=== PATIENT | male | born 1955 | race Caucasian/White ===

== ENCOUNTER 2019-02-19 10:37 | Inpatient (IN) | payer SELFPAY ==
[~2019-02-19] VITALS: Ht 175.3 cm; Wt 88.5 kg
[~2019-02-19 10:37] MED LIST: AMLO10TA4 PO; AMOX1TAB61 PO; ASPI-612 PO; ASPI325T8 PO; ATOR20TA58 PO; CARV6.25 PO; CLOP75TA PO; DILT360C PO; DOXY100T PO; FAMO-63 PO; FURO-69 PO; LEVO100T PO; LISI-338 PO; METH4TAB2 PO; METH4TAB7 PO; METO25TA4 PO; NICOTINE 21MG PATCH. TD PRN; Nicotine 21MG TD; OXYC1TAB15 PO
[2019-02-19] MEDS ORDERED: dilTIAZem IV PUSH 25 MG/5 ML VIAL IVP ONE (11:00)
[2019-02-19] MEDS ORDERED: dilTIAZem INJ 125 MG in IV DEXTROSE 5% 100ML 100 ML IV ONE (11:00)
--- NOTE | 2019-02-19 11:04 | PHYS DOC ---
Past Medical History Past Medical History: COPD, Hypertension, Other Additional Past Medical Histor: INSOMNIA Past Surgical History: Appendectomy, Other Additional Past Surgical Histo: 5TH DISC REMOVAL Alcohol Use: None Drug Use: None Adult General Chief Complaint Chief Complaint: MULTIPLE COMPLAINTS HPI HPI 63-year-old male presenting the emergency department today feeling generally weak with chest pain and having a fast heart rate. He has not felt well since he was discharged from the hospital here about a week ago. He has felt weak and generally without any focal weakness. This is worsened over the past few days. This morning he started having chest pain which is a sharp shooting nonradiating pain that is moderate comes and goes and is without alleviating factors. Review of systems is negative for abdominal pain vomiting fevers or neck pain neck stiffness diarrhea. All other review of systems is negative unless otherwise noted in history of present illness. ED course: 63-year-old male presenting emergency today feeling weak found to be in A. fib with RVR on EKG. EKG shows irregularly irregular rhythm with tachycardia. ST segments congruent. Not suggestive of ACS. IV established. Chest x-ray blood work ordered. Diltiazem bolus and drip ordered. CBC shows polycythemia. White blood cell count within normal limits. Chemistry panel shows mild elevation in potassium bilirubin and increased creatinine from baseline. ProBNP is also elevated. Troponin within normal limits. Chest x-ray shows mild asymmetric haziness likely related the patient's A. fib with RVR although could be atelectasis. I do not believe the patient is a pneumonia he is not coughing or have a fever. We will admit the patient to the CVC unit on diltiazem. Cardiology consult placed. Dr. Rodriguez accepts the patient for admission. Review of Systems Review of Systems SEE ABOVE. Current Medications Current Medications Current Medications Medications (Trade) Dose Ordered Sig/Tarun Start Time Stop Time Status Last Admin Dose Admin Diltiazem HCl (Cardizem Iv Push) 10 mg 1X ONCE 02/19/19 11:00 02/19/19 11:01 DC 02/19/19 11:15 10 MG Diltiazem HCl 125 mg/Dextrose 125 ml @ 5 mls/hr 1X ONCE 02/19/19 11:00 02/20/19 11:59 02/19/19 11:16 5 MLS/HR Allergies Allergies Allergies Coded Allergies Type Severity Reaction Last Updated Verified No Known Drug Allergies 06/11/15 No Physical Exam Physical Exam SEE ABOVE Constitutional: Not in acute distress. HENT: Normocephalic, atraumatic, bilateral external ears normal, oropharynx moist, no oral exudates, nose normal. Eyes: PERRLA, EOMI, conjunctiva normal, no discharge. Neck: Normal range of motion, no tenderness, supple, no stridor. [] Cardiovascular: Tachycardic rate that is irregular without a murmur. Lungs & Thorax: Bilateral breath sounds clear to auscultation Abdomen: Bowel sounds normal, soft, no tenderness, no masses, no pulsatile masses. [] Skin: Warm, dry, no erythema, no rash. [] Back: No tenderness, no CVA tenderness. [] Extremities: No tenderness, no cyanosis, no clubbing, ROM intact, no edema. [] Neurologic: Alert and oriented X 3, normal motor function, normal sensory function, no focal deficits noted. [] Psychologic: Affect normal, judgement normal, mood normal. [] Current Patient Data Vital Signs Vital Signs Date Time Temp Pulse Resp B/P (MAP) Pulse Ox O2 Delivery O2 Flow Rate FiO2 02/19/19 12:04 118 19 97/61 (73) 94 Room Air 02/19/19 10:40 97.4 97.4 Lab Values Laboratory Tests Test 02/19/19 10:52 02/19/19 11:40 White Blood Count 10.6 x10^3/uL (4.0-11.0) Red Blood Count 6.76 x10^6/uL (4.30-5.70) H Hemoglobin 21.2 g/dL (13.0-17.5) H Hematocrit 63.4 % (39.0-53.0) H Mean Corpuscular Volume 94 fL (79-100) Mean Corpuscular Hemoglobin 31 pg (25-35) Mean Corpuscular Hemoglobin Concent 33 g/dL (31-37) Red Cell Distribution Width 16.1 % (11.5-14.5) H Platelet Count 209 x10^3/uL (140-400) Neutrophils (%) (Auto) 70 % (31-73) Lymphocytes (%) (Auto) 18 % (24-48) L Monocytes (%) (Auto) 11 % (0-9) H Eosinophils (%) (Auto) 1 % (0-3) Basophils (%) (Auto) 0 % (0-3) Neutrophils # (Auto) 7.4 x10^3/uL (1.8-7.7) Lymphocytes # (Auto) 1.9 x10^3/uL (1.0-4.8) Monocytes # (Auto) 1.2 x10^3/uL (0.0-1.1) H Eosinophils # (Auto) 0.1 x10^3/uL (0.0-0.7) Basophils # (Auto) 0.0 x10^3/uL (0.0-0.2) Sodium Level 132 mmol/L (136-145) L Potassium Level 5.8 mmol/L (3.5-5.1) H Chloride Level 96 mmol/L (98-107) L Carbon Dioxide Level 33 mmol/L (21-32) H Anion Gap 3 (6-14) L Blood Urea Nitrogen 47 mg/dL (8-26) H Creatinine 2.1 mg/dL (0.7-1.3) H Estimated GFR (Cockcroft-Gault) 32.1 Glucose Level 144 mg/dL (70-99) H Calcium Level 9.4 mg/dL (8.5-10.1) Total Bilirubin 1.2 mg/dL (0.2-1.0) H Direct Bilirubin 0.3 mg/dL (0.0-0.2) H Aspartate Amino Transferase (AST) 34 U/L (15-37) Alanine Aminotransferase (ALT) 80 U/L (16-63) H Alkaline Phosphatase 65 U/L (46-116) Troponin I Quantitative < 0.017 ng/mL (0.000-0.055) KV-Wsv-L-Type Natriuretic Peptide 1258 pg/mL (0-124) H Total Protein 6.6 g/dL (6.4-8.2) Albumin 3.2 g/dL (3.4-5.0) L Lipase 201 U/L (73-393) Laboratory Tests 02/19/19 10:52 Laboratory Tests 02/19/19 11:40 EKG EKG [] Radiology/Procedures Radiology/Procedures [] Course & Med Decision Making Course & Med Decision Making Pertinent Labs and Imaging studies reviewed. (See chart for details) [] Dragon Disclaimer Dragon Disclaimer This electronic medical record was generated, in whole or in part, using a voice recognition dictation system. Departure Departure Impression: Primary Impression: Atrial fibrillation with RVR Additional Impression: DONI (acute kidney injury) Disposition: 09 ADMITTED INPATIENT Admitting Physician: KRISTIE Condition: STABLE Referrals: NO PCP (PCP) Problem Qualifiers BUDDY MATTA MD Feb 19, 2019 11:04
[2019-02-19 11:15] LABS: BASO % 0 % (0-3); EOS # 0.1 x10^3/uL (0.0-0.7); EOS % 1 % (0-3); HEMATOCRIT 63.4 % (39.0-53.0); LYMPH # 1.9 x10^3/uL (1.0-4.8); LYMPH % 18 % (24-48); MEAN CORPUSCULAR HEMOGLOBIN 31 pg (25-35); MEAN CORPUSCULAR HGB CONC 33 g/dL (31-37); MEAN CORPUSCULAR VOLUME 94 fL (79-100); MONO # 1.2 x10^3/uL (0.0-1.1); MONO % 11 % (0-9); NEUT # 7.4 x10^3/uL (1.8-7.7); NEUT % 70 % (31-73); PLATELET COUNT 209 x10^3/uL (140-400); RED BLOOD COUNT 6.76 x10^6/uL (4.30-5.70); RED CELL DISTRIBUTION WIDTH 16.1 % (11.5-14.5); WHITE BLOOD COUNT 10.6 x10^3/uL (4.0-11.0)
--- NOTE | 2019-02-19 11:15 | RAD ---
Study: CHEST AP ONLY Indication: Chest pain. Comparison: 02/10/2019 Findings: Emphysematous changes of the lungs with multifocal scarring and bullae formation. Ill-defined haziness at the left lung base potentially related to volume loss. No pneumothorax or layering effusion. Subtle ovoid density at the superior aspect of the left lower lobe projecting over the posterior aspect of the eighth rib. Unchanged configuration of the cardiomediastinal silhouette and yocasta. Scattered granulomas. Impression: 1. Mild asymmetric haziness at the left lung base is nonspecific but could be related to atelectasis though an infectious infiltrate could appear similar. Recommend correlation with patient symptomatology. 2. Bullous emphysematous changes of the lungs. 3. Subtle left lower lobe nodule projecting over the posterior aspect of the eighth rib measures similar in size to a nodule at this location seen on the 02/11/2019 CT, taking into consideration differences in technique. Follow-up for this nodule is recommended, the timing of which was detailed on the 02/11/2019 report. Electronically signed by: BIA SERNA MD (02/19/2019 11:12 AM) [facility]
--- NOTE | 2019-02-19 11:24 | EKG ---
[facility] [address] [place] [address] Test Date: 2019-02-19 Test Time: 10:46:28 Pat Name: TIMMY KINNEY Department: Room: Gender: M Reference Data Expert: : 1955 Requested By: BUDDY MATTA Order Number: [id number] Reading MD: Measurements Intervals [place] Rate: 150 P: MT: QRS: 119 QRSD: 108 T: 31 QT: 294 QTc: 467 Interpretive Statements IRREGULAR RHYTHM, NO P-WAVE FOUND ABNORMAL RIGHT AXIS DEVIATION R-S TRANSITION ZONE IN V LEADS DISPLACED TO THE LEFT ABNORMAL ECG RI6.01 No previous ECG available for comparison
[2019-02-19 11:49] LABS: HEMOGLOBIN 21.2 g/dL (13.0-17.5)
[2019-02-19 12:04] LABS: CALCIUM 9.4 mg/dL (8.5-10.1); CREATININE 2.1 mg/dL (0.7-1.3); GFR 32.1; POTASSIUM 5.8 mmol/L (3.5-5.1)
--- NOTE | 2019-02-19 12:08 | PDOC1 ---
History and Physical Date of Admission Date of Admission DATE: 02/19/19 TIME: 12:08 Identification/Chief Complaint Chief Complaint Chest pain Source Source: Patient History of Present Illness History of Present Illness Mr Herrera is a 63-year-old M w/ PMHx smoker, CAD, HTN, HLD, COPD, GERD, OA, recovering methamphetamine user (quit 3 weeks ago) with recent diagnosis of LL pneumonia and AFIB with RVR returns with afib with RVR and DONI with large bump in creatinine to 2.1, K of 5.8, as well as Hb 21. He is feeling worse than his prior hospital stay, unable to get up out of bed. He was also diagnosed with severe cardiomyopathy with EF 20-25% and hypothyroidism last stay with TSH of 24 and started on levothyroxine 100mcg daily as well as carvedilol and lisinopril. He also notes his significant other on 12/15/2018 and he has been grief stricken, has no one with whom to spend Thanksgiving. Past Medical History Cardiovascular: CAD, HTN, Hyperlipidemia Pulmonary: COPD, Pneumonia GI: GERD Musculoskeletal: low back pain, Osteoarthritis Renal/: Other Past Surgical History Past Surgical History: Appendectomy, Other Family History Family History: Family History Unknown Social History Smoke: 1 pack per day ALCOHOL: rare Drugs: Crystal meth Current Medications Current Medications Current Medications Diltiazem HCl (Cardizem Iv Push) 10 mg 1X ONCE IVP Last administered on 02/19/19at 11:15; Start 02/19/19 at 11:00; Stop 02/19/19 at 11:01; Status DC Diltiazem HCl 125 mg/Dextrose 125 ml @ 5 mls/hr 1X ONCE IV Last administered on 02/19/19at 11:16; Start 02/19/19 at 11:00; Stop 02/20/19 at 11:59 Active Scripts Active Aspirin Ec (Aspirin) 81 Mg Tablet. 1 Tab PO DAILY Lasix (Furosemide) 20 Mg Tablet 1 Tab PO DAILY 30 Days Coreg (Carvedilol) 6.25 Mg Tablet 6.25 Mg PO BIDWMEALS 30 Days Lisinopril 5 Mg Tablet 1 Tab PO DAILY MDD 30 Percocet 5-325 Mg Tablet (Oxycodone/Acetaminophen) 1 Each Tablet 1 Tab PO PRN Q4HRS PRN Atorvastatin Calcium 20 Mg Tablet 20 Mg PO QHS [Nicotine 21MG] 1 PATCH Patch 1 Patch TD PRN DAILY PRN Doxycycline Hyclate 100 Mg Tablet 100 Mg PO BID Clopidogrel (Clopidogrel Bisulfate) 75 Mg Tablet 75 Mg PO DAILY Reported Medrol (Methylprednisolone) 4 Mg Tab.ds.pk 4 Mg PO DAILY Synthroid (Levothyroxine Sodium) 100 Mcg Tablet 100 Mcg PO DAILYAC Pepcid (Famotidine) 20 Mg Tablet 20 Mg PO BID Allergies Allergies: Coded Allergies: No Known Drug Allergies (Unverified , 06/11/15) ROS General: YES: Fatigue, Malaise; No: Chills, Night Sweats, Appetite, Other PSYCHOLOGICAL ROS: No: Anxiety, Behavioral Disorder, Concentration difficultie, Decreased libido, Depression, Disorientation, Hallucinations, Hostility, Irritablity, Memory difficulties, Mood Swings, Obsessive thoughts, Physical abuse, Sexual abuse, Sleep disturbances, Suicidal ideation, Other Eyes: No Blurry vision, No Decreased vision, No Double vision, No Dry eyes, No Excessive tearing, No Eye Pain, No Itchy Eyes, No Loss of vision, No Photophobia, No Scotomata, No Uses contacts, No Uses glasses, No Other HEENT: No: Heacaches, Visual Changes, Hearing change, Nasal congestion, Nasal discharge, Oral lesions, Sinus pain, Sore Throat, Epistaxis, Sneezing, Snoring, Tinnitus, Vertigo, Vocal changes, Other ALLERGY AND IMMUNOLOGY: No: Hives, Insect Bite Sensitivity, Itchy/Watery Eyes, Nasal Congestion, Post Nasal Drip, Seasonal Allergies, Other Hematological and Lymphatic: No: Bleeding Problems, Blood Clots, Blood Transfusions, Brusing, Night Sweats, Pallor, Swollen Lymph Nodes, Other ENDOCRINE: No: Breast Changes, Galactorrhea, Hair Pattern Changes, Hot Flashes, Malaise/lethargy, Mood Swings, Palpitations, Polydipsia/polyuria, Skin Changes, Temperature Intolerance, Unexpected Weight Changes, Other Breast: No New/Changing Breast Lumps, No Nipple changes, No Nipple discharge, No Other Respiratory: YES: Shortness of breath; No: Cough, Hemoptysis, Orthopnea, Pleuritic Pain, SOB with excertion, Sputum Changes, Stridor, Tachypnea, Wheezing, Other Cardiovascular: No Chest Pain, No Palpitations, No Orthopnea, No Paroxysmal Noc. Dyspnea, No Edema, No Lt Headedness, No Other Gastrointestinal: No Nausea, No Vomiting, No Abdominal Pain, No Diarrhea, No Constipation, No Melena, No Hematochezia, No Other Genitourinary: No Dysuria, No Frequency, No Incontinence, No Hematuria, No Retention, No Discharge, No Urgency, No Pain, No Flank Pain, No Other, No , No , No , No , No , No , No Musculoskeletal: No Gait Disturbance, No Joint Pain, No Joint Stiffness, No Joint Swelling, No Muscle Pain, No Muscular Weakness, No Pain In:, No Swelling In:, No Other Neurological: No Behavorial Changes, No Bowel/Bladder ControlChng, No Confusion, No Dizziness, No Gait Disturbance, No Headaches, No Impaired Coord/balance, No Memory Loss, No Numbness/Tingling, No Seizures, No Speech Problems, No Tremors, No Visual Changes, No Weakness, No Other Skin: No Dry Skin, No Eczema, No Hair Changes, No Lumps, No Mole Changes, No Mottling, No Nail Changes, No Pruritus, No Rash, No Skin Lesion Changes, No Other, No Acne Physical Exam General: Alert, Oriented X3, Cooperative, mild distress HEENT: Atraumatic, PERRLA, EOMI, Mucous membr. moist/pink Lungs: Other (Scattered wheezing) Heart: irregularly irregular Abdomen: Normal bowel sounds, Soft, No tenderness, No hepatosplenomegaly, No masses Rectal Exam: not examined Extremities: No clubbing, No cyanosis, No edema, Normal pulses, No tenderness/swelling Skin: No rashes, No breakdown, No significant lesion Neuro: Normal speech, Strength at 5/5 X4 ext, Normal tone, Sensation intact, Cranial nerves 3-12 NL, Reflexes 2+ Psych/Mental Status: Mental status NL, Mood NL Vitals Vitals Vital Signs Date Time Temp Pulse Resp B/P (MAP) Pulse Ox O2 Delivery O2 Flow Rate FiO2 02/19/19 11:34 122 24 96/73 (81) 94 Room Air 02/19/19 10:40 97.4 97.4 Labs Labs Laboratory Tests Test 02/19/19 10:52 02/19/19 11:40 White Blood Count 10.6 x10^3/uL (4.0-11.0) Red Blood Count 6.76 x10^6/uL (4.30-5.70) Hemoglobin 21.2 g/dL (13.0-17.5) Hematocrit 63.4 % (39.0-53.0) Mean Corpuscular Volume 94 fL (79-100) Mean Corpuscular Hemoglobin 31 pg (25-35) Mean Corpuscular Hemoglobin Concent 33 g/dL (31-37) Red Cell Distribution Width 16.1 % (11.5-14.5) Platelet Count 209 x10^3/uL (140-400) Neutrophils (%) (Auto) 70 % (31-73) Lymphocytes (%) (Auto) 18 % (24-48) Monocytes (%) (Auto) 11 % (0-9) Eosinophils (%) (Auto) 1 % (0-3) Basophils (%) (Auto) 0 % (0-3) Neutrophils # (Auto) 7.4 x10^3/uL (1.8-7.7) Lymphocytes # (Auto) 1.9 x10^3/uL (1.0-4.8) Monocytes # (Auto) 1.2 x10^3/uL (0.0-1.1) Eosinophils # (Auto) 0.1 x10^3/uL (0.0-0.7) Basophils # (Auto) 0.0 x10^3/uL (0.0-0.2) Sodium Level 132 mmol/L (136-145) Potassium Level 5.8 mmol/L (3.5-5.1) Chloride Level 96 mmol/L (98-107) Carbon Dioxide Level 33 mmol/L (21-32) Anion Gap 3 (6-14) Blood Urea Nitrogen 47 mg/dL (8-26) Creatinine 2.1 mg/dL (0.7-1.3) Estimated GFR (Cockcroft-Gault) 32.1 Glucose Level 144 mg/dL (70-99) Calcium Level 9.4 mg/dL (8.5-10.1) Laboratory Tests Test 02/19/19 10:52 02/19/19 11:40 White Blood Count 10.6 x10^3/uL (4.0-11.0) Red Blood Count 6.76 x10^6/uL (4.30-5.70) Hemoglobin 21.2 g/dL (13.0-17.5) Hematocrit 63.4 % (39.0-53.0) Mean Corpuscular Volume 94 fL (79-100) Mean Corpuscular Hemoglobin 31 pg (25-35) Mean Corpuscular Hemoglobin Concent 33 g/dL (31-37) Red Cell Distribution Width 16.1 % (11.5-14.5) Platelet Count 209 x10^3/uL (140-400) Neutrophils (%) (Auto) 70 % (31-73) Lymphocytes (%) (Auto) 18 % (24-48) Monocytes (%) (Auto) 11 % (0-9) Eosinophils (%) (Auto) 1 % (0-3) Basophils (%) (Auto) 0 % (0-3) Neutrophils # (Auto) 7.4 x10^3/uL (1.8-7.7) Lymphocytes # (Auto) 1.9 x10^3/uL (1.0-4.8) Monocytes # (Auto) 1.2 x10^3/uL (0.0-1.1) Eosinophils # (Auto) 0.1 x10^3/uL (0.0-0.7) Basophils # (Auto) 0.0 x10^3/uL (0.0-0.2) Sodium Level 132 mmol/L (136-145) Potassium Level 5.8 mmol/L (3.5-5.1) Chloride Level 96 mmol/L (98-107) Carbon Dioxide Level 33 mmol/L (21-32) Anion Gap 3 (6-14) Blood Urea Nitrogen 47 mg/dL (8-26) Creatinine 2.1 mg/dL (0.7-1.3) Estimated GFR (Cockcroft-Gault) 32.1 Glucose Level 144 mg/dL (70-99) Calcium Level 9.4 mg/dL (8.5-10.1) VTE Prophylaxis Ordered VTE Prophylaxis Devices: Yes VTE Pharmacological Prophylaxi: Yes Assessment/Plan Assessment/Plan A/P: Afib with RVR - with Atrial flutter: paroxysmal, was sinus prior to d/c last visit on coreg, he has been taking this. Severe cardiomyopathy - EF 20-25% DONI - with his atrophied left kidney on prior CT and recent lisinopril exposure and hyperkalemia will stop his lisinopril and transition to imdur + hydralazine. Will get renal doppler given his large Cr bump with lisinopril administration Hyperkalemia - hold lisinopril, kayexelate Hypothyroidism - TSH 24 Smoker - counseled on cessation CAD - LAD stenting in 2017 COPD - with continued tobaccoism better Chronic diastolic/systolic CHF: EF 20-25% HTN - controlled HLD - goal LDL is < 70mg/dL Moderate size infrarenal AAA Recovering methamphetamine user (quit 3 weeks ago) GERD - tums prn FEN - Cardiac diet PPX - eliquis per cardiology recs FULL CODE Dispo - Inpatient for recurrent atrial arrhythmia, DONI, cardiomyopathy. DONNA CLINE MD Feb 19, 2019 12:08
[2019-02-19 12:10] LABS: ALBUMIN 3.2 g/dL (3.4-5.0); DIRECT BILIRUBIN 0.3 mg/dL (0.0-0.2); TOTAL BILIRUBIN 1.2 mg/dL (0.2-1.0); TOTAL PROTEIN 6.6 g/dL (6.4-8.2)
[2019-02-19] MEDS ORDERED: MORPHINE SULFATE 2 MG/ML VIAL. IV PRN (12:45)
[2019-02-19] MEDS ORDERED: ONDANSETRON PF 4 MG/2 ML VIAL. IV PRN (12:45)
[2019-02-19 12:50] VITALS: BP 96/61
[2019-02-19 12:55] LABS: PROTHROMBIN TIME PATIENT 13.4 SEC (11.7-14.0)
--- NOTE | 2019-02-19 13:11 | PDOC2 ---
TEE SCHMITZ [employer] 02/19/19 1310: CARDIAC CONSULT DATE OF CONSULT Date of Consult DATE: 02/19/19 TIME: 13:05 REASON FOR CONSULT Reason for Consult: AFIB with RVR REFERRING PHYSICIAN Referring Physician: Dr. Santiago SOURCE Source: Chart review, Patient HISTORY OF PRESENT ILLNESS HISTORY OF PRESENT ILLNESS This is a 63 yo male who presented secondary to tingling in his extremities and chest pressure. Patient reports that he woke up this morning with tingling in his bilateral extremities. Also was experiencing pressure in his central chest. His symptoms persisted throughout the morning so her decided to come to the ED for further evaluation and treatment. Was seen by our service last week for new onset of AFIB RVR. Was initially started on metoprolol for rate control and converted back to SR. Prior to discharge Toprol was convert to coreg assuming for affordability. Was discharged with ASA as he does not have insurance. Echo showed LVEF of 20-25%. Applied for disability. Has a history of meth use and tobaccoism. Fortunately, has not smoked or use meth since discharge from the hospital. Now reporting that he has very little energy and feels very fatigued. Has been compliant with all of his medications and took them as usual today. PAST MEDICAL HISTORY Past Medical History Cardiovascular: CAD, HTN, Hyperlipidemia, AFIB, Cardiomyopathy, CHF, Pulmonary: COPD, Pneumonia GI: GERD Musculoskeletal: low back pain, Osteoarthritis Renal/: Other (nephrolithiasis) PAST SURGICAL HISTORY Past Surgical History Appendectomy, Other (back surgery; PCI/stent) FAMILY HISTORY Family History: Family History Unknown SOCIAL HISTORY Social History Smoke: <1 pack per day (quit 1.5 weeks ago) Drugs: Crystal meth (quit 2 weeks ago) Lives: Alone CURRENT MEDICATIONS CURRENT MEDICATIONS Current Medications Medications (Trade) Dose Ordered Sig/Tarun Route PRN Reason Start Time Stop Time Status Last Admin Dose Admin Diltiazem HCl (Cardizem Iv Push) 10 mg 1X ONCE IVP 02/19/19 11:00 02/19/19 11:01 DC 02/19/19 11:15 Diltiazem HCl 125 mg/Dextrose 125 ml @ 5 mls/hr 1X ONCE IV 02/19/19 11:00 02/20/19 11:59 02/19/19 11:16 ALLERGIES ALLERGIES: Coded Allergies: No Known Drug Allergies (Unverified , 3/18/16) ROS Review of System 14 point ROS conducted with pertinent positives noted above in HPI PHYSICAL EXAM PHYSICAL EXAM General: Alert, Oriented X3, Cooperative, No acute distress HEENT: Mucous membr. moist/pink Lungs: Other (CTA, diminished) Heart: AFIB (rate near 100) Abdomen: Soft, No tenderness Extremities: No cyanosis, No edema Skin: No breakdown, No significant lesion Neuro: Normal speech, Sensation intact Psych/Mental Status: Mental status NL, Mood NL MUSCULOSKELETAL: Osteoarthritic changes both hands VITALS/I&O VITALS/I&O: Vital Signs Date Time Temp Pulse Resp B/P (MAP) Pulse Ox O2 Delivery O2 Flow Rate FiO2 02/19/19 12:34 112 22 100/65 (77) 96 Room Air 02/19/19 10:40 97.4 97.4 LABS Lab: Laboratory Tests Test 02/19/19 10:52 02/19/19 11:40 White Blood Count 10.6 x10^3/uL (4.0-11.0) Red Blood Count 6.76 x10^6/uL (4.30-5.70) H Hemoglobin 21.2 g/dL (13.0-17.5) H Hematocrit 63.4 % (39.0-53.0) H Mean Corpuscular Volume 94 fL (79-100) Mean Corpuscular Hemoglobin 31 pg (25-35) Mean Corpuscular Hemoglobin Concent 33 g/dL (31-37) Red Cell Distribution Width 16.1 % (11.5-14.5) H Platelet Count 209 x10^3/uL (140-400) Neutrophils (%) (Auto) 70 % (31-73) Lymphocytes (%) (Auto) 18 % (24-48) L Monocytes (%) (Auto) 11 % (0-9) H Eosinophils (%) (Auto) 1 % (0-3) Basophils (%) (Auto) 0 % (0-3) Neutrophils # (Auto) 7.4 x10^3/uL (1.8-7.7) Lymphocytes # (Auto) 1.9 x10^3/uL (1.0-4.8) Monocytes # (Auto) 1.2 x10^3/uL (0.0-1.1) H Eosinophils # (Auto) 0.1 x10^3/uL (0.0-0.7) Basophils # (Auto) 0.0 x10^3/uL (0.0-0.2) Sodium Level 132 mmol/L (136-145) L Potassium Level 5.8 mmol/L (3.5-5.1) H Chloride Level 96 mmol/L (98-107) L Carbon Dioxide Level 33 mmol/L (21-32) H Anion Gap 3 (6-14) L Blood Urea Nitrogen 47 mg/dL (8-26) H Creatinine 2.1 mg/dL (0.7-1.3) H Estimated GFR (Cockcroft-Gault) 32.1 Glucose Level 144 mg/dL (70-99) H Calcium Level 9.4 mg/dL (8.5-10.1) Total Bilirubin 1.2 mg/dL (0.2-1.0) H Direct Bilirubin 0.3 mg/dL (0.0-0.2) H Aspartate Amino Transferase (AST) 34 U/L (15-37) Alanine Aminotransferase (ALT) 80 U/L (16-63) H Alkaline Phosphatase 65 U/L (46-116) Troponin I Quantitative < 0.017 ng/mL (0.000-0.055) NT-Ffn-F-Type Natriuretic Peptide 1258 pg/mL (0-124) H Total Protein 6.6 g/dL (6.4-8.2) Albumin 3.2 g/dL (3.4-5.0) L Lipase 201 U/L (73-393) Laboratory Tests 02/19/19 10:52 Laboratory Tests 02/19/19 11:40 ECHOCARDIOGRAM ECHOCARDIOGRAM <Conclusion> The ejection fraction is severely impaired. The Ejection Fraction is 20-25%. There is severe global hypokinesis. The ascending aorta is mildly dilated. DATE: 02/11/19 1229 HEART CATH HEART CATH Conclusion This patient has significant coronary artery disease with a tight lesion of the LAD. A successful PTCA and stenting of the LAD was done with a bare metal stent. The reason a bare metal stent was used is due to the financial situation of the patient I don't know if he would be able to afford Plavix for a year and also in view of lifestyle and recreational activities he may be at risk for bleeding. I would like to give him 6 months of Plavix and aspirin for life. DATE: 07/19/161825 ASSESSMENT/PLAN ASSESSMENT/PLAN 1. PAFIB with RVR; on Cardizem gtt. Was started on metoprolol last week, but convert to coreg upon discharge. Reports compliance with medications. 2. Chest pain; most probably secondary to RVR. Initial trop negative 3. Hypothyroidism: TSH 24. new. 4. COPD with tobaccoism; recently quit 5. Chronic systolic CHF; appear compensated 6. Cardiomyopathy, combined NICM/ICM; LVEF 20-25% 7. Hypertension; controlled 8. Hyperlipidemia; statin 9. CAD s/p PCI/stent to the LAD in 2017. 10. DONI on ? CKD 11. Substance abuse; H/o meth use. Has not use since last admission Recommendations Stop coreg. Start metoprolol for rate control. Toprol would be most ideal, but he will be unable to afford. Titrate off Cardizem gtt Add Amiodarone for rhythm maintenance Start Eliquis for stroke prophylaxis; 21 days of samples provided along with 1 month free card Resume secondary prevention measures Supportive care CHRISTY PERDOMO MD 02/19/19 1555: CARDIAC CONSULT ASSESSMENT/PLAN ASSESSMENT/PLAN Patient seen and examined. Agree with above nurse practitioner note. Well-known to our service since his last visit. Unfortunate, he's had a lot of social issues to deal with yet he reports that he started his medical therapy. Medication changes as noted above. Given his cardio myopathy and lack of insurance he will likely be unable to afford anything besides amiodarone at this time. THanks. Will follow along. Could consider CVN on sunday if still in afib. TEE SCHMITZ APRN Feb 19, 2019 13:10 CHRISTY PERDOMO MD Feb 19, 2019 15:55
[2019-02-19 13:12] LABS: D-DIMER 1.79 ug/mlFEU (0.00-0.50)
[2019-02-19] MEDS ORDERED: METOPROLOL TART IMMED RELEASE 25 MG TABLET. PO SCH ×2 (14:30→18:00)
[2019-02-19] MEDS ORDERED: METOPROLOL TART IMMED RELEASE 25 MG TABLET. PO ONE (14:45)
[2019-02-19] MEDS: hydrALAZINE 10 MG TABLET PO SCH ×2 (14:45→20:52)
[2019-02-19] MEDS: ISOSORBIDE MONONITRATE ER 30 MG TAB.ER.24H PO SCH (14:45)
[2019-02-19 15:00] VITALS: BP 107/55
[2019-02-19 15:15] VITALS: BP_SYST 107; BP_SYST 95; BP_DIAS 55; BP_DIAS 63
--- NOTE | 2019-02-19 16:09 | RAD ---
STUDY: THYROID ULTRASOUND INDICATION: Hypothyroidism. COMPARISON STUDY: None. TECHNIQUE: Targeted thyroid ultrasound was performed. FINDINGS: The thyroid is prominent in size with heterogeneous parenchymal echotexture and a paucity of vascularity. The right thyroid lobe is larger than the left measuring 6.1 x 2.5 x 1.8 cm compared to 4.0 x 1.7 x 1.4 cm. The isthmus is thickened at 1.3 cm. Within the left aspect of the isthmus a well-circumscribed, hypoechoic and avascular region as seen and measures 1.0 x 1.6 x 1.0 cm. IMPRESSION: 1. Enlarged thyroid gland with asymmetric prominence of the right thyroid lobe relative to the left. The thyroid parenchyma is heterogeneous and hypovascular which is a nonspecific sonographic pattern. 2. Small well-circumscribed and avascular focus within the left aspect of the isthmus suggestive of a cystic nodule and measures up to 1.6 cm in greatest dimension. This nodule does not exhibit suspicious features by sonography. Electronically signed by: BIA SERNA MD (02/19/2019 4:06 PM) [facility]
[2019-02-19] MEDS ORDERED: CARVEDILOL 6.25 MG TABLET. PO SCH (17:00)
[2019-02-19] MEDS: METOPROLOL TART IMMED RELEASE 25 MG TABLET. PO SCH (17:24)
[2019-02-19 17:44] LABS: BASO # 0.1 x10^3/uL (0.0-0.2); BASO % 1 % (0-3); EOS # 0.1 x10^3/uL (0.0-0.7); EOS % 1 % (0-3); HEMATOCRIT 57.5 % (39.0-53.0); HEMOGLOBIN 19.1 g/dL (13.0-17.5); LYMPH # 2.2 x10^3/uL (1.0-4.8); LYMPH % 19 % (24-48); MEAN CORPUSCULAR HEMOGLOBIN 31 pg (25-35); MEAN CORPUSCULAR HGB CONC 33 g/dL (31-37); MEAN CORPUSCULAR VOLUME 93 fL (79-100); MONO # 1.9 x10^3/uL (0.0-1.1); MONO % 16 % (0-9); NEUT # 7.4 x10^3/uL (1.8-7.7); NEUT % 64 % (31-73); PLATELET COUNT 195 x10^3/uL (140-400); RED CELL DISTRIBUTION WIDTH 15.9 % (11.5-14.5); WHITE BLOOD COUNT 11.5 x10^3/uL (4.0-11.0)
[2019-02-19 18:08] LABS: ALBUMIN 3.1 g/dL (3.4-5.0); CALCIUM 9.2 mg/dL (8.5-10.1); CREATININE 2.3 mg/dL (0.7-1.3); GFR 28.9; PHOSPHORUS 4.3 mg/dL (2.6-4.7); POTASSIUM 5.6 mmol/L (3.5-5.1)
[2019-02-19 19:00] VITALS: BP 147/107
[2019-02-19 19:24] LABS: % EOS 2 % (0-5); % LYMPHS 12 % (24-48); % MONOS 17 % (0-10); % SEGS 69 % (35-66); ANISOCYTOSIS SLIGHT; PLT ESTIMATE ADEQUATE (ADEQUATE)
--- NOTE | 2019-02-19 19:59 | NUR ---
hr irregular 140's reported to dr luo, said to use prn lopressor due to pt having heart failure. lcrn
[2019-02-19] MEDS: METOPROLOL TARTRATE 5 MG/5 ML VIAL. IVP PRN ×2 (20:08→22:56)
[2019-02-19 20:15] VITALS: BP 115/80
[2019-02-19] MEDS: ATORVASTATIN CALCIUM 20 MG TABLET PO SCH (20:51)
[2019-02-19] MEDS: APIXABAN 5 MG TABLET. PO SCH (20:52)
[2019-02-19] MEDS: AMIODARONE HCL 200 MG TABLET. PO SCH (20:52)
[2019-02-19 21:22] LABS: BARBITURATES NEG (NEG); BENZODIAZEPINES NEG (NEG); CANNABINOIDS NEG (NEG); COCAINE NEG (NEG); METHADONE NEG (NEG); OPIATES NEG (NEG); PHENCYCLIDINE NEG (NEG)
[2019-02-19 21:23] LABS: AMPHETAMINE/METHAMPHETAMINE NEG (NEG)
[2019-02-19] MEDS: TEMAZEPAM 15 MG CAPSULE PO PRN (22:56)
[2019-02-19 23:20] VITALS: BP 90/57
[2019-02-20] VITALS (15 sets, daily range): BP systolic 86–135; BP diastolic 45–78
[2019-02-20] MEDS: METOPROLOL TART IMMED RELEASE 25 MG TABLET. PO SCH ×4 (01:24→18:00)
[2019-02-20] MEDS: METOPROLOL TARTRATE 5 MG/5 ML VIAL. IVP PRN (03:50)
--- NOTE | 2019-02-20 05:40 | NUR ---
spoke with Dr Gallegos about pt's hr. have given 3 prn doses of iv lopressor plus his po lopressor. no change in hr. 140-160. updated on potassium and wbc values. see order for iv dig. lcrn
[2019-02-20] MEDS ORDERED: DIGOXIN IV 500 MCG/2 ML AMPUL. IV ONE (06:00)
[2019-02-20] MEDS: LEVOTHYROXINE 100 MCG TABLET PO SCH (06:12)
[2019-02-20 06:36] LABS: CALCIUM 8.5 mg/dL (8.5-10.1); CREATININE 2.1 mg/dL (0.7-1.3); GFR 32.1; POTASSIUM 4.7 mmol/L (3.5-5.1)
[2019-02-20 07:04] LABS: BASO # 0.1 x10^3/uL (0.0-0.2); BASO % 1 % (0-3); EOS # 0.2 x10^3/uL (0.0-0.7); EOS % 2 % (0-3); HEMATOCRIT 57.3 % (39.0-53.0); HEMOGLOBIN 19.3 g/dL (13.0-17.5); LYMPH # 2.7 x10^3/uL (1.0-4.8); LYMPH % 24 % (24-48); MEAN CORPUSCULAR HEMOGLOBIN 31 pg (25-35); MEAN CORPUSCULAR HGB CONC 34 g/dL (31-37); MEAN CORPUSCULAR VOLUME 93 fL (79-100); MONO # 1.7 x10^3/uL (0.0-1.1); MONO % 15 % (0-9); NEUT # 6.4 x10^3/uL (1.8-7.7); NEUT % 58 % (31-73); PLATELET COUNT 187 x10^3/uL (140-400); RED BLOOD COUNT 6.16 x10^6/uL (4.30-5.70); RED CELL DISTRIBUTION WIDTH 16.1 % (11.5-14.5); WHITE BLOOD COUNT 11.1 x10^3/uL (4.0-11.0)
--- NOTE | 2019-02-20 08:45 | RAD ---
RENAL BILAT RENAL DUPLEX CO History: Hypertension Comparison: CT exam February 11, 2018 Findings: Multiple grayscale, color, and duplex spectral analysis waveform images of the right kidney and abdominal aorta are submitted. Markedly atrophic left kidney as seen on CT could not be visualized on ultrasound. Right kidney measured 12.4 x 6.6 x 6 cm, no hydronephrosis. Abdominal aortic peak systolic velocity was 88 cm/s. Proximal right renal artery PSV 110 cm/s, middle right renal artery PSV 96 cm/s, distal right renal artery PSV 87 cm/s. Right RA/aorta ratio 1.25. Maximal right renal resistive index 0.64 of the middle right renal artery. There is flow demonstrated in the right renal vein. There is abnormal appearing waveform of the right renal artery although may be accentuated by patient's elevated heart rate reportedly at 144 bpm. Incidental note is made of cholelithiasis. Impression: 1. There is no significant velocity elevation of the right renal artery to suggest hemodynamically significant stenosis although abnormal appearing waveform present which may be related to the patient's elevated heart rate during exam. Markedly atrophic left kidney as seen on CT could not be visualized by ultrasound. There is no right hydronephrosis. 2. Incidental note is made of cholelithiasis. Electronically signed by: Edinson Schaeffer MD (02/20/2019 8:42 AM) [facility]
[2019-02-20] MEDS: hydrALAZINE 10 MG TABLET PO SCH ×3 (09:00→21:00)
[2019-02-20] MEDS: ISOSORBIDE MONONITRATE ER 30 MG TAB.ER.24H PO SCH (09:00)
[2019-02-20] MEDS: APIXABAN 5 MG TABLET. PO SCH ×2 (09:12→21:06)
[2019-02-20] MEDS: FAMOTIDINE 20 MG TABLET. PO SCH (09:12)
--- NOTE | 2019-02-20 09:12 | PDOC ---
CARDIOLOGY PROGRESS NOTE SUBJECTIVE: No acute events. OBJECTIVE: Vital Signs/I&O: Vital Signs Date Time Temp Pulse Resp B/P (MAP) Pulse Ox O2 Delivery O2 Flow Rate FiO2 02/20/19 07:40 Room Air 02/20/19 07:00 98.0 144 20 114/71 (85) 94 98.0 I & O 02/19/19 02/19/19 02/20/19 15:00 23:00 07:00 Intake Total 2500 ml Output Total 301 ml Balance 2199 ml Objective: a/o x 3. Decreased breath sounds bilaterally. No edema. Irregular heart tones. CURRENT MEDICATIONS: amiodarone, metoprolol, digoxin eliquis DIAGNOSTIC TESTING: No new labs. Reviewed renal duplex Labs: Laboratory Tests 02/20/19 05:53 Laboratory Tests Test 02/19/19 10:52 02/19/19 11:40 02/19/19 12:35 02/19/19 17:35 White Blood Count 10.6 x10^3/uL (4.0-11.0) 11.5 x10^3/uL (4.0-11.0) H Red Blood Count 6.76 x10^6/uL (4.30-5.70) H 6.20 x10^6/uL (4.30-5.70) H Hemoglobin 21.2 g/dL (13.0-17.5) H 19.1 g/dL (13.0-17.5) H Hematocrit 63.4 % (39.0-53.0) H 57.5 % (39.0-53.0) H Mean Corpuscular Volume 94 fL (79-100) 93 fL (79-100) Mean Corpuscular Hemoglobin 31 pg (25-35) 31 pg (25-35) Mean Corpuscular Hemoglobin Concent 33 g/dL (31-37) 33 g/dL (31-37) Red Cell Distribution Width 16.1 % (11.5-14.5) H 15.9 % (11.5-14.5) H Platelet Count 209 x10^3/uL (140-400) 195 x10^3/uL (140-400) Neutrophils (%) (Auto) 70 % (31-73) 64 % (31-73) Lymphocytes (%) (Auto) 18 % (24-48) L 19 % (24-48) L Monocytes (%) (Auto) 11 % (0-9) H 16 % (0-9) H Eosinophils (%) (Auto) 1 % (0-3) 1 % (0-3) Basophils (%) (Auto) 0 % (0-3) 1 % (0-3) Neutrophils # (Auto) 7.4 x10^3/uL (1.8-7.7) 7.4 x10^3/uL (1.8-7.7) Lymphocytes # (Auto) 1.9 x10^3/uL (1.0-4.8) 2.2 x10^3/uL (1.0-4.8) Monocytes # (Auto) 1.2 x10^3/uL (0.0-1.1) H 1.9 x10^3/uL (0.0-1.1) H Eosinophils # (Auto) 0.1 x10^3/uL (0.0-0.7) 0.1 x10^3/uL (0.0-0.7) Basophils # (Auto) 0.0 x10^3/uL (0.0-0.2) 0.1 x10^3/uL (0.0-0.2) Sodium Level 132 mmol/L (136-145) L 132 mmol/L (136-145) L Potassium Level 5.8 mmol/L (3.5-5.1) H 5.6 mmol/L (3.5-5.1) H Chloride Level 96 mmol/L (98-107) L 96 mmol/L (98-107) L Carbon Dioxide Level 33 mmol/L (21-32) H 30 mmol/L (21-32) Anion Gap 3 (6-14) L 6 (6-14) Blood Urea Nitrogen 47 mg/dL (8-26) H 53 mg/dL (8-26) H Creatinine 2.1 mg/dL (0.7-1.3) H 2.3 mg/dL (0.7-1.3) H Estimated GFR (Cockcroft-Gault) 32.1 28.9 Glucose Level 144 mg/dL (70-99) H 154 mg/dL (70-99) H Calcium Level 9.4 mg/dL (8.5-10.1) 9.2 mg/dL (8.5-10.1) Total Bilirubin 1.2 mg/dL (0.2-1.0) H Direct Bilirubin 0.3 mg/dL (0.0-0.2) H Aspartate Amino Transf (AST/SGOT) 34 U/L (15-37) Alkaline Phosphatase 65 U/L (46-116) Total Protein 6.6 g/dL (6.4-8.2) Albumin 3.2 g/dL (3.4-5.0) L 3.1 g/dL (3.4-5.0) L Lipase 201 U/L (73-393) Prothrombin Time 13.4 SEC (11.7-14.0) Prothromb Time International Ratio 1.1 (0.8-1.1) Activated Partial Thromboplast Time 25 SEC (24-38) D-Dimer (Deneen) 1.79 ug/mlFEU (0.00-0.50) H Segmented Neutrophils % 69 % (35-66) H Lymphocytes % 12 % (24-48) L Monocytes % 17 % (0-10) H Eosinophils % 2 % (0-5) Platelet Estimate Adequate (ADEQUATE) Large Platelets Occ Anisocytosis Slight Phosphorus Level 4.3 mg/dL (2.6-4.7) Test 02/19/19 21:00 02/20/19 05:53 Urine Opiates Screen Neg (NEG) Urine Methadone Screen Neg (NEG) Urine Barbiturates Neg (NEG) Urine Phencyclidine Screen Neg (NEG) Urine Amphetamine/Methamphetamine Neg (NEG) Urine Benzodiazepines Screen Neg (NEG) Urine Cocaine Screen Neg (NEG) Urine Cannabinoids Screen Neg (NEG) Urine Ethyl Alcohol Neg (NEG) White Blood Count 11.1 x10^3/uL (4.0-11.0) H Red Blood Count 6.16 x10^6/uL (4.30-5.70) H Hemoglobin 19.3 g/dL (13.0-17.5) H Hematocrit 57.3 % (39.0-53.0) H Mean Corpuscular Volume 93 fL (79-100) Mean Corpuscular Hemoglobin 31 pg (25-35) Mean Corpuscular Hemoglobin Concent 34 g/dL (31-37) Red Cell Distribution Width 16.1 % (11.5-14.5) H Platelet Count 187 x10^3/uL (140-400) Neutrophils (%) (Auto) 58 % (31-73) Lymphocytes (%) (Auto) 24 % (24-48) Monocytes (%) (Auto) 15 % (0-9) H Eosinophils (%) (Auto) 2 % (0-3) Basophils (%) (Auto) 1 % (0-3) Neutrophils # (Auto) 6.4 x10^3/uL (1.8-7.7) Lymphocytes # (Auto) 2.7 x10^3/uL (1.0-4.8) Monocytes # (Auto) 1.7 x10^3/uL (0.0-1.1) H Eosinophils # (Auto) 0.2 x10^3/uL (0.0-0.7) Basophils # (Auto) 0.1 x10^3/uL (0.0-0.2) Sodium Level 135 mmol/L (136-145) L Potassium Level 4.7 mmol/L (3.5-5.1) Chloride Level 97 mmol/L (98-107) L Carbon Dioxide Level 30 mmol/L (21-32) Anion Gap 8 (6-14) Blood Urea Nitrogen 57 mg/dL (8-26) H Creatinine 2.1 mg/dL (0.7-1.3) H Estimated GFR (Cockcroft-Gault) 32.1 Glucose Level 120 mg/dL (70-99) H Calcium Level 8.5 mg/dL (8.5-10.1) ASSESSMENT: 1. Aflutter with 2:1 conduction 2. 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 HTN 4. CKD PLAN: 1. continue metoprolol, amiodarone and digoxin. would like to avoid calcium channel blockers given his HF. 2. If still tachycardic today, then plan for CVN tomorrow, Keep NPO at midnight tonight. CHRISTY PERDOMO MD Feb 20, 2019 09:12
[2019-02-20] MEDS: AMIODARONE HCL 200 MG TABLET. PO SCH ×2 (09:13→21:00)
[2019-02-20] MEDS: ASPIRIN ENTERIC COATED 81 MG TABLET.DR. PO SCH (09:13)
[2019-02-20] MEDS ORDERED: AMIODARONE 900 MG in IV DEXTROSE 5% 500 ML IV PRN (09:15)
[2019-02-20] MEDS ORDERED: AMIODARONE 150 MG in IV DEXTROSE 5% 100ML 100 ML IV ONE (09:15)
--- NOTE | 2019-02-20 11:08 | PDOC ---
PROGRESS NOTES Chief Complaint Chief Complaint A/P: Afib with RVR - with Atrial flutter: paroxysmal, was sinus prior to d/c last visit on coreg, he has been taking this. Severe cardiomyopathy - EF 20-25% DONI - with his atrophied left kidney on prior CT and recent lisinopril exposure and hyperkalemia will stop his lisinopril and transition to imdur + hydralazine. Will get renal doppler given his large Cr bump with lisinopril administration Hyperkalemia - hold lisinopril, kayexelate Hypothyroidism - TSH 24 Smoker - counseled on cessation CAD - LAD stenting in 2017 COPD - with continued tobaccoism better Chronic diastolic/systolic CHF: EF 20-25% HTN - controlled HLD - goal LDL is < 70mg/dL Moderate size infrarenal AAA Recovering methamphetamine user (quit 3 weeks ago) GERD - tums prn FEN - Cardiac diet PPX - eliquis per cardiology recs FULL CODE Dispo - Inpatient for recurrent atrial arrhythmia, DONI, cardiomyopathy. History of Present Illness History of Present Illness Mr Herrera is a 63-year-old M w/ PMHx smoker, CAD, HTN, HLD, COPD, GERD, OA, recovering methamphetamine user (quit 3 weeks ago) with recent diagnosis of LL pneumonia and AFIB with RVR returns with afib with RVR and DONI with large bump in creatinine to 2.1, K of 5.8, as well as Hb 21. He is feeling worse than his prior hospital stay, unable to get up out of bed. He was also diagnosed with severe cardiomyopathy with EF 20-25% and hypothyroidism last stay with TSH of 24 and started on levothyroxine 100mcg daily as well as carvedilol and lisinopril. He also notes his significant other on 12/15/2018 and he has been grief stricken, has no one with whom to spend Thanksgiving. Renal doppler does not show left kidney blood flow. Cr improve to 2.1, Potassium normalized. He went into rapid afib overnight not responsive to digoxin or BB therapy, started on amiodarone GTT with better rate control. His SBP is in the low 90s. He feels very weak still. No CP. Mild SOB. Vitals Vitals Vital Signs Date Time Temp Pulse Resp B/P (MAP) Pulse Ox O2 Delivery O2 Flow Rate FiO2 11/28/19 10:00 130 90/54 (66) 96 Room Air 02/20/19 07:00 98.0 20 98.0 Physical Exam General: Alert, Oriented X3, Cooperative, mild distress Lungs: Clear, Other Abdomen: Normal bowel sounds, Soft, No tenderness, No hepatosplenomegaly, No masses Extremities: No clubbing, No cyanosis, No edema, Normal pulses, No tenderness/swelling Skin: No rashes, No breakdown, No significant lesion Labs LABS Laboratory Tests Test 02/19/19 11:40 02/19/19 12:35 02/19/19 17:35 02/19/19 21:00 Sodium Level 132 mmol/L (136-145) 132 mmol/L (136-145) Potassium Level 5.8 mmol/L (3.5-5.1) 5.6 mmol/L (3.5-5.1) Chloride Level 96 mmol/L (98-107) 96 mmol/L (98-107) Carbon Dioxide Level 33 mmol/L (21-32) 30 mmol/L (21-32) Anion Gap 3 (6-14) 6 (6-14) Blood Urea Nitrogen 47 mg/dL (8-26) 53 mg/dL (8-26) Creatinine 2.1 mg/dL (0.7-1.3) 2.3 mg/dL (0.7-1.3) Estimated GFR (Cockcroft-Gault) 32.1 28.9 Glucose Level 144 mg/dL (70-99) 154 mg/dL (70-99) Calcium Level 9.4 mg/dL (8.5-10.1) 9.2 mg/dL (8.5-10.1) Total Bilirubin 1.2 mg/dL (0.2-1.0) Direct Bilirubin 0.3 mg/dL (0.0-0.2) Aspartate Amino Transf (AST/SGOT) 34 U/L (15-37) Alanine Aminotransferase (ALT/SGPT) 80 U/L (16-63) Alkaline Phosphatase 65 U/L (46-116) Troponin I Quantitative < 0.017 ng/mL (0.000-0.055) < 0.017 ng/mL (0.000-0.055) DB-Ijg-P-Type Natriuretic Peptide 1258 pg/mL (0-124) Total Protein 6.6 g/dL (6.4-8.2) Albumin 3.2 g/dL (3.4-5.0) 3.1 g/dL (3.4-5.0) Lipase 201 U/L (73-393) Prothrombin Time 13.4 SEC (11.7-14.0) Prothromb Time International Ratio 1.1 (0.8-1.1) Activated Partial Thromboplast Time 25 SEC (24-38) D-Dimer (Deneen) 1.79 ug/mlFEU (0.00-0.50) White Blood Count 11.5 x10^3/uL (4.0-11.0) Red Blood Count 6.20 x10^6/uL (4.30-5.70) Hemoglobin 19.1 g/dL (13.0-17.5) Hematocrit 57.5 % (39.0-53.0) Mean Corpuscular Volume 93 fL (79-100) Mean Corpuscular Hemoglobin 31 pg (25-35) Mean Corpuscular Hemoglobin Concent 33 g/dL (31-37) Red Cell Distribution Width 15.9 % (11.5-14.5) Platelet Count 195 x10^3/uL (140-400) Neutrophils (%) (Auto) 64 % (31-73) Lymphocytes (%) (Auto) 19 % (24-48) Monocytes (%) (Auto) 16 % (0-9) Eosinophils (%) (Auto) 1 % (0-3) Basophils (%) (Auto) 1 % (0-3) Neutrophils # (Auto) 7.4 x10^3/uL (1.8-7.7) Lymphocytes # (Auto) 2.2 x10^3/uL (1.0-4.8) Monocytes # (Auto) 1.9 x10^3/uL (0.0-1.1) Eosinophils # (Auto) 0.1 x10^3/uL (0.0-0.7) Basophils # (Auto) 0.1 x10^3/uL (0.0-0.2) Segmented Neutrophils % 69 % (35-66) Lymphocytes % 12 % (24-48) Monocytes % 17 % (0-10) Eosinophils % 2 % (0-5) Platelet Estimate Adequate (ADEQUATE) Large Platelets Occ Anisocytosis Slight Phosphorus Level 4.3 mg/dL (2.6-4.7) Urine Opiates Screen Neg (NEG) Urine Methadone Screen Neg (NEG) Urine Barbiturates Neg (NEG) Urine Phencyclidine Screen Neg (NEG) Urine Amphetamine/Methamphetamine Neg (NEG) Urine Benzodiazepines Screen Neg (NEG) Urine Cocaine Screen Neg (NEG) Urine Cannabinoids Screen Neg (NEG) Urine Ethyl Alcohol Neg (NEG) Test 02/20/19 00:50 02/20/19 05:53 Troponin I Quantitative < 0.017 ng/mL (0.000-0.055) < 0.017 ng/mL (0.000-0.055) White Blood Count 11.1 x10^3/uL (4.0-11.0) Red Blood Count 6.16 x10^6/uL (4.30-5.70) Hemoglobin 19.3 g/dL (13.0-17.5) Hematocrit 57.3 % (39.0-53.0) Mean Corpuscular Volume 93 fL (79-100) Mean Corpuscular Hemoglobin 31 pg (25-35) Mean Corpuscular Hemoglobin Concent 34 g/dL (31-37) Red Cell Distribution Width 16.1 % (11.5-14.5) Platelet Count 187 x10^3/uL (140-400) Neutrophils (%) (Auto) 58 % (31-73) Lymphocytes (%) (Auto) 24 % (24-48) Monocytes (%) (Auto) 15 % (0-9) Eosinophils (%) (Auto) 2 % (0-3) Basophils (%) (Auto) 1 % (0-3) Neutrophils # (Auto) 6.4 x10^3/uL (1.8-7.7) Lymphocytes # (Auto) 2.7 x10^3/uL (1.0-4.8) Monocytes # (Auto) 1.7 x10^3/uL (0.0-1.1) Eosinophils # (Auto) 0.2 x10^3/uL (0.0-0.7) Basophils # (Auto) 0.1 x10^3/uL (0.0-0.2) Sodium Level 135 mmol/L (136-145) Potassium Level 4.7 mmol/L (3.5-5.1) Chloride Level 97 mmol/L (98-107) Carbon Dioxide Level 30 mmol/L (21-32) Anion Gap 8 (6-14) Blood Urea Nitrogen 57 mg/dL (8-26) Creatinine 2.1 mg/dL (0.7-1.3) Estimated GFR (Cockcroft-Gault) 32.1 Glucose Level 120 mg/dL (70-99) Calcium Level 8.5 mg/dL (8.5-10.1) Assessment and Plan Assessmemt and Plan Problems Medical Problems: (1) DONI (acute kidney injury) Status: Acute Comment Review of Relevant I have reviewed the following items hang (where applicable) has been applied. Labs Laboratory Tests Test 02/19/19 10:52 02/19/19 11:40 02/19/19 12:35 02/19/19 17:35 White Blood Count 10.6 x10^3/uL (4.0-11.0) 11.5 x10^3/uL (4.0-11.0) Red Blood Count 6.76 x10^6/uL (4.30-5.70) 6.20 x10^6/uL (4.30-5.70) Hemoglobin 21.2 g/dL (13.0-17.5) 19.1 g/dL (13.0-17.5) Hematocrit 63.4 % (39.0-53.0) 57.5 % (39.0-53.0) Mean Corpuscular Volume 94 fL (79-100) 93 fL (79-100) Mean Corpuscular Hemoglobin 31 pg (25-35) 31 pg (25-35) Mean Corpuscular Hemoglobin Concent 33 g/dL (31-37) 33 g/dL (31-37) Red Cell Distribution Width 16.1 % (11.5-14.5) 15.9 % (11.5-14.5) Platelet Count 209 x10^3/uL (140-400) 195 x10^3/uL (140-400) Neutrophils (%) (Auto) 70 % (31-73) 64 % (31-73) Lymphocytes (%) (Auto) 18 % (24-48) 19 % (24-48) Monocytes (%) (Auto) 11 % (0-9) 16 % (0-9) Eosinophils (%) (Auto) 1 % (0-3) 1 % (0-3) Basophils (%) (Auto) 0 % (0-3) 1 % (0-3) Neutrophils # (Auto) 7.4 x10^3/uL (1.8-7.7) 7.4 x10^3/uL (1.8-7.7) Lymphocytes # (Auto) 1.9 x10^3/uL (1.0-4.8) 2.2 x10^3/uL (1.0-4.8) Monocytes # (Auto) 1.2 x10^3/uL (0.0-1.1) 1.9 x10^3/uL (0.0-1.1) Eosinophils # (Auto) 0.1 x10^3/uL (0.0-0.7) 0.1 x10^3/uL (0.0-0.7) Basophils # (Auto) 0.0 x10^3/uL (0.0-0.2) 0.1 x10^3/uL (0.0-0.2) Sodium Level 132 mmol/L (136-145) 132 mmol/L (136-145) Potassium Level 5.8 mmol/L (3.5-5.1) 5.6 mmol/L (3.5-5.1) Chloride Level 96 mmol/L (98-107) 96 mmol/L (98-107) Carbon Dioxide Level 33 mmol/L (21-32) 30 mmol/L (21-32) Anion Gap 3 (6-14) 6 (6-14) Blood Urea Nitrogen 47 mg/dL (8-26) 53 mg/dL (8-26) Creatinine 2.1 mg/dL (0.7-1.3) 2.3 mg/dL (0.7-1.3) Estimated GFR (Cockcroft-Gault) 32.1 28.9 Glucose Level 144 mg/dL (70-99) 154 mg/dL (70-99) Calcium Level 9.4 mg/dL (8.5-10.1) 9.2 mg/dL (8.5-10.1) Total Bilirubin 1.2 mg/dL (0.2-1.0) Direct Bilirubin 0.3 mg/dL (0.0-0.2) Aspartate Amino Transf (AST/SGOT) 34 U/L (15-37) Alanine Aminotransferase (ALT/SGPT) 80 U/L (16-63) Alkaline Phosphatase 65 U/L (46-116) Troponin I Quantitative < 0.017 ng/mL (0.000-0.055) < 0.017 ng/mL (0.000-0.055) VO-Mpm-S-Type Natriuretic Peptide 1258 pg/mL (0-124) Total Protein 6.6 g/dL (6.4-8.2) Albumin 3.2 g/dL (3.4-5.0) 3.1 g/dL (3.4-5.0) Lipase 201 U/L (73-393) Prothrombin Time 13.4 SEC (11.7-14.0) Prothromb Time International Ratio 1.1 (0.8-1.1) Activated Partial Thromboplast Time 25 SEC (24-38) D-Dimer (Deneen) 1.79 ug/mlFEU (0.00-0.50) Segmented Neutrophils % 69 % (35-66) Lymphocytes % 12 % (24-48) Monocytes % 17 % (0-10) Eosinophils % 2 % (0-5) Platelet Estimate Adequate (ADEQUATE) Large Platelets Occ Anisocytosis Slight Phosphorus Level 4.3 mg/dL (2.6-4.7) Test 02/19/19 21:00 02/20/19 00:50 02/20/19 05:53 Urine Opiates Screen Neg (NEG) Urine Methadone Screen Neg (NEG) Urine Barbiturates Neg (NEG) Urine Phencyclidine Screen Neg (NEG) Urine Amphetamine/Methamphetamine Neg (NEG) Urine Benzodiazepines Screen Neg (NEG) Urine Cocaine Screen Neg (NEG) Urine Cannabinoids Screen Neg (NEG) Urine Ethyl Alcohol Neg (NEG) Troponin I Quantitative < 0.017 ng/mL (0.000-0.055) < 0.017 ng/mL (0.000-0.055) White Blood Count 11.1 x10^3/uL (4.0-11.0) Red Blood Count 6.16 x10^6/uL (4.30-5.70) Hemoglobin 19.3 g/dL (13.0-17.5) Hematocrit 57.3 % (39.0-53.0) Mean Corpuscular Volume 93 fL (79-100) Mean Corpuscular Hemoglobin 31 pg (25-35) Mean Corpuscular Hemoglobin Concent 34 g/dL (31-37) Red Cell Distribution Width 16.1 % (11.5-14.5) Platelet Count 187 x10^3/uL (140-400) Neutrophils (%) (Auto) 58 % (31-73) Lymphocytes (%) (Auto) 24 % (24-48) Monocytes (%) (Auto) 15 % (0-9) Eosinophils (%) (Auto) 2 % (0-3) Basophils (%) (Auto) 1 % (0-3) Neutrophils # (Auto) 6.4 x10^3/uL (1.8-7.7) Lymphocytes # (Auto) 2.7 x10^3/uL (1.0-4.8) Monocytes # (Auto) 1.7 x10^3/uL (0.0-1.1) Eosinophils # (Auto) 0.2 x10^3/uL (0.0-0.7) Basophils # (Auto) 0.1 x10^3/uL (0.0-0.2) Sodium Level 135 mmol/L (136-145) Potassium Level 4.7 mmol/L (3.5-5.1) Chloride Level 97 mmol/L (98-107) Carbon Dioxide Level 30 mmol/L (21-32) Anion Gap 8 (6-14) Blood Urea Nitrogen 57 mg/dL (8-26) Creatinine 2.1 mg/dL (0.7-1.3) Estimated GFR (Cockcroft-Gault) 32.1 Glucose Level 120 mg/dL (70-99) Calcium Level 8.5 mg/dL (8.5-10.1) Laboratory Tests Test 02/19/19 11:40 02/19/19 12:35 02/19/19 17:35 02/19/19 21:00 Sodium Level 132 mmol/L (136-145) 132 mmol/L (136-145) Potassium Level 5.8 mmol/L (3.5-5.1) 5.6 mmol/L (3.5-5.1) Chloride Level 96 mmol/L (98-107) 96 mmol/L (98-107) Carbon Dioxide Level 33 mmol/L (21-32) 30 mmol/L (21-32) Anion Gap 3 (6-14) 6 (6-14) Blood Urea Nitrogen 47 mg/dL (8-26) 53 mg/dL (8-26) Creatinine 2.1 mg/dL (0.7-1.3) 2.3 mg/dL (0.7-1.3) Estimated GFR (Cockcroft-Gault) 32.1 28.9 Glucose Level 144 mg/dL (70-99) 154 mg/dL (70-99) Calcium Level 9.4 mg/dL (8.5-10.1) 9.2 mg/dL (8.5-10.1) Total Bilirubin 1.2 mg/dL (0.2-1.0) Direct Bilirubin 0.3 mg/dL (0.0-0.2) Aspartate Amino Transf (AST/SGOT) 34 U/L (15-37) Alanine Aminotransferase (ALT/SGPT) 80 U/L (16-63) Alkaline Phosphatase 65 U/L (46-116) Troponin I Quantitative < 0.017 ng/mL (0.000-0.055) < 0.017 ng/mL (0.000-0.055) DJ-Bbg-T-Type Natriuretic Peptide 1258 pg/mL (0-124) Total Protein 6.6 g/dL (6.4-8.2) Albumin 3.2 g/dL (3.4-5.0) 3.1 g/dL (3.4-5.0) Lipase 201 U/L (73-393) Prothrombin Time 13.4 SEC (11.7-14.0) Prothromb Time International Ratio 1.1 (0.8-1.1) Activated Partial Thromboplast Time 25 SEC (24-38) D-Dimer (Deneen) 1.79 ug/mlFEU (0.00-0.50) White Blood Count 11.5 x10^3/uL (4.0-11.0) Red Blood Count 6.20 x10^6/uL (4.30-5.70) Hemoglobin 19.1 g/dL (13.0-17.5) Hematocrit 57.5 % (39.0-53.0) Mean Corpuscular Volume 93 fL (79-100) Mean Corpuscular Hemoglobin 31 pg (25-35) Mean Corpuscular Hemoglobin Concent 33 g/dL (31-37) Red Cell Distribution Width 15.9 % (11.5-14.5) Platelet Count 195 x10^3/uL (140-400) Neutrophils (%) (Auto) 64 % (31-73) Lymphocytes (%) (Auto) 19 % (24-48) Monocytes (%) (Auto) 16 % (0-9) Eosinophils (%) (Auto) 1 % (0-3) Basophils (%) (Auto) 1 % (0-3) Neutrophils # (Auto) 7.4 x10^3/uL (1.8-7.7) Lymphocytes # (Auto) 2.2 x10^3/uL (1.0-4.8) Monocytes # (Auto) 1.9 x10^3/uL (0.0-1.1) Eosinophils # (Auto) 0.1 x10^3/uL (0.0-0.7) Basophils # (Auto) 0.1 x10^3/uL (0.0-0.2) Segmented Neutrophils % 69 % (35-66) Lymphocytes % 12 % (24-48) Monocytes % 17 % (0-10) Eosinophils % 2 % (0-5) Platelet Estimate Adequate (ADEQUATE) Large Platelets Occ Anisocytosis Slight Phosphorus Level 4.3 mg/dL (2.6-4.7) Urine Opiates Screen Neg (NEG) Urine Methadone Screen Neg (NEG) Urine Barbiturates Neg (NEG) Urine Phencyclidine Screen Neg (NEG) Urine Amphetamine/Methamphetamine Neg (NEG) Urine Benzodiazepines Screen Neg (NEG) Urine Cocaine Screen Neg (NEG) Urine Cannabinoids Screen Neg (NEG) Urine Ethyl Alcohol Neg (NEG) Test 02/20/19 00:50 02/20/19 05:53 Troponin I Quantitative < 0.017 ng/mL (0.000-0.055) < 0.017 ng/mL (0.000-0.055) White Blood Count 11.1 x10^3/uL (4.0-11.0) Red Blood Count 6.16 x10^6/uL (4.30-5.70) Hemoglobin 19.3 g/dL (13.0-17.5) Hematocrit 57.3 % (39.0-53.0) Mean Corpuscular Volume 93 fL (79-100) Mean Corpuscular Hemoglobin 31 pg (25-35) Mean Corpuscular Hemoglobin Concent 34 g/dL (31-37) Red Cell Distribution Width 16.1 % (11.5-14.5) Platelet Count 187 x10^3/uL (140-400) Neutrophils (%) (Auto) 58 % (31-73) Lymphocytes (%) (Auto) 24 % (24-48) Monocytes (%) (Auto) 15 % (0-9) Eosinophils (%) (Auto) 2 % (0-3) Basophils (%) (Auto) 1 % (0-3) Neutrophils # (Auto) 6.4 x10^3/uL (1.8-7.7) Lymphocytes # (Auto) 2.7 x10^3/uL (1.0-4.8) Monocytes # (Auto) 1.7 x10^3/uL (0.0-1.1) Eosinophils # (Auto) 0.2 x10^3/uL (0.0-0.7) Basophils # (Auto) 0.1 x10^3/uL (0.0-0.2) Sodium Level 135 mmol/L (136-145) Potassium Level 4.7 mmol/L (3.5-5.1) Chloride Level 97 mmol/L (98-107) Carbon Dioxide Level 30 mmol/L (21-32) Anion Gap 8 (6-14) Blood Urea Nitrogen 57 mg/dL (8-26) Creatinine 2.1 mg/dL (0.7-1.3) Estimated GFR (Cockcroft-Gault) 32.1 Glucose Level 120 mg/dL (70-99) Calcium Level 8.5 mg/dL (8.5-10.1) Medications Current Medications Diltiazem HCl (Cardizem Iv Push) 10 mg 1X ONCE IVP Last administered on 02/19/19at 11:15; Start 02/19/19 at 11:00; Stop 02/19/19 at 11:01; Status DC Diltiazem HCl 125 mg/Dextrose 125 ml @ 5 mls/hr 1X ONCE IV Last administered on 02/19/19at 11:16; Start 02/19/19 at 11:00; Stop 02/20/19 at 11:59 Ondansetron HCl (Zofran) 4 mg PRN Q8HRS PRN IV NAUSEA/VOMITING; Start 02/19/19 at 12:45; Stop 02/20/19 at 12:44 Morphine Sulfate (Morphine Sulfate) 2 mg PRN Q2HR PRN IV PAIN; Start 02/19/19 at 12:45; Stop 02/20/19 at 12:44 Metoprolol Tartrate (Lopressor) 25 mg Q6HRS PO ; Start 02/19/19 at 18:00; Stop 02/19/19 at 14:13; Status DC Amiodarone HCl (Cordarone) 400 mg BID PO Last administered on 02/20/19at 09:13; Start 02/19/19 at 21:00 Apixaban (Eliquis) 5 mg BID PO Last administered on 02/20/19at 09:12; Start 02/19/19 at 21:00 Metoprolol Tartrate (Lopressor Vial) 5 mg PRN Q5MIN PRN IVP TACHYCARDIA Last administered on 02/20/19at 03:50; Start 02/19/19 at 13:45 Metoprolol Tartrate (Lopressor) 25 mg Q6HRS PO ; Start 02/19/19 at 14:30; Stop 02/19/19 at 14:49; Status DC Aspirin (Ecotrin) 81 mg DAILY PO Last administered on 02/20/19at 09:13; Start 02/20/19 at 09:00 Atorvastatin Calcium (Lipitor) 20 mg QHS PO Last administered on 02/19/19at 20:51; Start 02/19/19 at 21:00 Famotidine (Pepcid) 20 mg DAILY PO Last administered on 02/20/19at 09:12; Start 02/20/19 at 09:00 Levothyroxine Sodium (Synthroid) 100 mcg DAILYAC PO Last administered on 02/20/19at 06:12; Start 02/20/19 at 07:30 Nicotine (Nicoderm Cq 21mg) 1 patch PRN DAILY PRN TD SMOKING CESSATION; Start 02/19/19 at 09:00 Isosorbide Mononitrate (Imdur) 30 mg DAILY PO ; Start 02/19/19 at 14:45 Hydralazine HCl (Apresoline) 10 mg TID PO Last administered on 02/19/19at 20:52; Start 02/19/19 at 14:45 Metoprolol Tartrate (Lopressor) 25 mg ONCE ONCE PO Last administered on 02/19/19at 15:14; Start 02/19/19 at 14:45; Stop 02/19/19 at 14:50; Status DC Carvedilol (Coreg) 6.25 mg BIDWMEALS PO ; Start 02/19/19 at 17:00; Stop 02/19/19 at 16:24; Status DC Metoprolol Tartrate (Lopressor) 25 mg Q6HRS PO Last administered on 02/20/19at 06:12; Start 02/19/19 at 18:00 Temazepam (Restoril) 15 mg PRN QHS PRN PO INSOMNIA Last administered on 02/19/19at 22:56; Start 02/19/19 at 22:00 Digoxin (Lanoxin) 500 mcg 1X ONCE IV Last administered on 02/20/19at 05:57; Start 02/20/19 at 06:00; Stop 02/20/19 at 06:01; Status DC Amiodarone HCl 150 mg/Dextrose 103 ml @ 618 mls/hr 1X ONCE IV Last administered on 02/20/19at 09:29; Start 02/20/19 at 09:15; Stop 02/20/19 at 09:24; Status DC Amiodarone HCl 900 mg/Dextrose 518 ml @ 0 mls/hr CONT PRN IV SEE I/O RECORD Last administered on 02/20/19at 09:36; Start 02/20/19 at 09:15; Stop 02/20/19 at 09:36; Status DC Active Scripts Active Aspirin Ec (Aspirin) 81 Mg Tablet. 1 Tab PO DAILY Lasix (Furosemide) 20 Mg Tablet 1 Tab PO DAILY 30 Days Coreg (Carvedilol) 6.25 Mg Tablet 6.25 Mg PO BIDWMEALS 30 Days Lisinopril 5 Mg Tablet 1 Tab PO DAILY MDD 30 Percocet 5-325 Mg Tablet (Oxycodone/Acetaminophen) 1 Each Tablet 1 Tab PO PRN Q4HRS PRN Atorvastatin Calcium 20 Mg Tablet 20 Mg PO QHS [Nicotine 21MG] 1 PATCH Patch 1 Patch TD PRN DAILY PRN Doxycycline Hyclate 100 Mg Tablet 100 Mg PO BID Clopidogrel (Clopidogrel Bisulfate) 75 Mg Tablet 75 Mg PO DAILY Reported Medrol (Methylprednisolone) 4 Mg Tab.ds.pk 4 Mg PO DAILY Synthroid (Levothyroxine Sodium) 100 Mcg Tablet 100 Mcg PO DAILYAC Pepcid (Famotidine) 20 Mg Tablet 20 Mg PO BID Vitals/I & O Vital Sign - Last 24 Hours 02/19/19 02/19/19 02/19/19 02/19/19 11:13 11:15 11:17 11:19 Pulse 148 152 146 142 Resp 19 B/P (MAP) 117/59 (78) 117/59 108/59 (75) 101/73 (82) Pulse Ox 95 95 94 O2 Delivery Room Air Room Air Room Air 02/19/19 02/19/19 02/19/19 02/19/19 11:34 11:49 12:04 12:19 Pulse 122 118 118 114 Resp B/P (MAP) 96/73 (81) 97/70 (79) 97/61 (73) 98/72 (81) Pulse Ox 94 93 94 94 O2 Delivery Room Air Room Air Room Air Room Air 02/19/19 02/19/19 02/19/19 02/19/19 12:22 12:34 12:50 14:30 Temp 97.4 97.4 Pulse 116 112 105 Resp 18 B/P (MAP) 85/65 (72) 100/65 (77) 96/61 (73) Pulse Ox 94 96 94 O2 Delivery Room Air Room Air Room Air Room Air 02/19/19 02/19/19 02/19/19 02/19/19 15:00 15:14 15:15 17:24 Temp 98.0 98.0 98.0 98.0 Pulse 97 105 97 100 Resp 16 B/P (MAP) 107/55 (72) 107/55 (72) 107/55 Pulse Ox 16 94 O2 Delivery Nasal Cannula Room Air 02/19/19 02/19/19 02/19/19 02/19/19 19:00 20:00 20:08 20:15 Temp 98.1 98.1 Pulse 144 144 144 Resp 20 B/P (MAP) 147/107 (120) 147/107 115/80 (92) Pulse Ox 94 95 O2 Delivery Room Air Room Air Room Air 02/19/19 02/19/19 02/19/19 02/19/19 20:52 20:52 22:56 23:20 Temp 97.6 97.6 Pulse 145 145 147 145 Resp 18 B/P (MAP) 115/80 115/80 115/80 90/57 (68) Pulse Ox 94 O2 Delivery Room Air 02/20/19 02/20/19 02/20/19 02/20/19 01:24 01:26 03:00 03:50 Temp 97.2 97.2 Pulse 140 136 146 146 Resp 20 B/P (MAP) 98/45 98/45 (62) 97/58 (71) 97/58 Pulse Ox 91 93 O2 Delivery Room Air 02/20/19 02/20/19 02/20/19 02/20/19 05:57 06:12 07:00 07:40 Temp 98.0 98.0 Pulse 149 149 144 Resp 20 B/P (MAP) 114/71 114/71 114/71 (85) Pulse Ox 94 O2 Delivery Room Air Room Air 02/20/19 02/20/19 02/20/19 09:13 09:29 10:00 Pulse 144 144 130 B/P (MAP) 114/71 114/71 90/54 (66) Pulse Ox 96 O2 Delivery Room Air Intake and Output 02/19/19 02/19/19 02/20/19 15:00 23:00 07:00 Intake Total 2500 ml Output Total 301 ml Balance 2199 ml DONNA CLINE MD Feb 20, 2019 11:08
[2019-02-20] MEDS: ATORVASTATIN CALCIUM 20 MG TABLET PO SCH (21:06)
[2019-02-21] VITALS (14 sets, daily range): BP systolic 90–162; BP diastolic 64–100
[2019-02-21] MEDS: METOPROLOL TART IMMED RELEASE 25 MG TABLET. PO SCH ×4 (01:40→21:29)
[2019-02-21] MEDS: LEVOTHYROXINE 100 MCG TABLET PO SCH (06:45)
--- NOTE | 2019-02-21 07:55 | PDOC ---
PROGRESS NOTES Chief Complaint Chief Complaint A/P: Afib with RVR - with Atrial flutter: paroxysmal, was sinus prior to d/c last visit on coreg, he has been taking this. Severe cardiomyopathy - EF 20-25% DONI - with his atrophied left kidney on prior CT and recent lisinopril exposure and hyperkalemia will stop his lisinopril and transition to imdur + hydralazine. Will get renal doppler given his large Cr bump with lisinopril administration Hyperkalemia - hold lisinopril, kayexelate Hypothyroidism - TSH 24 Smoker - counseled on cessation CAD - LAD stenting in 2017 COPD - with continued tobaccoism better Chronic diastolic/systolic CHF: EF 20-25% HTN - controlled HLD - goal LDL is < 70mg/dL Moderate size infrarenal AAA Recovering methamphetamine user (quit 3 weeks ago) GERD - tums prn FEN - Cardiac diet PPX - eliquis per cardiology recs FULL CODE Dispo - Inpatient for recurrent atrial arrhythmia, DONI, cardiomyopathy. History of Present Illness History of Present Illness Mr Herrera is a 63-year-old M w/ PMHx smoker, CAD, HTN, HLD, COPD, GERD, OA, recovering methamphetamine user (quit 3 weeks ago) with recent diagnosis of LL pneumonia and AFIB with RVR returns with afib with RVR and DONI with large bump in creatinine to 2.1, K of 5.8, as well as Hb 21. He is feeling worse than his prior hospital stay, unable to get up out of bed. He was also diagnosed with severe cardiomyopathy with EF 20-25% and hypothyroidism last stay with TSH of 24 and started on levothyroxine 100mcg daily as well as carvedilol and lisinopril. He also notes his significant other on 12/15/2018 and he has been grief stricken, has no one with whom to spend Thanksgiving. Renal doppler does not show left kidney blood flow. 02/21: Cr improve to 2.1, Potassium normalized. He went into rapid afib overnight not responsive to digoxin or BB therapy, started on amiodarone GTT with better rate control. His SBP is in the low 90s. He feels very weak still. No CP. Mild SOB. Cardioverted successfully. Feeling improved, but still short of breath. He is very dejected today, states he was motivated last time he was discharged, but having no loved ones to spend the holidays with has made him tearful and he is upset that he has no apparent function of his left kidney. Vitals Vitals Vital Signs Date Time Temp Pulse Resp B/P (MAP) Pulse Ox O2 Delivery O2 Flow Rate FiO2 02/21/19 06:53 98.1 106 16 108/64 (79) 99 Room Air 98.1 Physical Exam General: Alert, Oriented X3, Cooperative, mild distress Lungs: Clear, Other Abdomen: Normal bowel sounds, Soft, No tenderness, No hepatosplenomegaly, No masses Extremities: No clubbing, No cyanosis, No edema, Normal pulses, No tenderness/swelling Skin: No rashes, No breakdown, No significant lesion Assessment and Plan Assessmemt and Plan Problems Medical Problems: (1) DONI (acute kidney injury) Status: Acute Comment Review of Relevant I have reviewed the following items hang (where applicable) has been applied. Labs Laboratory Tests Test 02/19/19 10:52 02/19/19 11:40 02/19/19 12:35 02/19/19 17:35 White Blood Count 10.6 x10^3/uL (4.0-11.0) 11.5 x10^3/uL (4.0-11.0) Red Blood Count 6.76 x10^6/uL (4.30-5.70) 6.20 x10^6/uL (4.30-5.70) Hemoglobin 21.2 g/dL (13.0-17.5) 19.1 g/dL (13.0-17.5) Hematocrit 63.4 % (39.0-53.0) 57.5 % (39.0-53.0) Mean Corpuscular Volume 94 fL (79-100) 93 fL (79-100) Mean Corpuscular Hemoglobin 31 pg (25-35) 31 pg (25-35) Mean Corpuscular Hemoglobin Concent 33 g/dL (31-37) 33 g/dL (31-37) Red Cell Distribution Width 16.1 % (11.5-14.5) 15.9 % (11.5-14.5) Platelet Count 209 x10^3/uL (140-400) 195 x10^3/uL (140-400) Neutrophils (%) (Auto) 70 % (31-73) 64 % (31-73) Lymphocytes (%) (Auto) 18 % (24-48) 19 % (24-48) Monocytes (%) (Auto) 11 % (0-9) 16 % (0-9) Eosinophils (%) (Auto) 1 % (0-3) 1 % (0-3) Basophils (%) (Auto) 0 % (0-3) 1 % (0-3) Neutrophils # (Auto) 7.4 x10^3/uL (1.8-7.7) 7.4 x10^3/uL (1.8-7.7) Lymphocytes # (Auto) 1.9 x10^3/uL (1.0-4.8) 2.2 x10^3/uL (1.0-4.8) Monocytes # (Auto) 1.2 x10^3/uL (0.0-1.1) 1.9 x10^3/uL (0.0-1.1) Eosinophils # (Auto) 0.1 x10^3/uL (0.0-0.7) 0.1 x10^3/uL (0.0-0.7) Basophils # (Auto) 0.0 x10^3/uL (0.0-0.2) 0.1 x10^3/uL (0.0-0.2) Sodium Level 132 mmol/L (136-145) 132 mmol/L (136-145) Potassium Level 5.8 mmol/L (3.5-5.1) 5.6 mmol/L (3.5-5.1) Chloride Level 96 mmol/L (98-107) 96 mmol/L (98-107) Carbon Dioxide Level 33 mmol/L (21-32) 30 mmol/L (21-32) Anion Gap 3 (6-14) 6 (6-14) Blood Urea Nitrogen 47 mg/dL (8-26) 53 mg/dL (8-26) Creatinine 2.1 mg/dL (0.7-1.3) 2.3 mg/dL (0.7-1.3) Estimated GFR (Cockcroft-Gault) 32.1 28.9 Glucose Level 144 mg/dL (70-99) 154 mg/dL (70-99) Calcium Level 9.4 mg/dL (8.5-10.1) 9.2 mg/dL (8.5-10.1) Total Bilirubin 1.2 mg/dL (0.2-1.0) Direct Bilirubin 0.3 mg/dL (0.0-0.2) Aspartate Amino Transf (AST/SGOT) 34 U/L (15-37) Alanine Aminotransferase (ALT/SGPT) 80 U/L (16-63) Alkaline Phosphatase 65 U/L (46-116) Troponin I Quantitative < 0.017 ng/mL (0.000-0.055) < 0.017 ng/mL (0.000-0.055) OC-Wuo-H-Type Natriuretic Peptide 1258 pg/mL (0-124) Total Protein 6.6 g/dL (6.4-8.2) Albumin 3.2 g/dL (3.4-5.0) 3.1 g/dL (3.4-5.0) Lipase 201 U/L (73-393) Prothrombin Time 13.4 SEC (11.7-14.0) Prothromb Time International Ratio 1.1 (0.8-1.1) Activated Partial Thromboplast Time 25 SEC (24-38) D-Dimer (Deneen) 1.79 ug/mlFEU (0.00-0.50) Segmented Neutrophils % 69 % (35-66) Lymphocytes % 12 % (24-48) Monocytes % 17 % (0-10) Eosinophils % 2 % (0-5) Platelet Estimate Adequate (ADEQUATE) Large Platelets Occ Anisocytosis Slight Phosphorus Level 4.3 mg/dL (2.6-4.7) Test 02/19/19 21:00 02/20/19 00:50 02/20/19 05:53 Urine Opiates Screen Neg (NEG) Urine Methadone Screen Neg (NEG) Urine Barbiturates Neg (NEG) Urine Phencyclidine Screen Neg (NEG) Urine Amphetamine/Methamphetamine Neg (NEG) Urine Benzodiazepines Screen Neg (NEG) Urine Cocaine Screen Neg (NEG) Urine Cannabinoids Screen Neg (NEG) Urine Ethyl Alcohol Neg (NEG) Troponin I Quantitative < 0.017 ng/mL (0.000-0.055) < 0.017 ng/mL (0.000-0.055) White Blood Count 11.1 x10^3/uL (4.0-11.0) Red Blood Count 6.16 x10^6/uL (4.30-5.70) Hemoglobin 19.3 g/dL (13.0-17.5) Hematocrit 57.3 % (39.0-53.0) Mean Corpuscular Volume 93 fL (79-100) Mean Corpuscular Hemoglobin 31 pg (25-35) Mean Corpuscular Hemoglobin Concent 34 g/dL (31-37) Red Cell Distribution Width 16.1 % (11.5-14.5) Platelet Count 187 x10^3/uL (140-400) Neutrophils (%) (Auto) 58 % (31-73) Lymphocytes (%) (Auto) 24 % (24-48) Monocytes (%) (Auto) 15 % (0-9) Eosinophils (%) (Auto) 2 % (0-3) Basophils (%) (Auto) 1 % (0-3) Neutrophils # (Auto) 6.4 x10^3/uL (1.8-7.7) Lymphocytes # (Auto) 2.7 x10^3/uL (1.0-4.8) Monocytes # (Auto) 1.7 x10^3/uL (0.0-1.1) Eosinophils # (Auto) 0.2 x10^3/uL (0.0-0.7) Basophils # (Auto) 0.1 x10^3/uL (0.0-0.2) Sodium Level 135 mmol/L (136-145) Potassium Level 4.7 mmol/L (3.5-5.1) Chloride Level 97 mmol/L (98-107) Carbon Dioxide Level 30 mmol/L (21-32) Anion Gap 8 (6-14) Blood Urea Nitrogen 57 mg/dL (8-26) Creatinine 2.1 mg/dL (0.7-1.3) Estimated GFR (Cockcroft-Gault) 32.1 Glucose Level 120 mg/dL (70-99) Calcium Level 8.5 mg/dL (8.5-10.1) Medications Current Medications Diltiazem HCl (Cardizem Iv Push) 10 mg 1X ONCE IVP Last administered on 02/19/19at 11:15; Start 02/19/19 at 11:00; Stop 02/19/19 at 11:01; Status DC Diltiazem HCl 125 mg/Dextrose 125 ml @ 5 mls/hr 1X ONCE IV Last administered on 02/19/19at 11:16; Start 02/19/19 at 11:00; Stop 02/20/19 at 11:59; Status DC Ondansetron HCl (Zofran) 4 mg PRN Q8HRS PRN IV NAUSEA/VOMITING; Start 02/19/19 at 12:45; Stop 02/20/19 at 12:44; Status DC Morphine Sulfate (Morphine Sulfate) 2 mg PRN Q2HR PRN IV PAIN; Start 02/19/19 at 12:45; Stop 02/20/19 at 12:44; Status DC Metoprolol Tartrate (Lopressor) 25 mg Q6HRS PO ; Start 02/19/19 at 18:00; Stop 02/19/19 at 14:13; Status DC Amiodarone HCl (Cordarone) 400 mg BID PO Last administered on 02/20/19at 09:13; Start 02/19/19 at 21:00 Apixaban (Eliquis) 5 mg BID PO Last administered on 02/20/19at 21:06; Start 02/19/19 at 21:00 Metoprolol Tartrate (Lopressor Vial) 5 mg PRN Q5MIN PRN IVP TACHYCARDIA Last administered on 02/20/19at 03:50; Start 02/19/19 at 13:45 Metoprolol Tartrate (Lopressor) 25 mg Q6HRS PO ; Start 02/19/19 at 14:30; Stop 02/19/19 at 14:49; Status DC Aspirin (Ecotrin) 81 mg DAILY PO Last administered on 02/20/19at 09:13; Start 02/20/19 at 09:00 Atorvastatin Calcium (Lipitor) 20 mg QHS PO Last administered on 02/20/19at 21:06; Start 02/19/19 at 21:00 Famotidine (Pepcid) 20 mg DAILY PO Last administered on 02/20/19at 09:12; Start 02/20/19 at 09:00 Levothyroxine Sodium (Synthroid) 100 mcg DAILYAC PO Last administered on 02/21/19at 06:45; Start 02/20/19 at 07:30 Nicotine (Nicoderm Cq 21mg) 1 patch PRN DAILY PRN TD SMOKING CESSATION; Start 02/19/19 at 09:00 Isosorbide Mononitrate (Imdur) 30 mg DAILY PO ; Start 02/19/19 at 14:45 Hydralazine HCl (Apresoline) 10 mg TID PO Last administered on 02/19/19at 20:52; Start 02/19/19 at 14:45 Metoprolol Tartrate (Lopressor) 25 mg ONCE ONCE PO Last administered on 02/19/19at 15:14; Start 02/19/19 at 14:45; Stop 02/19/19 at 14:50; Status DC Carvedilol (Coreg) 6.25 mg BIDWMEALS PO ; Start 02/19/19 at 17:00; Stop 02/19/19 at 16:24; Status DC Metoprolol Tartrate (Lopressor) 25 mg Q6HRS PO Last administered on 02/21/19at 01:40; Start 02/19/19 at 18:00 Temazepam (Restoril) 15 mg PRN QHS PRN PO INSOMNIA Last administered on 02/19/19at 22:56; Start 02/19/19 at 22:00 Digoxin (Lanoxin) 500 mcg 1X ONCE IV Last administered on 02/20/19at 05:57; Start 02/20/19 at 06:00; Stop 02/20/19 at 06:01; Status DC Amiodarone HCl 150 mg/Dextrose 103 ml @ 618 mls/hr 1X ONCE IV Last administered on 02/20/19at 09:29; Start 02/20/19 at 09:15; Stop 02/20/19 at 09:24; Status DC Amiodarone HCl 900 mg/Dextrose 518 ml @ 0 mls/hr CONT PRN IV SEE I/O RECORD Last administered on 02/20/19at 09:36; Start 02/20/19 at 09:15; Stop 02/20/19 at 09:36; Status DC Active Scripts Active Aspirin Ec (Aspirin) 81 Mg Tablet. 1 Tab PO DAILY Lasix (Furosemide) 20 Mg Tablet 1 Tab PO DAILY 30 Days Coreg (Carvedilol) 6.25 Mg Tablet 6.25 Mg PO BIDWMEALS 30 Days Lisinopril 5 Mg Tablet 1 Tab PO DAILY MDD 30 Percocet 5-325 Mg Tablet (Oxycodone/Acetaminophen) 1 Each Tablet 1 Tab PO PRN Q4HRS PRN Atorvastatin Calcium 20 Mg Tablet 20 Mg PO QHS [Nicotine 21MG] 1 PATCH Patch 1 Patch TD PRN DAILY PRN Doxycycline Hyclate 100 Mg Tablet 100 Mg PO BID Clopidogrel (Clopidogrel Bisulfate) 75 Mg Tablet 75 Mg PO DAILY Reported Medrol (Methylprednisolone) 4 Mg Tab.ds.pk 4 Mg PO DAILY Synthroid (Levothyroxine Sodium) 100 Mcg Tablet 100 Mcg PO DAILYAC Pepcid (Famotidine) 20 Mg Tablet 20 Mg PO BID Vitals/I & O Vital Sign - Last 24 Hours 02/20/19 02/20/19 02/20/19 02/20/19 09:13 09:29 10:00 11:00 Pulse 144 144 130 88 B/P (MAP) 114/71 114/71 90/54 (66) 86/54 (65) Pulse Ox 96 93 O2 Delivery Room Air Room Air 02/20/19 02/20/19 02/20/19 02/20/19 12:00 12:00 13:00 14:00 Pulse 84 78 81 81 B/P (MAP) 86/54 105/59 (74) 88/56 (67) 88/56 Pulse Ox 95 O2 Delivery Room Air 02/20/19 02/20/19 02/20/19 02/20/19 15:00 16:00 17:04 18:00 Temp 96.8 96.8 Pulse 90 77 73 85 Resp 18 B/P (MAP) 116/68 (84) 116/77 (90) 105/58 (74) 100/61 Pulse Ox 90 O2 Delivery Room Air 02/20/19 02/20/19 02/20/19 02/20/19 18:00 18:45 19:30 20:00 Temp 98.0 98.0 Pulse 85 88 98 Resp 16 B/P (MAP) 100/61 (74) 104/74 (84) 98/65 (76) Pulse Ox 92 O2 Delivery Room Air Room Air 02/20/19 02/20/19 02/20/19 02/20/19 21:00 21:00 21:00 22:06 Temp 98.1 98.1 Pulse 82 88 112 95 Resp 16 B/P (MAP) 98/66 104/74 98/66 (77) 135/78 (97) Pulse Ox 98 O2 Delivery Room Air 02/20/19 02/21/19 02/21/19 02/21/19 22:06 00:00 01:00 01:40 Pulse 97 78 108 95 B/P (MAP) 135/74 (94) 111/81 (91) 105/74 (84) 135/78 02/21/19 02/21/19 02/21/19 02/21/19 02:00 03:01 06:00 06:53 Temp 97.8 98.1 97.8 98.1 Pulse 92 81 81 106 Resp 16 16 B/P (MAP) 118/66 (83) 90/66 (74) 90/66 108/64 (79) Pulse Ox 100 99 O2 Delivery Room Air Room Air Intake and Output 02/20/19 02/20/19 02/21/19 15:00 23:00 07:00 Intake Total 850 ml 394 ml 400 ml Output Total 375 ml 700 ml 175 ml Balance 475 ml -306 ml 225 ml DONNA CLINE MD Feb 21, 2019 07:55
[2019-02-21] MEDS: hydrALAZINE 10 MG TABLET PO SCH ×3 (09:00→21:29)
[2019-02-21] MEDS: ASPIRIN ENTERIC COATED 81 MG TABLET.DR. PO SCH (09:00)
[2019-02-21] MEDS: AMIODARONE HCL 200 MG TABLET. PO SCH (09:47)
[2019-02-21] MEDS: APIXABAN 5 MG TABLET. PO SCH ×2 (10:00→21:29)
[2019-02-21] MEDS: FAMOTIDINE 20 MG TABLET. PO SCH (10:00)
[2019-02-21] MEDS ORDERED: IV RINGERS,LACTATED 1000ML 1,000 ML IV SCH (10:08)
[2019-02-21] MEDS ORDERED: fentaNYL PF VIAL 100 MCG/2 ML VIAL IV PRN ×2 (10:15)
[2019-02-21] MEDS ORDERED: ONDANSETRON PF 4 MG/2 ML VIAL. IV PRN (10:15)
[2019-02-21] MEDS ORDERED: MORPHINE SULFATE 2 MG/ML VIAL. IV PRN (10:15)
[2019-02-21] MEDS ORDERED: HYDROmorphone 2 MG/ML VIAL IV PRN (10:15)
[2019-02-21] MEDS ORDERED: PROCHLORPERAZINE 10 MG/2 ML VIAL. IV PRN (10:15)
[2019-02-21 10:41] LABS: BASO # 0.1 x10^3/uL (0.0-0.2); BASO % 1 % (0-3); EOS # 0.2 x10^3/uL (0.0-0.7); EOS % 2 % (0-3); HEMATOCRIT 55.4 % (39.0-53.0); HEMOGLOBIN 18.4 g/dL (13.0-17.5); LYMPH # 2.4 x10^3/uL (1.0-4.8); LYMPH % 23 % (24-48); MEAN CORPUSCULAR HEMOGLOBIN 31 pg (25-35); MEAN CORPUSCULAR HGB CONC 33 g/dL (31-37); MEAN CORPUSCULAR VOLUME 93 fL (79-100); MONO # 1.4 x10^3/uL (0.0-1.1); MONO % 13 % (0-9); NEUT # 6.6 x10^3/uL (1.8-7.7); NEUT % 62 % (31-73); PLATELET COUNT 146 x10^3/uL (140-400); RED BLOOD COUNT 5.93 x10^6/uL (4.30-5.70); RED CELL DISTRIBUTION WIDTH 16.5 % (11.5-14.5); WHITE BLOOD COUNT 10.8 x10^3/uL (4.0-11.0)
[2019-02-21 10:50] LABS: CALCIUM 8.3 mg/dL (8.5-10.1); CREATININE 1.7 mg/dL (0.7-1.3); GFR 40.9
[2019-02-21] MEDS ORDERED: BENZOCAINE ONE 20% MUCOSAL SPRAY. (10:57)
[2019-02-21] MEDS ORDERED: BENZOCAINE ONE 20% MUCOSAL SPRAY. MM (11:00)
[2019-02-21] MEDS ORDERED: LIDOCAINE 2% VISCOUS 15 ML SOLUTION. SWSW ONE (11:00)
[2019-02-21] MEDS ORDERED: LIDOCAINE 2% TOPICAL JELLY 30GM TUBE. TP ONE ×2 (11:12→11:15)
[2019-02-21] MEDS ORDERED: PROPOFOL 40 ML IV ONE (11:30)
[2019-02-21] MEDS ORDERED: PHENYLEPHRINE in 0.9% NACL PF 1 MG/10 ML SYRINGE. IV ONE (12:00)
[2019-02-21] MEDS ORDERED: GLYCOPYRROLATE 1 MG/5 ML SYRINGE. ONE (12:00)
[2019-02-21] MEDS ORDERED: NEOSTIGMINE METHYLSULFATE 5 MG/5 ML SYRINGE. ONE (12:00)
--- NOTE | 2019-02-21 12:18 | PDOC ---
Provider Note Provider Note Pt. underwent successful CVN to SR. MYRON prelim with EF of 15-20%, severe biventricular failure Continue metoprolol, amiodarone and eliquis therapy Will consider entresto or lisinopril tmrw. Thanks. CHRSITY PERDOMO MD Feb 21, 2019 12:18
--- NOTE | 2019-02-21 12:50 | CARD ---
MR#: [id number] Date of Study: 02/21/2019 Ordering Physician: CHRISTY PERDOMO, Referring Physician: CHRISTY PERDOMO Tech: Rosie Godwin RDCS APPROVED REPORT EXAM: Transesophageal echocardiogram with color flow Doppler and Synchronized Cardioversion. INDICATION Atrial Fibrillation Reason For Test : Rule out Intracardiac Thrombus. PROCEDURE After obtaining informed consent, patient underwent transesophageal echo in the PACU. Type of Sedation : General Anesthesia Sedation was administered by Marcela Dumont CRNA. Sedation was achieved with Propofol 50 mg intravenously. Transesophageal probe was inserted and advanced into esophagus by Christy Perdomo MD. The MYRON was performed without complications. Synchronized Cardioversion attempted: Successful Synchronized Cardioversion acheived with 200 Joules after 1 attempt(s). Rhythm following Synchronized Cardioversion: Sinus Bradycardia Throughout the procedure, the blood pressure, pulse oximetry, cardiac rhythm, and rate were monitored . The patient tolerated the procedure without adverse effects. Recovery from general anesthesia was une ventful and vital signs were stable. LEFT VENTRICLE The Left Ventricle is mildly dilated. There is borderline to mild concentric left ventricular hypertr ophy. Left ventricle ejection fraction is severely impaired. The Ejection Fraction is 15-20 %. There is severe global hypokinesis. No left ventricle thrombus noted on this study. RIGHT VENTRICLE The right ventricle is moderately dilated. RV Systolic function is moderately reduced. ATRIA Spontaneous contrast in left atrium consistent with low flow state. The right atrium is severely dila bisi. The interatrial septum is intact with no evidence for an atrial septal defect or patent foramen ovale as noted on 2-D or Doppler imaging. There is no thrombus noted in the left atrial appendage. AORTIC VALVE The aortic valve is normal in structure and function. Doppler and Color Flow revealed no significant aortic regurgitation. There is no significant aortic valvular stenosis. MITRAL VALVE The mitral valve is calcified but opens well. There is no evidence of mitral valve prolapse. There is no mitral valve stenosis. Doppler and Color-flow revealed mild mitral regurgitation. TRICUSPID VALVE The tricuspid valve is normal in structure and function. Doppler and Color Flow revealed trace to mil d tricuspid regurgitation. There is no tricuspid valve stenosis. PULMONIC VALVE The pulmonary valve is normal in structure and function. Doppler and Color Flow revealed no pulmonic valvular regurgitation. There is no pulmonic valvular stenosis. GREAT VESSELS The aortic root is normal in size. There is moderate pulmonary artery dilatation. The IVC is normal i n size and collapses <50% with inspiration. Critical Notification Critical Value: No <Conclusion> Left ventricle ejection fraction is severely impaired. The Ejection Fraction is 15-20 %. There is severe global hypokinesis. The right ventricle is moderately dilated. RV Systolic function is moderately reduced. Successful CVN to SR. There is no thrombus noted in the left atrial appendage. Signed by : Christy Perdomo, Electronically Approved : 02/21/2019 12:50:12
[2019-02-21] MEDS: ISOSORBIDE MONONITRATE ER 30 MG TAB.ER.24H PO SCH (14:42)
--- NOTE | 2019-02-21 15:41 | EKG ---
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
[2019-02-21] MEDS: TEMAZEPAM 15 MG CAPSULE PO PRN (21:28)
[2019-02-21] MEDS: ATORVASTATIN CALCIUM 20 MG TABLET PO SCH (21:29)
[2019-02-22] VITALS (7 sets, daily range): BP systolic 93–165; BP diastolic 53–109
[2019-02-22] MEDS: APIXABAN 5 MG TABLET. PO SCH ×2 (08:21→21:16)
[2019-02-22] MEDS: FAMOTIDINE 20 MG TABLET. PO SCH (08:21)
[2019-02-22] MEDS: ASPIRIN ENTERIC COATED 81 MG TABLET.DR. PO SCH (08:21)
[2019-02-22] MEDS: LEVOTHYROXINE 100 MCG TABLET PO SCH (08:21)
[2019-02-22] MEDS: ISOSORBIDE MONONITRATE ER 30 MG TAB.ER.24H PO SCH (08:21)
[2019-02-22] MEDS: hydrALAZINE 10 MG TABLET PO SCH ×3 (08:21→21:15)
[2019-02-22] MEDS: AMIODARONE HCL 200 MG TABLET. PO SCH (08:22)
[2019-02-22] MEDS: METOPROLOL TART IMMED RELEASE 25 MG TABLET. PO SCH ×2 (08:22→21:16)
[2019-02-22] MEDS ORDERED: FUROSEMIDE 20 MG/2 ML VIAL. IVP ONE (12:15)
[2019-02-22] MEDS: TEMAZEPAM 15 MG CAPSULE PO PRN (21:16)
[2019-02-22] MEDS: ATORVASTATIN CALCIUM 20 MG TABLET PO SCH (21:16)
[2019-02-23 03:50] VITALS: BP 106/61
[2019-02-23 05:00] LABS: BASO # 0.1 x10^3/uL (0.0-0.2); BASO % 1 % (0-3); EOS # 0.1 x10^3/uL (0.0-0.7); EOS % 2 % (0-3); HEMATOCRIT 48.9 % (39.0-53.0); HEMOGLOBIN 16.1 g/dL (13.0-17.5); LYMPH # 2.3 x10^3/uL (1.0-4.8); LYMPH % 24 % (24-48); MEAN CORPUSCULAR HEMOGLOBIN 31 pg (25-35); MEAN CORPUSCULAR HGB CONC 33 g/dL (31-37); MEAN CORPUSCULAR VOLUME 94 fL (79-100); MONO # 1.2 x10^3/uL (0.0-1.1); MONO % 12 % (0-9); NEUT # 6.1 x10^3/uL (1.8-7.7); NEUT % 62 % (31-73); PLATELET COUNT 129 x10^3/uL (140-400); RED BLOOD COUNT 5.22 x10^6/uL (4.30-5.70); RED CELL DISTRIBUTION WIDTH 15.7 % (11.5-14.5); WHITE BLOOD COUNT 9.8 x10^3/uL (4.0-11.0)
[2019-02-23 05:20] LABS: CALCIUM 8.2 mg/dL (8.5-10.1); CREATININE 1.4 mg/dL (0.7-1.3); GFR 51.2; POTASSIUM 4.4 mmol/L (3.5-5.1)
[2019-02-23 07:00] VITALS: BP 120/84
--- NOTE | 2019-02-23 07:28 | PDOC ---
Provider Note Provider Note No new events. Patient remains in SR. He denies any chest pain. Overall, feels better. Meds reviewed: Metoprolol 12.5mg p.o bid, hydralazine 10mg tid, imdur 30mg daily, eliquis 5mg bid and atorvastatin 20mg qhs + Amiodarone 200mg daily Upon DC, would change his atorvastatin to lovastatin. He will likely need social service agency director assistance with obtaining disability for his heart failure. We will be happy to follow up with him in the office and provide more Eliquis samples. Pls call with questions. Ok to DC from CV standpoint. Thanks CHRISTY PERDOMO MD Feb 23, 2019 07:28
[2019-02-23] MEDS: ASPIRIN ENTERIC COATED 81 MG TABLET.DR. PO SCH (07:47)
[2019-02-23] MEDS: FAMOTIDINE 20 MG TABLET. PO SCH (07:47)
[2019-02-23] MEDS: hydrALAZINE 10 MG TABLET PO SCH ×2 (07:48→14:35)
[2019-02-23] MEDS: APIXABAN 5 MG TABLET. PO SCH (07:48)
[2019-02-23] MEDS: LEVOTHYROXINE 100 MCG TABLET PO SCH (07:48)
[2019-02-23] MEDS: ISOSORBIDE MONONITRATE ER 30 MG TAB.ER.24H PO SCH (07:49)
[2019-02-23] MEDS: AMIODARONE HCL 200 MG TABLET. PO SCH (07:49)
[2019-02-23] MEDS: METOPROLOL TART IMMED RELEASE 25 MG TABLET. PO SCH (07:50)
[2019-02-23 11:00] VITALS: BP 112/67
[2019-02-23] MEDS ORDERED: HYDR-2867 PO (13:42)
[2019-02-23] MEDS ORDERED: METO25TA4 PO (13:42)
[2019-02-23] MEDS ORDERED: LOVA20TA2 PO (13:42)
[2019-02-23] MEDS ORDERED: AMIO200T4 PO (13:42)
[2019-02-23] MEDS ORDERED: ISOS30TA4 PO (13:42)
[2019-02-23] MEDS ORDERED: APIX5TAB PO (13:42)
--- NOTE | 2019-02-23 13:44 | PDOC ---
PROGRESS NOTES Chief Complaint Chief Complaint A/P: Afib with RVR - with Atrial flutter: paroxysmal, was sinus prior to d/c last visit on coreg, he has been taking this. Severe cardiomyopathy - EF 20-25% DONI - with his atrophied left kidney on prior CT and recent lisinopril exposure and hyperkalemia will stop his lisinopril and transition to imdur + hydralazine. Will get renal doppler given his large Cr bump with lisinopril administration Hyperkalemia - hold lisinopril, kayexelate Hypothyroidism - TSH 24 Smoker - counseled on cessation CAD - LAD stenting in 2017 COPD - with continued tobaccoism better Chronic diastolic/systolic CHF: EF 20-25% HTN - controlled HLD - goal LDL is < 70mg/dL Moderate size infrarenal AAA Recovering methamphetamine user (quit 3 weeks ago) GERD - tums prn FEN - Cardiac diet PPX - eliquis per cardiology recs FULL CODE Dispo - Inpatient for recurrent atrial arrhythmia, DONI, cardiomyopathy. History of Present Illness History of Present Illness Mr Herrera is a 63-year-old M w/ PMHx smoker, CAD, HTN, HLD, COPD, GERD, OA, recovering methamphetamine user (quit 3 weeks ago) with recent diagnosis of LL pneumonia and AFIB with RVR returns with afib with RVR and DONI with large bump in creatinine to 2.1, K of 5.8, as well as Hb 21. He is feeling worse than his prior hospital stay, unable to get up out of bed. He was also diagnosed with severe cardiomyopathy with EF 20-25% and hypothyroidism last stay with TSH of 24 and started on levothyroxine 100mcg daily as well as carvedilol and lisinopril. He also notes his significant other on 12/15/2018 and he has been grief stricken, has no one with whom to spend Thanksgiving. Renal doppler does not show left kidney blood flow. 02/21: Cr improve to 2.1, Potassium normalized. He went into rapid afib overnight not responsive to digoxin or BB therapy, started on amiodarone GTT with better rate control. His SBP is in the low 90s. He feels very weak still. No CP. Mild SOB. Cardioverted successfully. 02/22: Feeling improved, but still short of breath. He is very dejected today, states he was motivated last time he was discharged, but having no loved ones to spend the holidays with has made him tearful and he is upset that he has no apparent function of his left kidney. Cr now 1.4. Feeling much improved. Still depressed about his social situation. Has eliquis samples and $4 scripts, referral to local [facility] and [place] for medication assistance. Can f/u with cardiology for at least samples if not appointment while he is awaiting insurance authorization. Cardiology recommends: Metoprolol 12.5mg p.o bid, hydralazine 10mg tid, imdur 30mg daily, eliquis 5mg bid and atorvastatin 20mg qhs + Amiodarone 200mg daily Vitals Vitals Vital Signs Date Time Temp Pulse Resp B/P (MAP) Pulse Ox O2 Delivery O2 Flow Rate FiO2 02/23/19 11:00 98.0 68 18 112/67 (82) 91 Room Air 98.0 02/23/19 08:00 6.0 Physical Exam General: Alert, Oriented X3, Cooperative, mild distress Lungs: Clear, Other Abdomen: Normal bowel sounds, Soft, No tenderness, No hepatosplenomegaly, No masses Extremities: No clubbing, No cyanosis, No edema, Normal pulses, No tenderness/swelling Skin: No rashes, No breakdown, No significant lesion Labs LABS Laboratory Tests Test 02/23/19 04:30 White Blood Count 9.8 x10^3/uL (4.0-11.0) Red Blood Count 5.22 x10^6/uL (4.30-5.70) Hemoglobin 16.1 g/dL (13.0-17.5) Hematocrit 48.9 % (39.0-53.0) Mean Corpuscular Volume 94 fL (79-100) Mean Corpuscular Hemoglobin 31 pg (25-35) Mean Corpuscular Hemoglobin Concent 33 g/dL (31-37) Red Cell Distribution Width 15.7 % (11.5-14.5) Platelet Count 129 x10^3/uL (140-400) Neutrophils (%) (Auto) 62 % (31-73) Lymphocytes (%) (Auto) 24 % (24-48) Monocytes (%) (Auto) 12 % (0-9) Eosinophils (%) (Auto) 2 % (0-3) Basophils (%) (Auto) 1 % (0-3) Neutrophils # (Auto) 6.1 x10^3/uL (1.8-7.7) Lymphocytes # (Auto) 2.3 x10^3/uL (1.0-4.8) Monocytes # (Auto) 1.2 x10^3/uL (0.0-1.1) Eosinophils # (Auto) 0.1 x10^3/uL (0.0-0.7) Basophils # (Auto) 0.1 x10^3/uL (0.0-0.2) Sodium Level 140 mmol/L (136-145) Potassium Level 4.4 mmol/L (3.5-5.1) Chloride Level 103 mmol/L (98-107) Carbon Dioxide Level 31 mmol/L (21-32) Anion Gap 6 (6-14) Blood Urea Nitrogen 24 mg/dL (8-26) Creatinine 1.4 mg/dL (0.7-1.3) Estimated GFR (Cockcroft-Gault) 51.2 Glucose Level 103 mg/dL (70-99) Calcium Level 8.2 mg/dL (8.5-10.1) Assessment and Plan Assessmemt and Plan Problems Medical Problems: (1) DONI (acute kidney injury) Status: Acute Comment Review of Relevant I have reviewed the following items hang (where applicable) has been applied. Labs Laboratory Tests Test 02/23/19 04:30 White Blood Count 9.8 x10^3/uL (4.0-11.0) Red Blood Count 5.22 x10^6/uL (4.30-5.70) Hemoglobin 16.1 g/dL (13.0-17.5) Hematocrit 48.9 % (39.0-53.0) Mean Corpuscular Volume 94 fL (79-100) Mean Corpuscular Hemoglobin 31 pg (25-35) Mean Corpuscular Hemoglobin Concent 33 g/dL (31-37) Red Cell Distribution Width 15.7 % (11.5-14.5) Platelet Count 129 x10^3/uL (140-400) Neutrophils (%) (Auto) 62 % (31-73) Lymphocytes (%) (Auto) 24 % (24-48) Monocytes (%) (Auto) 12 % (0-9) Eosinophils (%) (Auto) 2 % (0-3) Basophils (%) (Auto) 1 % (0-3) Neutrophils # (Auto) 6.1 x10^3/uL (1.8-7.7) Lymphocytes # (Auto) 2.3 x10^3/uL (1.0-4.8) Monocytes # (Auto) 1.2 x10^3/uL (0.0-1.1) Eosinophils # (Auto) 0.1 x10^3/uL (0.0-0.7) Basophils # (Auto) 0.1 x10^3/uL (0.0-0.2) Sodium Level 140 mmol/L (136-145) Potassium Level 4.4 mmol/L (3.5-5.1) Chloride Level 103 mmol/L (98-107) Carbon Dioxide Level 31 mmol/L (21-32) Anion Gap 6 (6-14) Blood Urea Nitrogen 24 mg/dL (8-26) Creatinine 1.4 mg/dL (0.7-1.3) Estimated GFR (Cockcroft-Gault) 51.2 Glucose Level 103 mg/dL (70-99) Calcium Level 8.2 mg/dL (8.5-10.1) Laboratory Tests Test 02/23/19 04:30 White Blood Count 9.8 x10^3/uL (4.0-11.0) Red Blood Count 5.22 x10^6/uL (4.30-5.70) Hemoglobin 16.1 g/dL (13.0-17.5) Hematocrit 48.9 % (39.0-53.0) Mean Corpuscular Volume 94 fL (79-100) Mean Corpuscular Hemoglobin 31 pg (25-35) Mean Corpuscular Hemoglobin Concent 33 g/dL (31-37) Red Cell Distribution Width 15.7 % (11.5-14.5) Platelet Count 129 x10^3/uL (140-400) Neutrophils (%) (Auto) 62 % (31-73) Lymphocytes (%) (Auto) 24 % (24-48) Monocytes (%) (Auto) 12 % (0-9) Eosinophils (%) (Auto) 2 % (0-3) Basophils (%) (Auto) 1 % (0-3) Neutrophils # (Auto) 6.1 x10^3/uL (1.8-7.7) Lymphocytes # (Auto) 2.3 x10^3/uL (1.0-4.8) Monocytes # (Auto) 1.2 x10^3/uL (0.0-1.1) Eosinophils # (Auto) 0.1 x10^3/uL (0.0-0.7) Basophils # (Auto) 0.1 x10^3/uL (0.0-0.2) Sodium Level 140 mmol/L (136-145) Potassium Level 4.4 mmol/L (3.5-5.1) Chloride Level 103 mmol/L (98-107) Carbon Dioxide Level 31 mmol/L (21-32) Anion Gap 6 (6-14) Blood Urea Nitrogen 24 mg/dL (8-26) Creatinine 1.4 mg/dL (0.7-1.3) Estimated GFR (Cockcroft-Gault) 51.2 Glucose Level 103 mg/dL (70-99) Calcium Level 8.2 mg/dL (8.5-10.1) Medications Current Medications Diltiazem HCl (Cardizem Iv Push) 10 mg 1X ONCE IVP Last administered on 02/19/19at 11:15; Start 02/19/19 at 11:00; Stop 02/19/19 at 11:01; Status DC Diltiazem HCl 125 mg/Dextrose 125 ml @ 5 mls/hr 1X ONCE IV Last administered on 02/19/19at 11:16; Start 02/19/19 at 11:00; Stop 02/20/19 at 11:59; Status DC Ondansetron HCl (Zofran) 4 mg PRN Q8HRS PRN IV NAUSEA/VOMITING; Start 02/19/19 at 12:45; Stop 02/20/19 at 12:44; Status DC Morphine Sulfate (Morphine Sulfate) 2 mg PRN Q2HR PRN IV PAIN; Start 02/19/19 at 12:45; Stop 02/20/19 at 12:44; Status DC Metoprolol Tartrate (Lopressor) 25 mg Q6HRS PO ; Start 02/19/19 at 18:00; Stop 02/19/19 at 14:13; Status DC Amiodarone HCl (Cordarone) 400 mg BID PO Last administered on 02/21/19 09:47; Start 02/19/19 at 21:00; Stop 02/21/19 at 12:18; Status DC Apixaban (Eliquis) 5 mg BID PO Last administered on 02/23/19 07:48; Start 02/19/19 at 21:00 Metoprolol Tartrate (Lopressor Vial) 5 mg PRN Q5MIN PRN IVP TACHYCARDIA Last administered on 02/20/19at 03:50; Start 02/19/19 at 13:45 Metoprolol Tartrate (Lopressor) 25 mg Q6HRS PO ; Start 02/19/19 at 14:30; Stop 02/19/19 at 14:49; Status DC Aspirin (Ecotrin) 81 mg DAILY PO Last administered on 02/23/19 07:47; Start 02/20/19 at 09:00 Atorvastatin Calcium (Lipitor) 20 mg QHS PO Last administered on 02/22/19at 21:16; Start 02/19/19 at 21:00 Famotidine (Pepcid) 20 mg DAILY PO Last administered on 02/23/19 07:47; Start 02/20/19 at 09:00 Levothyroxine Sodium (Synthroid) 100 mcg DAILYAC PO Last administered on 02/23/19 07:48; Start 02/20/19 at 07:30 Nicotine (Nicoderm Cq 21mg) 1 patch PRN DAILY PRN TD SMOKING CESSATION; Start 02/19/19 at 09:00 Isosorbide Mononitrate (Imdur) 30 mg DAILY PO Last administered on 02/23/19 07:49; Start 02/19/19 at 14:45 Hydralazine HCl (Apresoline) 10 mg TID PO Last administered on 02/23/19 07:48; Start 02/19/19 at 14:45 Metoprolol Tartrate (Lopressor) 25 mg ONCE ONCE PO Last administered on 02/19/19at 15:14; Start 02/19/19 at 14:45; Stop 02/19/19 at 14:50; Status DC Carvedilol (Coreg) 6.25 mg BIDWMEALS PO ; Start 02/19/19 at 17:00; Stop 02/19/19 at 16:24; Status DC Metoprolol Tartrate (Lopressor) 25 mg Q6HRS PO Last administered on 02/21/19at 10:03; Start 02/19/19 at 18:00; Stop 02/21/19 at 12:17; Status DC Temazepam (Restoril) 15 mg PRN QHS PRN PO INSOMNIA Last administered on 02/22/19at 21:16; Start 02/19/19 at 22:00 Digoxin (Lanoxin) 500 mcg 1X ONCE IV Last administered on 02/20/19at 05:57; Start 02/20/19 at 06:00; Stop 02/20/19 at 06:01; Status DC Amiodarone HCl 150 mg/Dextrose 103 ml @ 618 mls/hr 1X ONCE IV Last administered on 02/20/19at 09:29; Start 02/20/19 at 09:15; Stop 02/20/19 at 09:24; Status DC Amiodarone HCl 900 mg/Dextrose 518 ml @ 0 mls/hr CONT PRN IV SEE I/O RECORD Last administered on 02/20/19at 09:36; Start 02/20/19 at 09:15; Stop 02/20/19 at 09:36; Status DC Ondansetron HCl (Zofran) 4 mg PRN Q6HRS PRN IV NAUSEA/VOMITING; Start 02/21/19 at 10:15; Stop 02/21/19 at 20:00; Status DC Fentanyl Citrate (Fentanyl 2ml Vial) 25 mcg PRN Q5MIN PRN IV MILD PAIN 1-3; Start 02/21/19 at 10:15; Stop 02/21/19 at 20:00; Status DC Fentanyl Citrate (Fentanyl 2ml Vial) 50 mcg PRN Q5MIN PRN IV MODERATE TO SEVERE PAIN; Start 02/21/19 at 10:15; Stop 02/21/19 at 20:00; Status DC Morphine Sulfate (Morphine Sulfate) 1 mg PRN Q10MIN PRN IV SEVERE PAIN 7-10; Start 02/21/19 at 10:15; Stop 02/21/19 at 20:00; Status DC Ringer's Solution 1,000 ml @ 30 mls/hr Q24H IV ; Start 02/21/19 at 10:08; Stop 02/21/19 at 22:07; Status DC Hydromorphone HCl (Dilaudid) 0.5 mg PRN Q10MIN PRN IV SEV PAIN, Second choice; Start 02/21/19 at 10:15; Stop 02/21/19 at 20:00; Status DC Prochlorperazine Edisylate (Compazine) 5 mg PACU PRN PRN IV NAUSEA, MRX1; Start 02/21/19 at 10:15; Stop 02/21/19 at 20:00; Status DC Lidocaine HCl (Viscous Lidocaine) 15 ml 1X ONCE SWSW Last administered on 02/21/19at 11:50; Start 02/21/19 at 11:00; Stop 02/21/19 at 11:01; Status DC Benzocaine (Hurricaine One) 3 spray 1X ONCE MM Last administered on 02/21/19at 11:50; Start 02/21/19 at 11:00; Stop 02/21/19 at 11:01; Status DC Benzocaine (Hurricaine One) 1 spray STK-MED ONCE .ROUTE ; Start 02/21/19 at 10:57; Stop 02/21/19 at 10:58; Status DC Lidocaine HCl (Xylocaine 2% Topical 30gm Tube) 30 jelly STK-MED ONCE TP ; Start 02/21/19 at 11:12; Stop 02/21/19 at 11:13; Status DC Lidocaine HCl (Xylocaine 2% Topical 30gm Tube) 1 jelly 1X ONCE TP Last administered on 02/21/19at 11:50; Start 02/21/19 at 11:15; Stop 02/21/19 at 11:16; Status DC Propofol 40 ml @ As Directed STK-MED ONCE IV ; Start 02/21/19 at 11:30; Stop 02/21/19 at 11:31; Status DC Metoprolol Tartrate (Lopressor) 25 mg BID PO Last administered on 02/23/19at 07:50; Start 02/21/19 at 21:00 Amiodarone HCl (Cordarone) 200 mg DAILY PO Last administered on 02/23/19at 07:49; Start 02/22/19 at 09:00 Furosemide (Lasix) 20 mg 1X ONCE IVP Last administered on 02/22/19at 13:45; Start 02/22/19 at 12:15; Stop 02/22/19 at 12:16; Status DC Active Scripts Active Lovastatin 20 Mg Tablet 1 Tab PO DAILY 30 Days Metoprolol Tartrate 25 Mg Tablet 12.5 Mg PO BID 30 Days Isosorbide Mononitrate Er (Isosorbide Mononitrate) 30 Mg Tab.er.24h 30 Mg PO D AILY 30 Days Hydralazine Hcl 10 Mg Tablet 10 Mg PO TID 30 Days Amiodarone Hcl 200 Mg Tablet 200 Mg PO DAILY 30 Days Eliquis (Apixaban) 5 Mg Tablet 5 Mg PO BID 30 Days Lasix (Furosemide) 20 Mg Tablet 1 Tab PO DAILY 30 Days [Nicotine 21MG] 1 PATCH Patch 1 Patch TD PRN DAILY PRN Clopidogrel (Clopidogrel Bisulfate) 75 Mg Tablet 75 Mg PO DAILY Reported Medrol (Methylprednisolone) 4 Mg Tab.ds.pk 4 Mg PO DAILY Synthroid (Levothyroxine Sodium) 100 Mcg Tablet 100 Mcg PO DAILYAC Pepcid (Famotidine) 20 Mg Tablet 20 Mg PO BID Vitals/I & O Vital Sign - Last 24 Hours 02/22/19 02/22/19 02/22/19 02/22/19 13:45 14:47 19:05 20:00 Temp 98.2 98.3 98.2 98.3 Pulse 61 68 72 Resp 18 18 B/P (MAP) 105/66 129/62 (84) 93/63 (73) Pulse Ox 95 93 O2 Delivery Room Air Room Air Room Air O2 Flow Rate 6.0 02/22/19 02/22/19 02/22/19 02/23/19 21:15 21:16 23:28 03:50 Temp 98.1 98.0 98.1 98.0 Pulse 72 72 70 67 Resp 20 18 B/P (MAP) 93/63 93/63 110/69 (83) 106/61 (76) Pulse Ox 91 91 O2 Delivery Room Air Room Air 02/23/19 02/23/19 02/23/19 02/23/19 07:00 07:48 07:49 07:49 Temp 97.8 97.8 Pulse 68 71 71 71 Resp 18 B/P (MAP) 120/84 (96) 120/84 120/84 120/84 Pulse Ox 93 O2 Delivery Room Air 02/23/19 02/23/19 02/23/19 07:50 08:00 11:00 Temp 98.0 98.0 Pulse 67 68 Resp 18 B/P (MAP) 106/61 112/67 (82) Pulse Ox 91 O2 Delivery Room Air Room Air O2 Flow Rate 6.0 Intake and Output 02/22/19 02/22/19 02/23/19 15:00 23:00 07:00 Intake Total 350 ml Output Total 750 ml Balance -750 ml 350 ml DONNA CLINE MD Feb 23, 2019 13:44
--- NOTE | 2019-02-23 13:46 | PDOC3 ---
Discharge Summary Visit Information Date of Admission: Feb 19, 2019 Date of Discharge: Feb 23, 2019 Admitting Diagnosis: Aflutter with RVR Final Diagnosis Problems Medical Problems: (1) DONI (acute kidney injury) Status: Acute Brief Hospital Course Allergies Allergies Coded Allergies Type Severity Reaction Last Updated Verified No Known Drug Allergies 06/11/15 No Vital Signs Vital Signs Date Time Temp Pulse Resp B/P (MAP) Pulse Ox O2 Delivery O2 Flow Rate FiO2 02/23/19 11:00 98.0 68 18 112/67 (82) 91 Room Air 98.0 02/23/19 08:00 6.0 Lab Results Laboratory Tests Test 02/23/19 04:30 White Blood Count 9.8 x10^3/uL (4.0-11.0) Red Blood Count 5.22 x10^6/uL (4.30-5.70) Hemoglobin 16.1 g/dL (13.0-17.5) Hematocrit 48.9 % (39.0-53.0) Mean Corpuscular Volume 94 fL (79-100) Mean Corpuscular Hemoglobin 31 pg (25-35) Mean Corpuscular Hemoglobin Concent 33 g/dL (31-37) Red Cell Distribution Width 15.7 % (11.5-14.5) Platelet Count 129 x10^3/uL (140-400) Neutrophils (%) (Auto) 62 % (31-73) Lymphocytes (%) (Auto) 24 % (24-48) Monocytes (%) (Auto) 12 % (0-9) Eosinophils (%) (Auto) 2 % (0-3) Basophils (%) (Auto) 1 % (0-3) Neutrophils # (Auto) 6.1 x10^3/uL (1.8-7.7) Lymphocytes # (Auto) 2.3 x10^3/uL (1.0-4.8) Monocytes # (Auto) 1.2 x10^3/uL (0.0-1.1) Eosinophils # (Auto) 0.1 x10^3/uL (0.0-0.7) Basophils # (Auto) 0.1 x10^3/uL (0.0-0.2) Sodium Level 140 mmol/L (136-145) Potassium Level 4.4 mmol/L (3.5-5.1) Chloride Level 103 mmol/L (98-107) Carbon Dioxide Level 31 mmol/L (21-32) Anion Gap 6 (6-14) Blood Urea Nitrogen 24 mg/dL (8-26) Creatinine 1.4 mg/dL (0.7-1.3) Estimated GFR (Cockcroft-Gault) 51.2 Glucose Level 103 mg/dL (70-99) Calcium Level 8.2 mg/dL (8.5-10.1) Laboratory Tests Test 02/23/19 04:30 White Blood Count 9.8 x10^3/uL (4.0-11.0) Red Blood Count 5.22 x10^6/uL (4.30-5.70) Hemoglobin 16.1 g/dL (13.0-17.5) Hematocrit 48.9 % (39.0-53.0) Mean Corpuscular Volume 94 fL (79-100) Mean Corpuscular Hemoglobin 31 pg (25-35) Mean Corpuscular Hemoglobin Concent 33 g/dL (31-37) Red Cell Distribution Width 15.7 % (11.5-14.5) Platelet Count 129 x10^3/uL (140-400) Neutrophils (%) (Auto) 62 % (31-73) Lymphocytes (%) (Auto) 24 % (24-48) Monocytes (%) (Auto) 12 % (0-9) Eosinophils (%) (Auto) 2 % (0-3) Basophils (%) (Auto) 1 % (0-3) Neutrophils # (Auto) 6.1 x10^3/uL (1.8-7.7) Lymphocytes # (Auto) 2.3 x10^3/uL (1.0-4.8) Monocytes # (Auto) 1.2 x10^3/uL (0.0-1.1) Eosinophils # (Auto) 0.1 x10^3/uL (0.0-0.7) Basophils # (Auto) 0.1 x10^3/uL (0.0-0.2) Sodium Level 140 mmol/L (136-145) Potassium Level 4.4 mmol/L (3.5-5.1) Chloride Level 103 mmol/L (98-107) Carbon Dioxide Level 31 mmol/L (21-32) Anion Gap 6 (6-14) Blood Urea Nitrogen 24 mg/dL (8-26) Creatinine 1.4 mg/dL (0.7-1.3) Estimated GFR (Cockcroft-Gault) 51.2 Glucose Level 103 mg/dL (70-99) Calcium Level 8.2 mg/dL (8.5-10.1) Brief Hospital Course Mr Herrera is a 63-year-old M w/ PMHx smoker, CAD, HTN, HLD, COPD, GERD, OA, recovering methamphetamine user (quit 3 weeks ago) with recent diagnosis of LL pneumonia and AFIB with RVR returns with afib with RVR and DONI with large bump in creatinine to 2.1, K of 5.8, as well as Hb 21. He is feeling worse than his prior hospital stay, unable to get up out of bed. He was also diagnosed with severe cardiomyopathy with EF 20-25% and hypothyroidism last stay with TSH of 24 and started on levothyroxine 100mcg daily as well as carvedilol and lisinopril. He also notes his significant other on 12/15/2018 and he has been grief stricken, has no one with whom to spend Thanksgiving. Renal doppler does not show left kidney blood flow. 02/21: Cr improve to 2.1, Potassium normalized. He went into rapid afib overnight not responsive to digoxin or BB therapy, started on amiodarone GTT with better rate control. His SBP is in the low 90s. He feels very weak still. No CP. Mild SOB. Cardioverted successfully. 02/22: Feeling improved, but still short of breath. He is very dejected today, states he was motivated last time he was discharged, but having no loved ones to spend the holidays with has made him tearful and he is upset that he has no apparent function of his left kidney. Cr now 1.4. Feeling much improved. Still depressed about his social situation. Has eliquis samples and $4 scripts, referral [facility] and [employer] for medication assistance. Can f/u with cardiology for at least samples if not appointment while he is awaiting insurance authorization. Cardiology recommends: Metoprolol 12.5mg p.o bid, hydralazine 10mg tid, imdur 30mg daily, eliquis 5mg bid and atorvastatin 20mg qhs + Amiodarone 200mg daily A/P: Aflutter/afib with RVR - with Atrial flutter: paroxysmal, was sinus prior to d/c last visit on coreg, he has been taking this. Changed to metoprolol and had successful cardioversion on 02/21/2019, started on eliquis Severe cardiomyopathy - EF 20-25% DONI - with his atrophied left kidney on prior CT and recent lisinopril exposure and hyperkalemia will stop his lisinopril and transition to imdur + hydralazine. Renal doppler given his large Cr bump with lisinopril administration shows no bloodflow to left kidney. Hyperkalemia - hold lisinopril, kayexelate Hypothyroidism - TSH 24 Smoker - counseled on cessation CAD - LAD stenting in 2017 COPD - with continued tobaccoism better Chronic diastolic/systolic CHF: EF 20-25% HTN - controlled HLD - goal LDL is < 70mg/dL Moderate size infrarenal AAA Recovering methamphetamine user (quit 3 weeks ago) GERD - tums prn Greater than 30 minutes spent on d/c Discharge Information Condition at Discharge: Improved Follow Up: Weeks (1) Disposition/Orders: D/C to Home Scheduled Amiodarone Hcl (Amiodarone Hcl) 200 Mg Tablet, 200 MG PO DAILY for AFIB/FLUTTER/CHF for 30 Days, #30 Ref 2 Prescribed by: DONNA CLINE MD on 02/23/19 1342 Apixaban (Eliquis) 5 Mg Tablet, 5 MG PO BID for Aflutter/Afib for 30 Days, #60 Ref 11 Prescribed by: DONNA CLINE MD on 02/23/19 1342 Clopidogrel Bisulfate (Clopidogrel) 75 Mg Tablet, 75 MG PO DAILY for CAD, #30 Ref 0 Prescribed by: LAURO RICHARD on 02/12/19 0909 Last Action: Reviewed on 02/19/19 1318 by KARLO LEE Famotidine (Pepcid) 20 Mg Tablet, 20 MG PO BID, (Reported) Entered as Reported by: Jacquelin Amin on 07/17/16 1334 Last Action: Continued on 02/19/19 1421 by DONNA CLINE MD Furosemide (Lasix) 20 Mg Tablet, 1 TAB PO DAILY for CHF for 30 Days, #30 Ref 0 Prescribed by: GOPAL PRICE on 02/12/19 1321 Last Action: Reviewed on 02/19/19 1318 by KARLO LEE Hydralazine Hcl (Hydralazine Hcl) 10 Mg Tablet, 10 MG PO TID for CHF for 30 Days, #90 Ref 3 Prescribed by: DONNA CLINE MD on 02/23/19 1342 Isosorbide Mononitrate (Isosorbide Mononitrate Er) 30 Mg Tab.er.24h, 30 MG PO DAILY for CHF for 30 Days, #30 Ref 3 Prescribed by: DONNA CLINE MD on 02/23/19 1342 Levothyroxine Sodium (Synthroid) 100 Mcg Tablet, 100 MCG PO DAILYAC for THYROID SUPPLEMENT, #30 Ref 0 (Reported) Entered as Reported by: KARLO LEE on 02/12/19 1627 Last Action: Continued on 02/19/191420 by DONNA CLINE MD Lovastatin (Lovastatin) 20 Mg Tablet, 1 TAB PO DAILY for HLD/CHF for 30 Days, #30 Ref 2 Prescribed by: DONNA CLNIE MD on 02/23/19 1342 Metoprolol Tartrate (Metoprolol Tartrate) 25 Mg Tablet, 12.5 MG PO BID for Aflutter/CHF for 30 Days, #30 Ref 2 Prescribed by: DONNA CLINE MD on 02/23/19 1342 Scheduled PRN [Nicotine 21MG] 1 PATCH PATCH, 1 PATCH TD PRN DAILY PRN for SMOKING CESSATION, #10 Prescribed by: LAURO RICHARD on 02/12/19908 Last Action: Converted on 02/19/191420 by DONNA CLINE MD Discontinued Medications Aspirin (Aspirin Ec) 81 Mg Tablet.dr, 1 TAB PO DAILY for CAD, #30 Ref 3 Prescribed by: GOPAL PRICE on 02/12/19 1322 Last Action: Continued on 02/19/191420 by DONNA CLINE MD Atorvastatin Calcium (Atorvastatin Calcium) 20 Mg Tablet, 20 MG PO QHS for lipids, #60 Prescribed by: LAURO RICHARD on 02/12/19908 Last Action: Continued on 02/19/191420 by DONNA CLINE MD Carvedilol (Coreg ) 6.25 Mg Tablet, 6.25 MG PO BIDWMEALS for CARDIAC for 30 Days, #60 Prescribed by: GOPAL PRICE on 02/12/19 1321 Last Action: Continued on 02/19/19 1449 by DONNA CLINE MD Doxycycline Hyclate (Doxycycline Hyclate) 100 Mg Tablet, 100 MG PO BID for bronchitis, #14 Prescribed by: LAURO RICHARD on 02/12/1909 Last Action: Reviewed on 02/19/191317 by KARLO LEE Lisinopril (Lisinopril) 5 Mg Tablet, 1 TAB PO DAILY for CM MDD 30, #30 Ref 5 Prescribed by: GOPAL PRICE on 02/12/19 1321 Last Action: Reviewed on 02/19/191317 by KARLO LEE Methylprednisolone (Medrol) 4 Mg Tab.ds.pk, 4 MG PO DAILY for lung inflammation, (Reported) Entered as Reported by: AKRLO LEE on 02/12/19 1646 Last Action: Reviewed on 02/19/191317 by KARLO LEE Oxycodone/Apap 5-325 (Percocet 5-325 Mg Tablet ) 1 Each Tablet, 1 TAB PO PRN Q4HRS PRN for PAIN SEVERE, #10 Prescribed by: LAURO RICHARD on 02/12/1909 Last Action: Reviewed on 02/19/191317 by DONNA TRINH MD Feb 23, 2019 13:46
[2019-02-23 14:35] VITALS: BP 112/67
== END 2019-02-23 15:26 | disposition home or self-care (01) | DRG 683 ==
LOC: ER 10:37 → 2 SOUTH 12:18
PROVIDERS: ADMIT Internal Medicine; ATTEND Internal Medicine
PROC: 5A2204Z Restoration of Cardiac Rhythm, Single (ICD-10-PCS; principal; 2019-02-19)
DX: N17.9 Acute kidney failure, unspecified (principal); I48.92 Unspecified atrial flutter; I13.0 Hypertensive heart and chronic kidney disease with heart failure and stage 1 through stage 4 chronic kidney disease, or unspecified chronic kidney disease; I50.42 Chronic combined systolic (congestive) and diastolic (congestive) heart failure; I42.8 Other cardiomyopathies; D75.1 Secondary polycythemia; E03.9 Hypothyroidism, unspecified; E78.5 Hyperlipidemia, unspecified; E87.5 Hyperkalemia; F15.10 Other stimulant abuse, uncomplicated; F17.210 Nicotine dependence, cigarettes, uncomplicated; I25.10 Atherosclerotic heart disease of native coronary artery without angina pectoris; I25.5 Ischemic cardiomyopathy; I48.91 Unspecified atrial fibrillation; I71.4 Abdominal aortic aneurysm, without rupture; K21.9 Gastro-esophageal reflux disease without esophagitis; N18.9 Chronic kidney disease, unspecified; Z79.899 Other long term (current) drug therapy; Z87.01 Personal history of pneumonia (recurrent); Z87.442 Personal history of urinary calculi; Z90.49 Acquired absence of other specified parts of digestive tract; Z91.19 Patient's noncompliance with other medical treatment and regimen; Z98.61 Coronary angioplasty status; G47.00 Insomnia, unspecified; M19.90 Unspecified osteoarthritis, unspecified site; J44.9 Chronic obstructive pulmonary disease, unspecified
CPT/HCPCS: 36415; 71045; 76536; 76770; 80048; 80069; 80076; 80307; 83690; 83880; 84484; 85007; 85025; 85379; 85610; 85730; 93005; 93312; 93325; 96365; 96376; J0282; J1160; J1940; J2370; J2704; J2710; J3490; 99285-25; G0378

== ENCOUNTER 2019-02-26 15:56 | Inpatient (IN) | payer SELFPAY ==
[~2019-02-26] VITALS: Ht 175.3 cm; Wt 90.9 kg
[~2019-02-26 15:56] MED LIST changes: +AMIO200T4 PO; +APIX5TAB PO; +HYDR-2867 PO; +ISOS30TA4 PO; +LOVA20TA2 PO; -NICOTINE 21MG PATCH. TD PRN
[2019-02-26] MEDS ORDERED: dilTIAZem INJ 125 MG in IV DEXTROSE 5% 100ML 100 ML IV STA (16:29)
[2019-02-26] MEDS ORDERED: IV NORMAL SALINE 1000ML BAG 1,000 ML IV ONE (16:30)
[2019-02-26 16:42] LABS: BASO # 0.1 x10^3/uL (0.0-0.2); BASO % 1 % (0-3); EOS # 0.1 x10^3/uL (0.0-0.7); EOS % 1 % (0-3); HEMATOCRIT 54.5 % (39.0-53.0); HEMOGLOBIN 17.9 g/dL (13.0-17.5); LYMPH # 1.9 x10^3/uL (1.0-4.8); LYMPH % 17 % (24-48); MEAN CORPUSCULAR HEMOGLOBIN 31 pg (25-35); MEAN CORPUSCULAR HGB CONC 33 g/dL (31-37); MEAN CORPUSCULAR VOLUME 93 fL (79-100); MONO % 9 % (0-9); NEUT % 71 % (31-73); PLATELET COUNT 186 x10^3/uL (140-400); RED BLOOD COUNT 5.86 x10^6/uL (4.30-5.70); RED CELL DISTRIBUTION WIDTH 15.7 % (11.5-14.5); WHITE BLOOD COUNT 11.2 x10^3/uL (4.0-11.0)
[2019-02-26 16:52] LABS: CREATININE 1.3 mg/dL (0.7-1.3); GFR 55.8; POTASSIUM 4.4 mmol/L (3.5-5.1)
[2019-02-26 16:58] LABS: ALBUMIN 2.9 g/dL (3.4-5.0); ALBUMIN/GLOBULIN RATIO 0.6 (1.0-1.7); MAGNESIUM 1.7 mg/dL (1.8-2.4); TOTAL BILIRUBIN 0.5 mg/dL (0.2-1.0); TOTAL PROTEIN 7.4 g/dL (6.4-8.2)
[2019-02-26] MEDS ORDERED: NICOTINE 21MG PATCH. TD PRN (17:00)
--- NOTE | 2019-02-26 17:01 | RAD ---
Exam: Chest 2 views INDICATION: Shortness of breath TECHNIQUE: Frontal and lateral views the chest Comparisons: 02/26/2019 FINDINGS: The cardiomediastinal silhouette and pulmonary vessels are within normal limits. Patchy bibasilar airspace disease. There is linear bandlike opacity at the right midlung, likely atelectasis. No pleural effusion. IMPRESSION: Patchy bibasilar airspace disease may represent atelectasis or developing consolidation. Electronically signed by: Benita Hawkins MD (02/26/2019 4:59 PM) [facility]
[2019-02-26] MEDS ORDERED: MAGNESIUM SULFATE 1GM 100 ML IV STA (17:08)
[2019-02-26] MEDS ORDERED: cefTRIAXone IV Push 1 GM VIAL. IVP STA (17:09)
[2019-02-26] MEDS ORDERED: AZITHRMYCN 500MG IVPB FOR OMNI 250 ML IV STA (17:09)
--- NOTE | 2019-02-26 17:16 | PHYS DOC ---
Past Medical History Past Medical History: A-Fib, COPD, Hypertension, Other Additional Past Medical Histor: INSOMNIA,RVR,METH USE Past Surgical History: Appendectomy, Other Additional Past Surgical Histo: 5TH DISC REMOVAL Alcohol Use: None Drug Use: Methamphetamine, Other Adult General Chief Complaint Chief Complaint: SHORTNESS OF BREATH [facility] HPI Patient is a 63 year old male who presents with shortness of breath that has been ongoing for several days and palpitations around 3:00 PM today. The patient was first diagnosed with A. fib 2 weeks ago and put on Eliquis. He denies any pain at this time rates pain 0 out of 10 in severity. On arrival to the ER his heart rate was in the 150s. Review of Systems Review of Systems Constitutional: Denies fever or chills [] Eyes: Denies change in visual acuity, redness, or eye pain [] HENT: Denies nasal congestion or sore throat [] Respiratory: Reports shortness of breath. Cardiovascular: No additional information not addressed in HPI [] GI: Denies abdominal pain, nausea, vomiting, bloody stools or diarrhea [] : Denies dysuria or hematuria [] Musculoskeletal: Denies back pain or joint pain [] Integument: Denies rash or skin lesions [] Neurologic: Denies headache, focal weakness or sensory changes [] Endocrine: Denies polyuria or polydipsia [] Complete systems were reviewed and found to be within normal limits, except as documented in this note. Current Medications Current Medications Current Medications Medications (Trade) Dose Ordered Sig/Tarun Start Time Stop Time Status Last Admin Dose Admin Albuterol/ Ipratropium (Duoneb) 3 ml 1X ONCE 02/26/19 17:30 02/26/19 17:31 DC Azithromycin 250 ml @ 250 mls/hr 1X STAT 02/26/19 17:09 02/26/19 18:08 Ceftriaxone Sodium (Rocephin) 1 gm 1X STAT 02/26/19 17:09 02/26/19 17:10 DC Diltiazem HCl 125 mg/Dextrose 125 ml @ 5 mls/hr 1X STAT 02/26/19 16:29 02/27/19 17:28 Magnesium Sulfate/ Dextrose 100 ml @ 100 mls/hr 1X STAT 02/26/19 17:08 02/26/19 18:07 Methylprednisolone Sodium Succinate (SOLU-Medrol 125MG VIAL) 125 mg 1X ONCE 02/26/19 17:30 02/26/19 17:31 DC Sodium Chloride 1,000 ml @ 1,000 mls/hr 1X ONCE 02/26/19 16:30 02/26/19 17:29 DC 02/26/19 17:13 1,000 MLS/HR Allergies Allergies Allergies Coded Allergies Type Severity Reaction Last Updated Verified No Known Drug Allergies 06/11/15 No Physical Exam Physical Exam Constitutional: Well developed, well nourished, no acute distress, non-toxic appearance. [] HENT: Normocephalic, atraumatic, bilateral external ears normal, oropharynx moist, no oral exudates, nose normal. [] Eyes: PERRLA, EOMI, conjunctiva normal, no discharge. [] Neck: Normal range of motion, no tenderness, supple, no stridor. [] Cardiovascular:Heart rate regular tachycardic Lungs & Thorax: Bilateral breath sounds are diminished in lower lobes. Abdomen: Bowel sounds normal, soft, no tenderness, no masses, no pulsatile masses. [] Skin: Warm, dry, no erythema, no rash. [] Back: No tenderness, no CVA tenderness. [] Extremities: No tenderness, no cyanosis, no clubbing, ROM intact, no edema. [] Neurologic: Alert and oriented X 3, normal motor function, normal sensory function, no focal deficits noted. [] Psychologic: Affect normal, judgement normal, mood normal. [] Current Patient Data Vital Signs Vital Signs Date Time Temp Pulse Resp B/P (MAP) Pulse Ox O2 Delivery O2 Flow Rate FiO2 02/26/19 16:25 97.6 152 18 125/80 (95) 96 Room Air 97.6 Lab Values Laboratory Tests Test 02/26/19 16:25 White Blood Count 11.2 x10^3/uL (4.0-11.0) H Red Blood Count 5.86 x10^6/uL (4.30-5.70) H Hemoglobin 17.9 g/dL (13.0-17.5) H Hematocrit 54.5 % (39.0-53.0) H Mean Corpuscular Volume 93 fL (79-100) Mean Corpuscular Hemoglobin 31 pg (25-35) Mean Corpuscular Hemoglobin Concent 33 g/dL (31-37) Red Cell Distribution Width 15.7 % (11.5-14.5) H Platelet Count 186 x10^3/uL (140-400) Neutrophils (%) (Auto) 71 % (31-73) Lymphocytes (%) (Auto) 17 % (24-48) L Monocytes (%) (Auto) 9 % (0-9) Eosinophils (%) (Auto) 1 % (0-3) Basophils (%) (Auto) 1 % (0-3) Neutrophils # (Auto) 8.0 x10^3/uL (1.8-7.7) H Lymphocytes # (Auto) 1.9 x10^3/uL (1.0-4.8) Monocytes # (Auto) 1.0 x10^3/uL (0.0-1.1) Eosinophils # (Auto) 0.1 x10^3/uL (0.0-0.7) Basophils # (Auto) 0.1 x10^3/uL (0.0-0.2) Sodium Level 138 mmol/L (136-145) Potassium Level 4.4 mmol/L (3.5-5.1) Chloride Level 101 mmol/L (98-107) Carbon Dioxide Level 26 mmol/L (21-32) Anion Gap 11 (6-14) Blood Urea Nitrogen 24 mg/dL (8-26) Creatinine 1.3 mg/dL (0.7-1.3) Estimated GFR (Cockcroft-Gault) 55.8 BUN/Creatinine Ratio 18 (6-20) Glucose Level 162 mg/dL (70-99) H Calcium Level 9.0 mg/dL (8.5-10.1) Magnesium Level 1.7 mg/dL (1.8-2.4) L Total Bilirubin 0.5 mg/dL (0.2-1.0) Aspartate Amino Transferase (AST) 23 U/L (15-37) Alanine Aminotransferase (ALT) 37 U/L (16-63) Alkaline Phosphatase 70 U/L (46-116) Troponin I Quantitative 0.019 ng/mL (0.000-0.055) Total Protein 7.4 g/dL (6.4-8.2) Albumin 2.9 g/dL (3.4-5.0) L Albumin/Globulin Ratio 0.6 (1.0-1.7) L Laboratory Tests 02/26/19 16:25 Laboratory Tests 02/26/19 16:25 EKG EKG EKG interpreted by Dr. Yu Foster with rate of 151 2nd EKG Sinus with rate of 82. Radiology/Procedures Radiology/Procedures [][facility] [address] [place] [address] IMAGING REPORT Signed PATIENT: TIMMY KINNEY JACCOUNT: [id number] : 1955 LOCATION: ER AGE: 63 SEX: M EXAM STATUS: REG ER ORD. PHYSICIAN: TIMMY TURK APRN REASON: shortness of breath PROCEDURE: CHEST PA & LATERAL Exam: Chest 2 views INDICATION: Shortness of breath TECHNIQUE: Frontal and lateral views the chest Comparisons: 02/26/2019 FINDINGS: The cardiomediastinal silhouette and pulmonary vessels are within normal limits. Patchy bibasilar airspace disease. There is linear bandlike opacity at the right midlung, likely atelectasis. No pleural effusion. IMPRESSION: Patchy bibasilar airspace disease may represent atelectasis or developing consolidation. Electronically signed by: Benita Crowley MD (02/26/2019 4:59 PM) [facility] DICTATED and SIGNED BY: BENITA CROWLEY MD DATE: 02/26/19 7517 Course & Med Decision Making Course & Med Decision Making Pertinent Labs and Imaging studies reviewed. (See chart for details) Will get labs, chest x-ray, and order Cardizem and fluids. Patient presents in Afib with RVR. The patient self converted before cardizem. Labs shows elevated WBC, and x-ray suggests pneumonia. Will add lactic and blood cultures and Rocephin and Azithromycin. Will also order breathing treatment and steroids. Discussed case with Dr. Jimenez who accepts admission to hospital ([id number]). Also will consult cardiology. Dragon Disclaimer Dragon Disclaimer This electronic medical record was generated, in whole or in part, using a voice recognition dictation system. Departure Departure Impression: Primary Impression: Atrial fibrillation with RVR Additional Impression: Pneumonia Disposition: ADMITTED INPATIENT Admitting Physician: KRISTIE Condition: STABLE Problem Qualifiers Additional Impression: Pneumonia Pneumonia type: due to unspecified organism Laterality: unspecified laterality Lung location: unspecified part of lung Qualified Codes: J18.9 - Pneumonia, unspecified organism TIMMY TURK APRN Feb 26, 2019 17:16
[2019-02-26] MEDS ORDERED: methylPREDNISolone SOD SUCC PF 125 MG/2 ML VIAL. IV ONE (17:30)
[2019-02-26] MEDS ORDERED: IPRATRPIUM/ALBUTEROL 0.5/2.5MG 3 ML NEBU. NEB ONE (17:30)
[2019-02-26] MEDS ORDERED: ONDANSETRON PF 4 MG/2 ML VIAL. IV PRN ×2 (17:45→18:00)
[2019-02-26] MEDS ORDERED: fentaNYL PF VIAL 100 MCG/2 ML VIAL IV PRN (17:45)
--- NOTE | 2019-02-26 17:50 | PDOC1 ---
History and Physical Date of Admission Date of Admission DATE: 02/26/19 TIME: 17:42 Identification/Chief Complaint Chief Complaint seen in er , still a smoker SOA X 2 WEEKS 63 year old male who presents with shortness of breath that has been ongoing for several days and palpitations around 3:00 PM today. was first diagnosed with A. fib 2 weeks ago and put on Eliquis. He denies any pain at this time rates pain 0 out of 10 in severity. On arrival to the ER his heart rate was in the 150s., CONVERTED TO SINUS IN ER Past Medical History Past Medical History Past Medical History Past Medical History: A-Fib, COPD, Hypertension, Other Additional Past Medical Histor: INSOMNIA,RVR,METH USE Past Surgical History: Appendectomy, Other Additional Past Surgical Histo: 5TH DISC REMOVAL Alcohol Use: None Drug Use: Methamphetamine, Other Cardiovascular: CAD, HTN, Hyperlipidemia Pulmonary: COPD, Pneumonia GI: GERD Musculoskeletal: low back pain, Osteoarthritis Renal/: Other Past Surgical History Past Surgical History: Appendectomy, Other Family History Family History: Hypertension, Family History Unknown Social History Smoke: <1 pack per day ALCOHOL: rare Drugs: Crystal meth Current Problem List Problem List Problems Medical Problems: (1) Pneumonia Status: Acute Current Medications Current Medications Current Medications Sodium Chloride 1,000 ml @ 1,000 mls/hr 1X ONCE IV Last administered on 02/26/19at 17:13; Start 02/26/19 at 16:30; Stop 02/26/19 at 17:29; Status DC Diltiazem HCl 125 mg/Dextrose 125 ml @ 5 mls/hr 1X STAT IV ; Start 02/26/19 at 16:29; Stop 02/27/19 at 17:28 Magnesium Sulfate/ Dextrose 100 ml @ 100 mls/hr 1X STAT IV ; Start 02/26/19 at 17:08; Stop 02/26/19 at 18:07 Ceftriaxone Sodium (Rocephin) 1 gm 1X STAT IVP ; Start 02/26/19 at 17:09; Stop 02/26/19 at 17:10; Status DC Azithromycin 250 ml @ 250 mls/hr 1X STAT IV ; Start 02/26/19 at 17:09; Stop 02/26/19 at 18:08 Albuterol/ Ipratropium (Duoneb) 3 ml 1X ONCE NEB ; Start 02/26/19 at 17:30; Stop 02/26/19 at 17:31; Status DC Methylprednisolone Sodium Succinate (SOLU-Medrol 125MG VIAL) 125 mg 1X ONCE IV ; Start 02/26/19 at 17:30; Stop 02/26/19 at 17:31; Status DC Ondansetron HCl (Zofran) 4 mg PRN Q8HRS PRN IV NAUSEA/VOMITING; Start 02/26/19 at 17:45; Stop 02/27/19 at 17:44 Fentanyl Citrate (Fentanyl 2ml Vial) 50 mcg PRN Q1HR PRN IV PAIN; Start 02/26/19 at 17:45; Stop 02/26/19 at 22:00 Active Scripts Active Lovastatin 20 Mg Tablet 1 Tab PO DAILY 30 Days Metoprolol Tartrate 25 Mg Tablet 12.5 Mg PO BID 30 Days Isosorbide Mononitrate Er (Isosorbide Mononitrate) 30 Mg Tab.er.24h 30 Mg PO DAILY 30 Days Hydralazine Hcl 10 Mg Tablet 10 Mg PO TID 30 Days Amiodarone Hcl 200 Mg Tablet 200 Mg PO DAILY 30 Days Eliquis (Apixaban) 5 Mg Tablet 5 Mg PO BID 30 Days Lasix (Furosemide) 20 Mg Tablet 1 Tab PO DAILY 30 Days [Nicotine 21MG] 1 PATCH Patch 1 Patch TD PRN DAILY PRN Clopidogrel (Clopidogrel Bisulfate) 75 Mg Tablet 75 Mg PO DAILY Reported Synthroid (Levothyroxine Sodium) 100 Mcg Tablet 100 Mcg PO DAILYAC Pepcid (Famotidine) 20 Mg Tablet 20 Mg PO BID Allergies Allergies: Coded Allergies: No Known Drug Allergies (Unverified , 06/11/15) ROS Review of System Review of Systems Review of Systems Constitutional: Denies fever or chills [] Eyes: Denies change in visual acuity, redness, or eye pain [] HENT: Denies nasal congestion or sore throat [] Respiratory: Reports shortness of breath. Cardiovascular: No additional information not addressed in HPI [] GI: Denies abdominal pain, nausea, vomiting, bloody stools or diarrhea [] : Denies dysuria or hematuria [] Musculoskeletal: Denies back pain or joint pain [] Integument: Denies rash or skin lesions [] Neurologic: Denies headache, focal weakness or sensory changes [] Endocrine: Denies polyuria or polydipsia [] 14 PT systems were reviewed and found to be within normal limits, except as documented Respiratory: YES: Cough, Shortness of breath Cardiovascular: yes Palpitations Gastrointestinal: No Nausea, No Vomiting, No Abdominal Pain, No Diarrhea, No Constipation, No Melena, No Hematochezia, No Other Physical Exam Physical Exam Physical Exam Physical Exam Constitutional: Well developed, well nourished, no acute distress, non-toxic appearance. [] HENT: Normocephalic, atraumatic, bilateral external ears normal, oropharynx moist, no oral exudates, nose normal. [] Eyes: PERRLA, EOMI, conjunctiva normal, no discharge. [] Neck: Normal range of motion, no tenderness, supple, no stridor. [] Cardiovascular:Heart rate regular tachycardic Lungs & Thorax: Bilateral breath sounds are diminished in lower lobes. Abdomen: Bowel sounds normal, soft, no tenderness, no masses, no pulsatile masses. [] Skin: Warm, dry, no erythema, no rash. [] Back: No tenderness, no CVA tenderness. [] Extremities: No tenderness, no cyanosis, no clubbing, ROM intact, no edema. [] Neurologic: Alert and oriented X 3, normal motor function, normal sensory function, no focal deficits noted. [] Psychologic: Affect normal, POOR judgment normal, mood normal. [] General: Alert, Oriented X3, Cooperative, No acute distress HEENT: EOMI, Mucous membr. moist/pink Heart: irregularly irregular Breasts: Not examined Abdomen: Normal bowel sounds, Soft Rectal Exam: not examined PELVIC: Examination not indicated Extremities: No cyanosis Neuro: Normal speech, Cranial nerves 3-12 NL Psych/Mental Status: Mental status NL, Mood NL Vitals Vitals Vital Signs Date Time Temp Pulse Resp B/P (MAP) Pulse Ox O2 Delivery O2 Flow Rate FiO2 02/26/19 16:25 97.6 152 18 125/80 (95) 96 Room Air 97.6 Labs Labs Laboratory Tests Test 02/26/19 16:25 White Blood Count 11.2 x10^3/uL (4.0-11.0) Red Blood Count 5.86 x10^6/uL (4.30-5.70) Hemoglobin 17.9 g/dL (13.0-17.5) Hematocrit 54.5 % (39.0-53.0) Mean Corpuscular Volume 93 fL (79-100) Mean Corpuscular Hemoglobin 31 pg (25-35) Mean Corpuscular Hemoglobin Concent 33 g/dL (31-37) Red Cell Distribution Width 15.7 % (11.5-14.5) Platelet Count 186 x10^3/uL (140-400) Neutrophils (%) (Auto) 71 % (31-73) Lymphocytes (%) (Auto) 17 % (24-48) Monocytes (%) (Auto) 9 % (0-9) Eosinophils (%) (Auto) 1 % (0-3) Basophils (%) (Auto) 1 % (0-3) Neutrophils # (Auto) 8.0 x10^3/uL (1.8-7.7) Lymphocytes # (Auto) 1.9 x10^3/uL (1.0-4.8) Monocytes # (Auto) 1.0 x10^3/uL (0.0-1.1) Eosinophils # (Auto) 0.1 x10^3/uL (0.0-0.7) Basophils # (Auto) 0.1 x10^3/uL (0.0-0.2) Sodium Level 138 mmol/L (136-145) Potassium Level 4.4 mmol/L (3.5-5.1) Chloride Level 101 mmol/L (98-107) Carbon Dioxide Level 26 mmol/L (21-32) Anion Gap 11 (6-14) Blood Urea Nitrogen 24 mg/dL (8-26) Creatinine 1.3 mg/dL (0.7-1.3) Estimated GFR (Cockcroft-Gault) 55.8 BUN/Creatinine Ratio 18 (6-20) Glucose Level 162 mg/dL (70-99) Calcium Level 9.0 mg/dL (8.5-10.1) Magnesium Level 1.7 mg/dL (1.8-2.4) Total Bilirubin 0.5 mg/dL (0.2-1.0) Aspartate Amino Transf (AST/SGOT) 23 U/L (15-37) Alanine Aminotransferase (ALT/SGPT) 37 U/L (16-63) Alkaline Phosphatase 70 U/L (46-116) Troponin I Quantitative 0.019 ng/mL (0.000-0.055) Total Protein 7.4 g/dL (6.4-8.2) Albumin 2.9 g/dL (3.4-5.0) Albumin/Globulin Ratio 0.6 (1.0-1.7) Laboratory Tests Test 02/26/19 16:25 White Blood Count 11.2 x10^3/uL (4.0-11.0) Red Blood Count 5.86 x10^6/uL (4.30-5.70) Hemoglobin 17.9 g/dL (13.0-17.5) Hematocrit 54.5 % (39.0-53.0) Mean Corpuscular Volume 93 fL (79-100) Mean Corpuscular Hemoglobin 31 pg (25-35) Mean Corpuscular Hemoglobin Concent 33 g/dL (31-37) Red Cell Distribution Width 15.7 % (11.5-14.5) Platelet Count 186 x10^3/uL (140-400) Neutrophils (%) (Auto) 71 % (31-73) Lymphocytes (%) (Auto) 17 % (24-48) Monocytes (%) (Auto) 9 % (0-9) Eosinophils (%) (Auto) 1 % (0-3) Basophils (%) (Auto) 1 % (0-3) Neutrophils # (Auto) 8.0 x10^3/uL (1.8-7.7) Lymphocytes # (Auto) 1.9 x10^3/uL (1.0-4.8) Monocytes # (Auto) 1.0 x10^3/uL (0.0-1.1) Eosinophils # (Auto) 0.1 x10^3/uL (0.0-0.7) Basophils # (Auto) 0.1 x10^3/uL (0.0-0.2) Sodium Level 138 mmol/L (136-145) Potassium Level 4.4 mmol/L (3.5-5.1) Chloride Level 101 mmol/L (98-107) Carbon Dioxide Level 26 mmol/L (21-32) Anion Gap 11 (6-14) Blood Urea Nitrogen 24 mg/dL (8-26) Creatinine 1.3 mg/dL (0.7-1.3) Estimated GFR (Cockcroft-Gault) 55.8 BUN/Creatinine Ratio 18 (6-20) Glucose Level 162 mg/dL (70-99) Calcium Level 9.0 mg/dL (8.5-10.1) Magnesium Level 1.7 mg/dL (1.8-2.4) Total Bilirubin 0.5 mg/dL (0.2-1.0) Aspartate Amino Transf (AST/SGOT) 23 U/L (15-37) Alanine Aminotransferase (ALT/SGPT) 37 U/L (16-63) Alkaline Phosphatase 70 U/L (46-116) Troponin I Quantitative 0.019 ng/mL (0.000-0.055) Total Protein 7.4 g/dL (6.4-8.2) Albumin 2.9 g/dL (3.4-5.0) Albumin/Globulin Ratio 0.6 (1.0-1.7) Images Images PQRS Compliance Statement: One or more of the following individualized dose reduction techniques were utilized for this examination: 1. Automated exposure control 2. Adjustment of the mA and/or kV according to patient size 3. Use of iterative reconstruction technique CT ANGIO CHEST W ABD PEL W/ 02/11/2019 8:16 AM INDICATION: Chest and abdominal pain with shortness of breath. COMPARISON: CT chest 07/11/2016 TECHNIQUE: Multiple axial CT images of the chest, abdomen and pelvis were obtained after the intravenous administration of 75 mL Omnipaque 350. Coronal and sagittal reformats are provided. Maximum intensity projection images were obtained. FINDINGS: Thyroid gland is normal in appearance. Precarinal lymph node measures 10 mm by short axis. Aneurysm of the ascending thoracic aorta measures up to 4.3 cm. Descending thoracic aorta appears normal in caliber. There is borderline adequate opacification of pulmonary arteries. No filling defects are identified within the pulmonary arteries to suggest acute or chronic pulmonary emboli with limited evaluation of the subsegmental pulmonary arteries. Heart size within normal limits. No pericardial effusion. Three-vessel coronary artery vascular calcifications are present. Advanced centrilobular pulmonary emphysema. Consolidative changes right lung base may represent pneumonia in appropriate setting. Trace right pleural effusion. No significant pulmonary vascular congestion or pneumothorax. Bronchial wall thickening is compatible with bronchitis. There is a 13 mm x 9 mm solid noncalcified pulmonary nodule in the super segment left lower lobe (series 3, image 100). Remote healed right lateral seventh rib fracture is identified. Liver, bilateral adrenal glands, pancreas and gallbladder are normal in appearance. Calcifications within the spleen likely represent sequela prior granulomatous exposure. There is a portacaval lymph node which measures 11 mm by short axis. Nonenlarged mesenteric lymph nodes are identified measuring up to 9 mm in the left upper abdomen (series 5, image 40). Mild barbara to the small bowel mesentery is noted. There is aneurysm of the infrarenal abdominal aorta measuring up to 3.2 x 3.1 cm with peripheral calcified and noncalcified atheromatous plaque. 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 Moderate colonic diverticulosis involving the left colon and sigmoid colon without adjacent inflammatory change to suggest diverticulitis. Small large bowel are normal in caliber. No bowel obstruction or inflammation. Appendix is not definitively visualized. Right kidney is normal in enhancement without suspicious renal mass or hydronephrosis. There is severe atrophy of the left kidney which measures 2.7 cm in craniocaudal dimension. No hydronephrosis. Urinary bladder is within normal limits in degree of distention. Prostate demonstrates minimal coarse calcification. No suspicious abnormality involving the visualized osseous structures. IMPRESSION: 1. No definite pulmonary embolism with limited evaluation of the subsegmental pulmonary arteries due to borderline adequate opacification of the central pulmonary arteries. 2. Consolidative change in the right lower lobe may represent pneumonia in appropriate clinical setting. Recommend follow-up to resolution to exclude underlying neoplastic etiology. 3. There is a 13 x 9 mm solid noncalcified pulmonary nodule in the super segment left lower lobe. Findings previously measured 11 x 7 mm on 07/11/2016. Slow interval growth may be associated with benign disease, however a 3-6 month follow-up chest CT may be of benefit. 4. Severe atrophy of the left kidney. 5. Borderline lymph nodes in the portacaval distribution and left upper quadrant mesentery are nonspecific. Hazy attenuation within the root of small bowel mesentery may be seen with mesenteric adenitis. 3 month follow-up CT abdomen/pelvis may be of benefit. 6. Infrarenal abdominal aortic aneurysm measures 3.2 x 3.1 cm. Aneurysm of the ascending thoracic aorta is increased measuring 4.3 cm, previously 4.0 cm long 2016. Electronically signed by: Adrianne Cline MD (02/11/2019 1:08 PM) [id number] DICTATED and SIGNED BY: ADRIANNE CLINE MD DATE: 02/11/19 1308 Exam: Chest 2 views INDICATION: Shortness of breath TECHNIQUE: Frontal and lateral views the chest Comparisons: 02/26/2019 FINDINGS: The cardiomediastinal silhouette and pulmonary vessels are within normal limits. Patchy bibasilar airspace disease. There is linear bandlike opacity at the right midlung, likely atelectasis. No pleural effusion. IMPRESSION: Patchy bibasilar airspace disease may represent atelectasis or developing consolidation. Electronically signed by: Benita rCowley MD (02/26/2019 4:59 PM) [id number] DICTATED and SIGNED BY: BENITA CROWLEY MD DATE: 02/26/19 0801 VTE Prophylaxis Ordered VTE Prophylaxis Devices: Yes VTE Pharmacological Prophylaxi: Yes Assessment/Plan Assessment/Plan impression Patchy bibasilar airspace disease may represent atelectasis or developing consolidation. Aflutter/afib with RVR - with Atrial flutter: paroxysmal, Severe cardiomyopathy - EF 20-25% ckd atrophied left kidney Hypothyroidism - Smoker - still smoking counseled on cessation CAD - LAD stenting in 2016 COPD - with continued tobaccoism Chronic diastolic/systolic CHF: EF 20-25% HTN - HLD - goal LDL is < 70mg/dL Moderate size infrarenal AAA Infrarenal abdominal aortic aneurysm measures 3.2 x 3.1 cm. Aneurysm of the ascending thoracic aorta is increased measuring 4.3 cm, previously 4.0 cm long 2016. Recovering methamphetamine user (quit 8 weeks ago) GERD - tums prn plan admit cardiology consult pulm consult xopenex qid cardiology consult UDS Emperic iv antibiotics con DAPHNIE Baeza MD Feb 26, 2019 17:50
[2019-02-26] MEDS ORDERED: 0.9 % SODIUM CHLORIDE 10 ML DISP.SYRIN. IV PRN (18:00)
[2019-02-26] MEDS ORDERED: guaiFENesin ORAL 200 MG/10 ML LIQUID. PO PRN (18:00)
[2019-02-26] MEDS ORDERED: DOCUSATE SODIUM 100 MG CAPSULE. PO PRN (18:00)
[2019-02-26] MEDS ORDERED: LORazepam 0.5 MG TABLET PO PRN (18:00)
[2019-02-26] MEDS ORDERED: ACETAMINOPHEN 325 MG TABLET. PO PRN (18:00)
[2019-02-26] MEDS: IPRATRPIUM/ALBUTEROL 0.5/2.5MG 3 ML NEBU. NEB SCH ×2 (18:00→20:41)
[2019-02-26] MEDS ORDERED: cloNIDine HCL 0.1 MG TABLET PO PRN (18:00)
[2019-02-26] MEDS ORDERED: MAG HYDROX/ALUMINUM HYD/SIMETH 30 ML ORAL.SUSP PO PRN (18:00)
[2019-02-26 18:35] VITALS: BP 118/86
[2019-02-26] MEDS: ANTI-COAG MONITOR BY PHARMACY. MC PRN (19:03)
[2019-02-26] MEDS: ATORVASTATIN CALCIUM 10 MG TABLET. PO SCH (20:40)
[2019-02-26] MEDS: IV NORMAL SALINE 1000ML BAG 1,000 ML IV SCH (20:40)
[2019-02-26] MEDS: APIXABAN 5 MG TABLET. PO SCH (20:40)
[2019-02-26] MEDS: METOPROLOL TART IMMED RELEASE 25 MG TABLET. PO SCH (20:40)
[2019-02-26] MEDS: FAMOTIDINE 20 MG TABLET. PO SCH (20:41)
[2019-02-26] MEDS: hydrALAZINE 10 MG TABLET PO SCH (20:45)
[2019-02-26] MEDS: PIPERACILLIN/TAZOBACTAM 3.375 GM in IV NORMAL SALINE 50ML 50 ML IV SCH (20:48)
[2019-02-26] MEDS ORDERED: TEMAZEPAM 15 MG CAPSULE PO PRN (23:30)
[2019-02-26 23:48] VITALS: BP 114/69
[2019-02-27] MEDS: PIPERACILLIN/TAZOBACTAM 3.375 GM in IV NORMAL SALINE 50ML 50 ML IV SCH ×3 (00:36→13:20)
[2019-02-27 03:18] VITALS: BP 103/66
--- NOTE | 2019-02-27 06:51 | EKG ---
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
[2019-02-27 07:40] VITALS: BP 129/81
[2019-02-27] MEDS: IPRATRPIUM/ALBUTEROL 0.5/2.5MG 3 ML NEBU. NEB SCH ×5 (07:48→22:00)
[2019-02-27] MEDS: CLOPIDOGREL BISULFATE 75 MG TABLET PO SCH (08:12)
[2019-02-27] MEDS: FAMOTIDINE 20 MG TABLET. PO SCH ×2 (08:13→21:08)
[2019-02-27] MEDS: AMIODARONE HCL 200 MG TABLET. PO SCH (08:13)
[2019-02-27] MEDS: ISOSORBIDE MONONITRATE ER 30 MG TAB.ER.24H PO SCH (08:13)
[2019-02-27] MEDS: METOPROLOL TART IMMED RELEASE 25 MG TABLET. PO SCH ×2 (08:14→21:10)
[2019-02-27] MEDS: FUROSEMIDE 20 MG TABLET PO SCH (08:14)
[2019-02-27] MEDS: LEVOTHYROXINE 100 MCG TABLET PO SCH (08:15)
[2019-02-27] MEDS: APIXABAN 5 MG TABLET. PO SCH ×2 (08:15→21:08)
[2019-02-27] MEDS: hydrALAZINE 10 MG TABLET PO SCH ×3 (08:15→21:09)
[2019-02-27 08:40] LABS: BARBITURATES NEG (NEG); BENZODIAZEPINES NEG (NEG); CANNABINOIDS NEG (NEG); COCAINE NEG (NEG); METHADONE NEG (NEG); OPIATES NEG (NEG); PHENCYCLIDINE NEG (NEG)
[2019-02-27 08:46] LABS: AMPHETAMINE/METHAMPHETAMINE NEG (NEG)
[2019-02-27 08:52] LABS: BILIRUBIN,URINE NEGATIVE (NEG); CLARITY,URINE CLEAR; COLOR,URINE YELLOW; NITRITE,URINE NEGATIVE (NEG); PH,URINE 5.5; PROTEIN,URINE 30 mg/dL (NEG-TRACE); UROBILINOGEN,URINE 0.2 mg/dL (0.2 mg/dL)
[2019-02-27 09:05] LABS: BACTERIA,URINE 0 /HPF (0-FEW); RBC,URINE 0 /HPF (0-2); SQUAMOUS EPITHELIAL CELL,UR OCC /LPF; WBC,URINE OCC /HPF (0-4)
[2019-02-27 09:57] LABS: BASO % 0 % (0-3); EOS % 0 % (0-3); HEMATOCRIT 45.2 % (39.0-53.0); HEMOGLOBIN 15.2 g/dL (13.0-17.5); LYMPH # 0.6 x10^3/uL (1.0-4.8); LYMPH % 9 % (24-48); MEAN CORPUSCULAR HEMOGLOBIN 31 pg (25-35); MEAN CORPUSCULAR HGB CONC 34 g/dL (31-37); MEAN CORPUSCULAR VOLUME 93 fL (79-100); MONO # 0.4 x10^3/uL (0.0-1.1); MONO % 6 % (0-9); NEUT # 6.3 x10^3/uL (1.8-7.7); NEUT % 86 % (31-73); PLATELET COUNT 163 x10^3/uL (140-400); RED BLOOD COUNT 4.85 x10^6/uL (4.30-5.70); RED CELL DISTRIBUTION WIDTH 15.8 % (11.5-14.5); WHITE BLOOD COUNT 7.4 x10^3/uL (4.0-11.0)
--- NOTE | 2019-02-27 10:10 | PDOC ---
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 GERD low back pain, Osteoarthritis History of Present Illness History of Present Illness 02/27/19 Pt seen and examined by me LARSON RN In NSR on telemonitor Chart reviewed Vitals/I&O Vitals/I&O: Vital Signs Date Time Temp Pulse Resp B/P (MAP) Pulse Ox O2 Delivery O2 Flow Rate FiO2 02/27/19 08:15 80 129/81 02/27/19 07:49 94 Room Air 02/27/19 07:40 98.1 18 98.1 I & O 02/26/19 02/26/19 02/27/19 15:00 23:00 07:00 Intake Total 300 ml 650 ml Balance 300 ml 650 ml Physical Exam General: Alert, Oriented X3, Cooperative, No acute distress Lungs: Clear, Other Abdomen: Normal bowel sounds, Soft Extremities: No cyanosis Labs Labs: Laboratory Tests Test 02/26/19 16:25 02/26/19 17:55 02/26/19 20:45 02/27/19 08:20 White Blood Count 11.2 x10^3/uL (4.0-11.0) Red Blood Count 5.86 x10^6/uL (4.30-5.70) Hemoglobin 17.9 g/dL (13.0-17.5) Hematocrit 54.5 % (39.0-53.0) Mean Corpuscular Volume 93 fL (79-100) Mean Corpuscular Hemoglobin 31 pg (25-35) Mean Corpuscular Hemoglobin Concent 33 g/dL (31-37) Red Cell Distribution Width 15.7 % (11.5-14.5) Platelet Count 186 x10^3/uL (140-400) Neutrophils (%) (Auto) 71 % (31-73) Lymphocytes (%) (Auto) 17 % (24-48) Monocytes (%) (Auto) 9 % (0-9) Eosinophils (%) (Auto) 1 % (0-3) Basophils (%) (Auto) 1 % (0-3) Neutrophils # (Auto) 8.0 x10^3/uL (1.8-7.7) Lymphocytes # (Auto) 1.9 x10^3/uL (1.0-4.8) Monocytes # (Auto) 1.0 x10^3/uL (0.0-1.1) Eosinophils # (Auto) 0.1 x10^3/uL (0.0-0.7) Basophils # (Auto) 0.1 x10^3/uL (0.0-0.2) Sodium Level 138 mmol/L (136-145) Potassium Level 4.4 mmol/L (3.5-5.1) Chloride Level 101 mmol/L (98-107) Carbon Dioxide Level 26 mmol/L (21-32) Anion Gap 11 (6-14) Blood Urea Nitrogen 24 mg/dL (8-26) Creatinine 1.3 mg/dL (0.7-1.3) Estimated GFR (Cockcroft-Gault) 55.8 BUN/Creatinine Ratio 18 (6-20) Glucose Level 162 mg/dL (70-99) Calcium Level 9.0 mg/dL (8.5-10.1) Magnesium Level 1.7 mg/dL (1.8-2.4) Total Bilirubin 0.5 mg/dL (0.2-1.0) Aspartate Amino Transf (AST/SGOT) 23 U/L (15-37) Alanine Aminotransferase (ALT/SGPT) 37 U/L (16-63) Alkaline Phosphatase 70 U/L (46-116) Troponin I Quantitative 0.019 ng/mL (0.000-0.055) < 0.017 ng/mL (0.000-0.055) Total Protein 7.4 g/dL (6.4-8.2) Albumin 2.9 g/dL (3.4-5.0) Albumin/Globulin Ratio 0.6 (1.0-1.7) Lactic Acid Level 0.9 mmol/L (0.4-2.0) Urine Collection Type Unknown Urine Color Yellow Urine Clarity Clear Urine pH 5.5 Urine Specific [place] >=1.030 Urine Protein 30 mg/dL (NEG-TRACE) Urine Glucose (UA) >=1000 mg/dL (NEG) Urine Ketones (Stick) Trace mg/dL (NEG) Urine Blood Negative (NEG) Urine Nitrite Negative (NEG) Urine Bilirubin Negative (NEG) Urine Urobilinogen Dipstick 0.2 mg/dL (0.2 mg/dL) Urine Leukocyte Esterase Negative (NEG) Urine RBC 0 /HPF (0-2) Urine WBC Occ /HPF (0-4) Urine Squamous Epithelial Cells Occ /LPF Urine Bacteria 0 /HPF (0-FEW) Urine Opiates Screen Neg (NEG) Urine Methadone Screen Neg (NEG) Urine Barbiturates Neg (NEG) Urine Phencyclidine Screen Neg (NEG) Urine Amphetamine/Methamphetamine Neg (NEG) Urine Benzodiazepines Screen Neg (NEG) Urine Cocaine Screen Neg (NEG) Urine Cannabinoids Screen Neg (NEG) Urine Ethyl Alcohol Neg (NEG) Test 02/27/19 09:25 White Blood Count 7.4 x10^3/uL (4.0-11.0) Red Blood Count 4.85 x10^6/uL (4.30-5.70) Hemoglobin 15.2 g/dL (13.0-17.5) Hematocrit 45.2 % (39.0-53.0) Mean Corpuscular Volume 93 fL (79-100) Mean Corpuscular Hemoglobin 31 pg (25-35) Mean Corpuscular Hemoglobin Concent 34 g/dL (31-37) Red Cell Distribution Width 15.8 % (11.5-14.5) Platelet Count 163 x10^3/uL (140-400) Neutrophils (%) (Auto) 86 % (31-73) Lymphocytes (%) (Auto) 9 % (24-48) Monocytes (%) (Auto) 6 % (0-9) Eosinophils (%) (Auto) 0 % (0-3) Basophils (%) (Auto) 0 % (0-3) Neutrophils # (Auto) 6.3 x10^3/uL (1.8-7.7) Lymphocytes # (Auto) 0.6 x10^3/uL (1.0-4.8) Monocytes # (Auto) 0.4 x10^3/uL (0.0-1.1) Eosinophils # (Auto) 0.0 x10^3/uL (0.0-0.7) Basophils # (Auto) 0.0 x10^3/uL (0.0-0.2) Review of Systems Review of Systems: (-) CP, SOB Assessment and Plan Assessmemt and Plan Problems Medical Problems: (1) Pneumonia Status: Acute afib INSOMNIA RV METH USE Appendectomy 5TH DISC REMOVAL CAD, HTN, Hyperlipidemia 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 Medications: Current Medications Medications (Trade) Dose Ordered Sig/Tarun Route PRN Reason Start Time Stop Time Status Last Admin Dose Admin Sodium Chloride 1,000 ml @ 1,000 mls/hr 1X ONCE IV 02/26/19 16:30 02/26/19 17:29 DC 02/26/19 17:13 Magnesium Sulfate/ Dextrose 100 ml @ 100 mls/hr 1X STAT IV 02/26/19 17:08 02/26/19 18:07 DC 02/26/19 18:05 Ceftriaxone Sodium (Rocephin) 1 gm 1X STAT IVP 02/26/19 17:09 02/26/19 17:10 DC 02/26/19 18:03 Azithromycin 250 ml @ 250 mls/hr 1X STAT IV 02/26/19 17:09 02/26/19 18:08 DC 02/26/19 18:04 Albuterol/ Ipratropium (Duoneb) 3 ml 1X ONCE NEB 02/26/19 17:30 02/26/19 17:31 DC 02/26/19 18:06 Methylprednisolone Sodium Succinate (SOLU-Medrol 125MG VIAL) 125 mg 1X ONCE IV 02/26/19 17:30 02/26/19 17:31 DC 02/26/19 18:06 Amiodarone HCl (Cordarone) 200 mg DAILY PO 02/27/19 09:00 02/27/19 08:13 Apixaban (Eliquis) 5 mg BID PO 02/26/19 21:00 02/27/19 08:15 Clopidogrel Bisulfate (Plavix) 75 mg DAILY PO 02/27/19 09:00 02/27/19 08:12 Famotidine (Pepcid) 20 mg BID PO 02/26/19 21:00 02/27/19 08:13 Furosemide (Lasix) 20 mg DAILY PO 02/27/19 09:00 02/27/19 08:14 Hydralazine HCl (Apresoline) 10 mg TID PO 02/26/19 21:00 02/27/19 08:15 Isosorbide Mononitrate (Imdur) 30 mg DAILY PO 02/27/19 09:00 02/27/19 08:13 Levothyroxine Sodium (Synthroid) 100 mcg DAILY06 PO 02/27/19 06:00 02/27/19 08:15 Metoprolol Tartrate (Lopressor) 12.5 mg BID PO 02/26/19 21:00 02/27/19 08:14 Atorvastatin Calcium (Lipitor) 5 mg QHS PO 02/26/19 21:00 02/26/19 20:40 Piperacillin Sod/ Tazobactam Sod 3.375 gm/Sodium Chloride 50 ml @ 100 mls/hr Q6HRS IV 02/26/19 18:00 02/27/19 00:36 Albuterol/ Ipratropium (Duoneb) 3 ml Q4HRS W/A NEB 02/26/19 18:00 02/27/19 07:48 Info (Anti-Coagulation Monitoring By Pharmacy) 1 each PRN DAILY PRN MC SEE COMMENTS 02/26/19 18:00 02/26/19 19:03 Sodium Chloride 1,000 ml @ 50 mls/hr Q20H IV 02/26/19 18:00 02/26/19 20:40 Temazepam (Restoril) 15 mg 1X PRN PO INSOMNIA 02/26/19 23:30 02/27/19 02:00 DC 02/27/19 00:36 DEANDRE CABAN III DO Feb 27, 2019 10:10
--- NOTE | 2019-02-27 10:30 | PDOC ---
[employer] 02/27/19 1030: CARDIO Progress Notes Date and Time Date of Service 02/27/2019 Time of Evaluation 0900 Subjective Subjective: No Chest Pain, No shortness of breath, No Palpitations, Other (feels depressed) Vitals Vitals Vital Signs Date Time Temp Pulse Resp B/P (MAP) Pulse Ox O2 Delivery O2 Flow Rate FiO2 02/27/19 08:15 80 129/81 02/27/19 07:49 94 Room Air 02/27/19 07:40 98.1 18 98.1 Weight Weight [ ] Input and Output Intake and Output Intake and Output 02/27/19 06:59 Intake Total 950 ml Balance 950 ml Intake Oral 950 ml # Voids 2 Laboratory Labs Laboratory Tests Test 02/26/19 16:25 02/26/19 17:55 02/26/19 20:45 02/27/19 08:20 White Blood Count 11.2 x10^3/uL (4.0-11.0) Red Blood Count 5.86 x10^6/uL (4.30-5.70) Hemoglobin 17.9 g/dL (13.0-17.5) Hematocrit 54.5 % (39.0-53.0) Mean Corpuscular Volume 93 fL (79-100) Mean Corpuscular Hemoglobin 31 pg (25-35) Mean Corpuscular Hemoglobin Concent 33 g/dL (31-37) Red Cell Distribution Width 15.7 % (11.5-14.5) Platelet Count 186 x10^3/uL (140-400) Neutrophils (%) (Auto) 71 % (31-73) Lymphocytes (%) (Auto) 17 % (24-48) Monocytes (%) (Auto) 9 % (0-9) Eosinophils (%) (Auto) 1 % (0-3) Basophils (%) (Auto) 1 % (0-3) Neutrophils # (Auto) 8.0 x10^3/uL (1.8-7.7) Lymphocytes # (Auto) 1.9 x10^3/uL (1.0-4.8) Monocytes # (Auto) 1.0 x10^3/uL (0.0-1.1) Eosinophils # (Auto) 0.1 x10^3/uL (0.0-0.7) Basophils # (Auto) 0.1 x10^3/uL (0.0-0.2) Sodium Level 138 mmol/L (136-145) Potassium Level 4.4 mmol/L (3.5-5.1) Chloride Level 101 mmol/L (98-107) Carbon Dioxide Level 26 mmol/L (21-32) Anion Gap 11 (6-14) Blood Urea Nitrogen 24 mg/dL (8-26) Creatinine 1.3 mg/dL (0.7-1.3) Estimated GFR (Cockcroft-Gault) 55.8 BUN/Creatinine Ratio 18 (6-20) Glucose Level 162 mg/dL (70-99) Calcium Level 9.0 mg/dL (8.5-10.1) Magnesium Level 1.7 mg/dL (1.8-2.4) Total Bilirubin 0.5 mg/dL (0.2-1.0) Aspartate Amino Transf (AST/SGOT) 23 U/L (15-37) Alanine Aminotransferase (ALT/SGPT) 37 U/L (16-63) Alkaline Phosphatase 70 U/L (46-116) Troponin I Quantitative 0.019 ng/mL (0.000-0.055) < 0.017 ng/mL (0.000-0.055) Total Protein 7.4 g/dL (6.4-8.2) Albumin 2.9 g/dL (3.4-5.0) Albumin/Globulin Ratio 0.6 (1.0-1.7) Lactic Acid Level 0.9 mmol/L (0.4-2.0) Urine Collection Type Unknown Urine Color Yellow Urine Clarity Clear Urine pH 5.5 Urine Specific [place] >=1.030 Urine Protein 30 mg/dL (NEG-TRACE) Urine Glucose (UA) >=1000 mg/dL (NEG) Urine Ketones (Stick) Trace mg/dL (NEG) Urine Blood Negative (NEG) Urine Nitrite Negative (NEG) Urine Bilirubin Negative (NEG) Urine Urobilinogen Dipstick 0.2 mg/dL (0.2 mg/dL) Urine Leukocyte Esterase Negative (NEG) Urine RBC 0 /HPF (0-2) Urine WBC Occ /HPF (0-4) Urine Squamous Epithelial Cells Occ /LPF Urine Bacteria 0 /HPF (0-FEW) Urine Opiates Screen Neg (NEG) Urine Methadone Screen Neg (NEG) Urine Barbiturates Neg (NEG) Urine Phencyclidine Screen Neg (NEG) Urine Amphetamine/Methamphetamine Neg (NEG) Urine Benzodiazepines Screen Neg (NEG) Urine Cocaine Screen Neg (NEG) Urine Cannabinoids Screen Neg (NEG) Urine Ethyl Alcohol Neg (NEG) Test 02/27/19 09:25 White Blood Count 7.4 x10^3/uL (4.0-11.0) Red Blood Count 4.85 x10^6/uL (4.30-5.70) Hemoglobin 15.2 g/dL (13.0-17.5) Hematocrit 45.2 % (39.0-53.0) Mean Corpuscular Volume 93 fL (79-100) Mean Corpuscular Hemoglobin 31 pg (25-35) Mean Corpuscular Hemoglobin Concent 34 g/dL (31-37) Red Cell Distribution Width 15.8 % (11.5-14.5) Platelet Count 163 x10^3/uL (140-400) Neutrophils (%) (Auto) 86 % (31-73) Lymphocytes (%) (Auto) 9 % (24-48) Monocytes (%) (Auto) 6 % (0-9) Eosinophils (%) (Auto) 0 % (0-3) Basophils (%) (Auto) 0 % (0-3) Neutrophils # (Auto) 6.3 x10^3/uL (1.8-7.7) Lymphocytes # (Auto) 0.6 x10^3/uL (1.0-4.8) Monocytes # (Auto) 0.4 x10^3/uL (0.0-1.1) Eosinophils # (Auto) 0.0 x10^3/uL (0.0-0.7) Basophils # (Auto) 0.0 x10^3/uL (0.0-0.2) Physical Exam HEENT: Neck Supple W Full Motion Chest: Symmetric LUNGS: Other (diminished bases) Heart: RRR (SR), irregularly irregular Abdomen: Soft N/T Extremities: No Edema, No Calf Tenderness Neurology: alert, oriented, follow commands Assessment Assessment HPI: This is a pleasant 63 yo male admitted for complains of not feeling. He has been having nonproductive cough not more thatn usual he sais and felt some SOA with some palpitations. NO fever or chills. Per tele monitor he has been noted with intermittent RVR with atrial flutter with SR as main rhythm. He is known to us and was seen recently with recent cardioversion with amiodarone,metoprolol and eliquis on board. He continues to smoke tobacco and trying to quit. No peripheral edema and no complains of chest pain. He feels likely he does not any energy, he is appetite is decrease and has insomnia but meds sometimes helps. He feels depressed citing he just lost his significant other in Feb 14 and has not feeling like getting out of bed sometimes. He was noted with hypothyroidism recently and was started on replacement. Denies any suicidal thoughts. 1. Mild COPD exacerbation with possible pneumonia: per PCP 2. PAflutter: RVR episodes likely precipitated by above. Maintaing SR 3. Depression/grief: recent loss of significant other with underlying new hypothyroidism. Defer to PCP 4. Hypothyroidism: recent TSH 24 5. Tobaccoism 6. Chronic systolic CHF; compensated 7. 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 NYHA 1-2 8. HTN: controlled 9. HLP 10. CAD s/p PCI/stent to the LAD in 2017. clinically stable 11. Hx of meth use Recommendations 1. Continue metoprolol, amiodarone, and eliquis. Start on lisinopril and note BP trend 2. Resume secondary prevention measures including plavix 3. Smoking cessation 4. He has been provided with info by [facility] outreach [facility] due to financial constraints. Discussed follow up in office as able. Eliquis samples were provided from recent admission. 5. Smoking cessation 6. Lifevest would be ideal but pt would not be able to afford without ins coverage. 7. Will consult SS as he may qualify from disability CHRISTY PERDOMO MD 02/27/19 1618: CARDIO Progress Notes Plan Plan Patient seen and examined. Agree with above nurse practitioner note. Supportive care. [employer]ER Feb 27, 2019 10:30 CHRISTY PERDOMO MD Feb 27, 2019 16:18
[2019-02-27 10:56] LABS: % LYMPHS 8 % (24-48); % MONOS 6 % (0-10); % SEGS 86 % (35-66); PLT ESTIMATE ADEQUATE (ADEQUATE)
[2019-02-27] MEDS ORDERED: ASPIRIN ENTERIC COATED 81 MG TABLET.DR. PO SCH (11:00)
[2019-02-27 11:19] VITALS: BP 120/80
[2019-02-27] MEDS: ANTI-COAG MONITOR BY PHARMACY. MC PRN (11:21)
--- NOTE | 2019-02-27 13:18 | NUR ---
0500 dose of Zosyn administered by Claudia Saavedra RN. She administered at 0553 and attempted to administer via [employer], but it did not save. I went in and manually administered it as given at 0553.
[2019-02-27] MEDS: IV NORMAL SALINE 1000ML BAG 1,000 ML IV SCH (14:26)
[2019-02-27 15:17] VITALS: BP 112/65
--- NOTE | 2019-02-27 16:21 | PDOC ---
PULMONARY PROGRESS NOTES Vitals Vital Signs Date Time Temp Pulse Resp B/P (MAP) Pulse Ox O2 Delivery O2 Flow Rate FiO2 02/27/19 16:09 Room Air 02/27/19 15:17 98.2 80 20 112/65 (81) 94 98.2 General: Alert, No acute distress HEENT: Other Lungs: Clear, Other Cardiovascular: S1, S2 Abdomen: Soft, Non-tender Extremities: No Edema Labs Laboratory Tests Test 02/26/19 00:11 02/26/19 16:25 02/26/19 17:55 02/26/19 20:45 Troponin I Quantitative < 0.017 ng/mL (0.000-0.055) 0.019 ng/mL (0.000-0.055) < 0.017 ng/mL (0.000-0.055) White Blood Count 11.2 x10^3/uL (4.0-11.0) Red Blood Count 5.86 x10^6/uL (4.30-5.70) Hemoglobin 17.9 g/dL (13.0-17.5) Hematocrit 54.5 % (39.0-53.0) Mean Corpuscular Volume 93 fL (79-100) Mean Corpuscular Hemoglobin 31 pg (25-35) Mean Corpuscular Hemoglobin Concent 33 g/dL (31-37) Red Cell Distribution Width 15.7 % (11.5-14.5) Platelet Count 186 x10^3/uL (140-400) Neutrophils (%) (Auto) 71 % (31-73) Lymphocytes (%) (Auto) 17 % (24-48) Monocytes (%) (Auto) 9 % (0-9) Eosinophils (%) (Auto) 1 % (0-3) Basophils (%) (Auto) 1 % (0-3) Neutrophils # (Auto) 8.0 x10^3/uL (1.8-7.7) Lymphocytes # (Auto) 1.9 x10^3/uL (1.0-4.8) Monocytes # (Auto) 1.0 x10^3/uL (0.0-1.1) Eosinophils # (Auto) 0.1 x10^3/uL (0.0-0.7) Basophils # (Auto) 0.1 x10^3/uL (0.0-0.2) Sodium Level 138 mmol/L (136-145) Potassium Level 4.4 mmol/L (3.5-5.1) Chloride Level 101 mmol/L (98-107) Carbon Dioxide Level 26 mmol/L (21-32) Anion Gap 11 (6-14) Blood Urea Nitrogen 24 mg/dL (8-26) Creatinine 1.3 mg/dL (0.7-1.3) Estimated GFR (Cockcroft-Gault) 55.8 BUN/Creatinine Ratio 18 (6-20) Glucose Level 162 mg/dL (70-99) Calcium Level 9.0 mg/dL (8.5-10.1) Magnesium Level 1.7 mg/dL (1.8-2.4) Total Bilirubin 0.5 mg/dL (0.2-1.0) Aspartate Amino Transf (AST/SGOT) 23 U/L (15-37) Alanine Aminotransferase (ALT/SGPT) 37 U/L (16-63) Alkaline Phosphatase 70 U/L (46-116) Total Protein 7.4 g/dL (6.4-8.2) Albumin 2.9 g/dL (3.4-5.0) Albumin/Globulin Ratio 0.6 (1.0-1.7) Lactic Acid Level 0.9 mmol/L (0.4-2.0) Test 02/27/19 08:20 02/27/19 09:25 Urine Collection Type Unknown Urine Color Yellow Urine Clarity Clear Urine pH 5.5 Urine Specific [place] >=1.030 Urine Protein 30 mg/dL (NEG-TRACE) Urine Glucose (UA) >=1000 mg/dL (NEG) Urine Ketones (Stick) Trace mg/dL (NEG) Urine Blood Negative (NEG) Urine Nitrite Negative (NEG) Urine Bilirubin Negative (NEG) Urine Urobilinogen Dipstick 0.2 mg/dL (0.2 mg/dL) Urine Leukocyte Esterase Negative (NEG) Urine RBC 0 /HPF (0-2) Urine WBC Occ /HPF (0-4) Urine Squamous Epithelial Cells Occ /LPF Urine Bacteria 0 /HPF (0-FEW) Urine Opiates Screen Neg (NEG) Urine Methadone Screen Neg (NEG) Urine Barbiturates Neg (NEG) Urine Phencyclidine Screen Neg (NEG) Urine Amphetamine/Methamphetamine Neg (NEG) Urine Benzodiazepines Screen Neg (NEG) Urine Cocaine Screen Neg (NEG) Urine Cannabinoids Screen Neg (NEG) Urine Ethyl Alcohol Neg (NEG) White Blood Count 7.4 x10^3/uL (4.0-11.0) Red Blood Count 4.85 x10^6/uL (4.30-5.70) Hemoglobin 15.2 g/dL (13.0-17.5) Hematocrit 45.2 % (39.0-53.0) Mean Corpuscular Volume 93 fL (79-100) Mean Corpuscular Hemoglobin 31 pg (25-35) Mean Corpuscular Hemoglobin Concent 34 g/dL (31-37) Red Cell Distribution Width 15.8 % (11.5-14.5) Platelet Count 163 x10^3/uL (140-400) Neutrophils (%) (Auto) 86 % (31-73) Lymphocytes (%) (Auto) 9 % (24-48) Monocytes (%) (Auto) 6 % (0-9) Eosinophils (%) (Auto) 0 % (0-3) Basophils (%) (Auto) 0 % (0-3) Neutrophils # (Auto) 6.3 x10^3/uL (1.8-7.7) Lymphocytes # (Auto) 0.6 x10^3/uL (1.0-4.8) Monocytes # (Auto) 0.4 x10^3/uL (0.0-1.1) Eosinophils # (Auto) 0.0 x10^3/uL (0.0-0.7) Basophils # (Auto) 0.0 x10^3/uL (0.0-0.2) Segmented Neutrophils % 86 % (35-66) Lymphocytes % 8 % (24-48) Monocytes % 6 % (0-10) Platelet Estimate Adequate (ADEQUATE) Magnesium Level 1.7 mg/dL (1.8-2.4) Thyroid Stimulating Hormone (TSH) 6.128 uIU/mL (0.358-3.74) Laboratory Tests Test 02/26/19 16:25 02/26/19 17:55 02/26/19 20:45 02/27/19 08:20 White Blood Count 11.2 x10^3/uL (4.0-11.0) Red Blood Count 5.86 x10^6/uL (4.30-5.70) Hemoglobin 17.9 g/dL (13.0-17.5) Hematocrit 54.5 % (39.0-53.0) Mean Corpuscular Volume 93 fL (79-100) Mean Corpuscular Hemoglobin 31 pg (25-35) Mean Corpuscular Hemoglobin Concent 33 g/dL (31-37) Red Cell Distribution Width 15.7 % (11.5-14.5) Platelet Count 186 x10^3/uL (140-400) Neutrophils (%) (Auto) 71 % (31-73) Lymphocytes (%) (Auto) 17 % (24-48) Monocytes (%) (Auto) 9 % (0-9) Eosinophils (%) (Auto) 1 % (0-3) Basophils (%) (Auto) 1 % (0-3) Neutrophils # (Auto) 8.0 x10^3/uL (1.8-7.7) Lymphocytes # (Auto) 1.9 x10^3/uL (1.0-4.8) Monocytes # (Auto) 1.0 x10^3/uL (0.0-1.1) Eosinophils # (Auto) 0.1 x10^3/uL (0.0-0.7) Basophils # (Auto) 0.1 x10^3/uL (0.0-0.2) Sodium Level 138 mmol/L (136-145) Potassium Level 4.4 mmol/L (3.5-5.1) Chloride Level 101 mmol/L (98-107) Carbon Dioxide Level 26 mmol/L (21-32) Anion Gap 11 (6-14) Blood Urea Nitrogen 24 mg/dL (8-26) Creatinine 1.3 mg/dL (0.7-1.3) Estimated GFR (Cockcroft-Gault) 55.8 BUN/Creatinine Ratio 18 (6-20) Glucose Level 162 mg/dL (70-99) Calcium Level 9.0 mg/dL (8.5-10.1) Magnesium Level 1.7 mg/dL (1.8-2.4) Total Bilirubin 0.5 mg/dL (0.2-1.0) Aspartate Amino Transf (AST/SGOT) 23 U/L (15-37) Alanine Aminotransferase (ALT/SGPT) 37 U/L (16-63) Alkaline Phosphatase 70 U/L (46-116) Troponin I Quantitative 0.019 ng/mL (0.000-0.055) < 0.017 ng/mL (0.000-0.055) Total Protein 7.4 g/dL (6.4-8.2) Albumin 2.9 g/dL (3.4-5.0) Albumin/Globulin Ratio 0.6 (1.0-1.7) Lactic Acid Level 0.9 mmol/L (0.4-2.0) Urine Collection Type Unknown Urine Color Yellow Urine Clarity Clear Urine pH 5.5 Urine Specific [place] >=1.030 Urine Protein 30 mg/dL (NEG-TRACE) Urine Glucose (UA) >=1000 mg/dL (NEG) Urine Ketones (Stick) Trace mg/dL (NEG) Urine Blood Negative (NEG) Urine Nitrite Negative (NEG) Urine Bilirubin Negative (NEG) Urine Urobilinogen Dipstick 0.2 mg/dL (0.2 mg/dL) Urine Leukocyte Esterase Negative (NEG) Urine RBC 0 /HPF (0-2) Urine WBC Occ /HPF (0-4) Urine Squamous Epithelial Cells Occ /LPF Urine Bacteria 0 /HPF (0-FEW) Urine Opiates Screen Neg (NEG) Urine Methadone Screen Neg (NEG) Urine Barbiturates Neg (NEG) Urine Phencyclidine Screen Neg (NEG) Urine Amphetamine/Methamphetamine Neg (NEG) Urine Benzodiazepines Screen Neg (NEG) Urine Cocaine Screen Neg (NEG) Urine Cannabinoids Screen Neg (NEG) Urine Ethyl Alcohol Neg (NEG) Test 02/27/19 09:25 White Blood Count 7.4 x10^3/uL (4.0-11.0) Red Blood Count 4.85 x10^6/uL (4.30-5.70) Hemoglobin 15.2 g/dL (13.0-17.5) Hematocrit 45.2 % (39.0-53.0) Mean Corpuscular Volume 93 fL (79-100) Mean Corpuscular Hemoglobin 31 pg (25-35) Mean Corpuscular Hemoglobin Concent 34 g/dL (31-37) Red Cell Distribution Width 15.8 % (11.5-14.5) Platelet Count 163 x10^3/uL (140-400) Neutrophils (%) (Auto) 86 % (31-73) Lymphocytes (%) (Auto) 9 % (24-48) Monocytes (%) (Auto) 6 % (0-9) Eosinophils (%) (Auto) 0 % (0-3) Basophils (%) (Auto) 0 % (0-3) Neutrophils # (Auto) 6.3 x10^3/uL (1.8-7.7) Lymphocytes # (Auto) 0.6 x10^3/uL (1.0-4.8) Monocytes # (Auto) 0.4 x10^3/uL (0.0-1.1) Eosinophils # (Auto) 0.0 x10^3/uL (0.0-0.7) Basophils # (Auto) 0.0 x10^3/uL (0.0-0.2) Segmented Neutrophils % 86 % (35-66) Lymphocytes % 8 % (24-48) Monocytes % 6 % (0-10) Platelet Estimate Adequate (ADEQUATE) Magnesium Level 1.7 mg/dL (1.8-2.4) Thyroid Stimulating Hormone (TSH) 6.128 uIU/mL (0.358-3.74) Medications Active Scripts Medications Dose Route/Sig Max Daily Dose Days Date Category Lovastatin 20 Mg Tablet 1 Tab PO DAILY 30 02/23/19 Rx Metoprolol Tartrate 25 Mg Tablet 12.5 Mg PO BID 30 02/23/19 Rx Isosorbide Mononitrate Er (Isosorbide Mononitrate) 30 Mg Tab.er.24h 30 Mg PO DAILY 30 02/23/19 Rx Hydralazine Hcl 10 Mg Tablet 10 Mg PO TID 30 02/23/19 Rx Amiodarone Hcl 200 Mg Tablet 200 Mg PO DAILY 30 02/23/19 Rx Eliquis (Apixaban) 5 Mg Tablet 5 Mg PO BID 30 02/23/19 Rx Synthroid (Levothyroxine Sodium) 100 Mcg Tablet 100 Mcg PO DAILYAC 02/12/19 Reported Lasix (Furosemide) 20 Mg Tablet 1 Tab PO DAILY 30 02/12/19 Rx [Nicotine 21MG] 1 PATCH Patch 1 Patch TD PRN DAILY PRN 02/12/19 Rx Pepcid (Famotidine) 20 Mg Tablet 20 Mg PO BID 07/17/16 Reported Impression . note dictated agree with current rx will follow KATHLEEN LATHAM MD Feb 27, 2019 16:21
[2019-02-27] MEDS: PIPERACILLIN/TAZOBACTAM 4.5 GM in IV NORMAL SALINE 100ML 100 ML IV SCH (18:06)
[2019-02-27 19:04] VITALS: BP_SYST 108; BP_SYST 119; BP_DIAS 46; BP_DIAS 74
[2019-02-27] MEDS ORDERED: TEMAZEPAM 15 MG CAPSULE PO PRN (21:00)
[2019-02-27] MEDS: LACTOBACILLUS RHAMNOSUS GG 1 CAPSULE. PO SCH (21:09)
[2019-02-27] MEDS: ATORVASTATIN CALCIUM 10 MG TABLET. PO SCH (21:09)
[2019-02-27 23:32] VITALS: BP 108/74
[2019-02-28] MEDS: PIPERACILLIN/TAZOBACTAM 4.5 GM in IV NORMAL SALINE 100ML 100 ML IV SCH ×3 (00:57→12:18)
--- NOTE | 2019-02-28 01:02 | CONS ---
DATE OF CONSULTATION: 02/27/2019 ATTENDING PHYSICIAN: Stanford Jimenez MD REASON FOR CONSULTATION: The patient is seen in pulmonary consultation at the request of Dr. Jimenez for increasing shortness of air. HISTORY OF PRESENT ILLNESS: The patient is a 63-year-old with a history of cardiomyopathy, paroxysmal AFib, hypothyroidism and COPD. He has had a history of ischemic cardiomyopathy, ejection fraction 25%-30%, seen in the Emergency Room with increasing shortness of breath over the last 2-3 days. He also had some palpitations. He was diagnosed with AFib approximately 2 weeks ago and was placed on Eliquis. He does not have any insurance coverage. He is currently receiving some assistance for his medications. He continues to smoke on and off. He was admitted. I was asked to see him in consultation. His chest x-ray revealed possible airspace disease in the bases of the lungs. PAST MEDICAL HISTORY: COPD of the emphysematous type, tobacco dependent, paroxysmal AFib, depression, hypothyroidism, tobacco use, chronic systolic heart failure, chronic hypertension, hyperlipidemia, coronary artery disease with previous PCI and stent placement in the LAD in 2017, history of meth use. PAST SURGICAL HISTORY: As above. ALLERGIES: No known drug allergies. REVIEW OF SYSTEMS: As indicated above, otherwise, a 10-point system was reviewed and negative. PHYSICAL EXAMINATION: VITAL SIGNS: Stable. O2 saturation on room air was 93%. HEENT: Eyes, the sclerae were nonicteric. NECK: Jugular venous distention was not elevated. No lymphadenopathy. CHEST: Full expansion. LUNGS: Poor airway flow, crackles in the bases. CARDIOVASCULAR: Regular rate and rhythm with S1, S2, no S3. ABDOMEN: Soft, nontender, nondistended. EXTREMITIES: No clubbing, cyanosis or edema. RADIOLOGICAL DATA: Chest x-ray reviewed. LABORATORY DATA: Reviewed. IMPRESSION: 1. [id number] systolic heart failure. 2. Acute exacerbation of chronic obstructive pulmonary disease. 3. Possible pneumonia. 4. Hypertension. 5. Hyperlipidemia. 6. Coronary artery disease with previous PCI and stent placement. 7. History of methamphetamine use. 8. Tobacco use. PLAN: 1. Continue diuresis per Cardiology. 2. Continue metoprolol and amiodarone along with Eliquis. 3. The patient instructed on the importance of discontinuing tobacco use. I do appreciate the privilege in sharing the patient's care. KATHLEEN LATHAM MD DR: Domo JOB#: [id number] / [id number]
[2019-02-28 03:00] VITALS: BP 112/79
[2019-02-28] MEDS: LEVOTHYROXINE 100 MCG TABLET PO SCH (05:48)
[2019-02-28 07:59] VITALS: BP 131/78
[2019-02-28] MEDS: IPRATRPIUM/ALBUTEROL 0.5/2.5MG 3 ML NEBU. NEB SCH ×2 (08:00→12:04)
[2019-02-28] MEDS: LACTOBACILLUS RHAMNOSUS GG 1 CAPSULE. PO SCH (08:43)
[2019-02-28] MEDS: APIXABAN 5 MG TABLET. PO SCH (08:43)
[2019-02-28] MEDS: METOPROLOL TART IMMED RELEASE 25 MG TABLET. PO SCH (08:43)
[2019-02-28] MEDS: AMIODARONE HCL 200 MG TABLET. PO SCH (08:43)
[2019-02-28] MEDS: CLOPIDOGREL BISULFATE 75 MG TABLET PO SCH (08:43)
[2019-02-28 08:44] LABS: BASO # 0.1 x10^3/uL (0.0-0.2); BASO % 1 % (0-3); EOS # 0.1 x10^3/uL (0.0-0.7); EOS % 1 % (0-3); HEMATOCRIT 45.8 % (39.0-53.0); HEMOGLOBIN 15.1 g/dL (13.0-17.5); LYMPH # 2.2 x10^3/uL (1.0-4.8); LYMPH % 19 % (24-48); MEAN CORPUSCULAR HEMOGLOBIN 31 pg (25-35); MEAN CORPUSCULAR HGB CONC 33 g/dL (31-37); MEAN CORPUSCULAR VOLUME 93 fL (79-100); MONO # 0.9 x10^3/uL (0.0-1.1); MONO % 7 % (0-9); NEUT # 8.3 x10^3/uL (1.8-7.7); NEUT % 72 % (31-73); PLATELET COUNT 153 x10^3/uL (140-400); RED BLOOD COUNT 4.94 x10^6/uL (4.30-5.70); WHITE BLOOD COUNT 11.6 x10^3/uL (4.0-11.0)
[2019-02-28] MEDS: FAMOTIDINE 20 MG TABLET. PO SCH (08:44)
[2019-02-28] MEDS: FUROSEMIDE 20 MG TABLET PO SCH (08:44)
[2019-02-28] MEDS: ISOSORBIDE MONONITRATE ER 30 MG TAB.ER.24H PO SCH (08:44)
[2019-02-28] MEDS: hydrALAZINE 10 MG TABLET PO SCH ×2 (08:44→15:24)
[2019-02-28] MEDS ORDERED: LISINOPRIL 10 MG TABLET PO SCH (09:00)
[2019-02-28 09:04] LABS: CALCIUM 8.5 mg/dL (8.5-10.1); CREATININE 1.3 mg/dL (0.7-1.3); GFR 55.8; MAGNESIUM 1.8 mg/dL (1.8-2.4); POTASSIUM 4.5 mmol/L (3.5-5.1)
[2019-02-28] MEDS: IV NORMAL SALINE 1000ML BAG 1,000 ML IV SCH (10:00)
--- NOTE | 2019-02-28 11:06 | PDOC ---
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 GERD low back pain, Osteoarthritis History of Present Illness History of Present Illness 02/27/19 Pt seen and examined by me LARSON RN In NSR on telemonitor Chart reviewed 02/28/19 Pt seen and examined by me LARSON RN Chart reviewed Vitals/I&O Vitals/I&O: Vital Signs Date Time Temp Pulse Resp B/P (MAP) Pulse Ox O2 Delivery O2 Flow Rate FiO2 02/28/19 08:44 72 131/78 02/28/19 08:02 94 Room Air 02/28/19 07:59 97.9 18 97.9 I & O 02/27/19 02/27/19 02/28/19 15:00 23:00 07:00 Intake Total 400 ml 400 ml 600 ml Balance 400 ml 400 ml 600 ml Physical Exam General: Alert, Oriented X3, Cooperative, No acute distress Lungs: Clear, Other Abdomen: Normal bowel sounds, Soft Extremities: No cyanosis Labs Labs: Laboratory Tests Test 02/28/19 08:35 White Blood Count 11.6 x10^3/uL (4.0-11.0) Red Blood Count 4.94 x10^6/uL (4.30-5.70) Hemoglobin 15.1 g/dL (13.0-17.5) Hematocrit 45.8 % (39.0-53.0) Mean Corpuscular Volume 93 fL (79-100) Mean Corpuscular Hemoglobin 31 pg (25-35) Mean Corpuscular Hemoglobin Concent 33 g/dL (31-37) Red Cell Distribution Width 16.0 % (11.5-14.5) Platelet Count 153 x10^3/uL (140-400) Neutrophils (%) (Auto) 72 % (31-73) Lymphocytes (%) (Auto) 19 % (24-48) Monocytes (%) (Auto) 7 % (0-9) Eosinophils (%) (Auto) 1 % (0-3) Basophils (%) (Auto) 1 % (0-3) Neutrophils # (Auto) 8.3 x10^3/uL (1.8-7.7) Lymphocytes # (Auto) 2.2 x10^3/uL (1.0-4.8) Monocytes # (Auto) 0.9 x10^3/uL (0.0-1.1) Eosinophils # (Auto) 0.1 x10^3/uL (0.0-0.7) Basophils # (Auto) 0.1 x10^3/uL (0.0-0.2) Sodium Level 143 mmol/L (136-145) Potassium Level 4.5 mmol/L (3.5-5.1) Chloride Level 105 mmol/L (98-107) Carbon Dioxide Level 28 mmol/L (21-32) Anion Gap 10 (6-14) Blood Urea Nitrogen 20 mg/dL (8-26) Creatinine 1.3 mg/dL (0.7-1.3) Estimated GFR (Cockcroft-Gault) 55.8 Glucose Level 141 mg/dL (70-99) Calcium Level 8.5 mg/dL (8.5-10.1) Magnesium Level 1.8 mg/dL (1.8-2.4) Review of Systems Review of Systems: (-) CP, SOB Assessment and Plan Assessmemt and Plan Problems Medical Problems: (1) Pneumonia Status: Acute afib INSOMNIA RV METH USE Appendectomy 5TH DISC REMOVAL CAD, HTN, Hyperlipidemia 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 Medications: Current Medications Medications (Trade) Dose Ordered Sig/Tarun Route PRN Reason Start Time Stop Time Status Last Admin Dose Admin Lisinopril (Prinivil) 10 mg DAILY PO 02/28/19 09:00 02/28/19 08:43 Lactobacillus Rhamnosus (Culturelle) 1 cap BID PO 02/27/19 21:00 02/28/19 08:43 Piperacillin Sod/ Tazobactam Sod 4.5 gm/Sodium Chloride 100 ml @ 200 mls/hr Q6HRS IV 02/27/19 18:00 02/28/19 05:49 Temazepam (Restoril) 15 mg PRN QHS PRN PO INSOMNIA 02/27/19 21:00 02/27/19 21:08 DEANDRE CABAN III DO Feb 28, 2019 11:06
[2019-02-28 11:08] VITALS: BP 113/72
--- NOTE | 2019-02-28 11:37 | PDOC ---
PULMONARY PROGRESS NOTES Vitals Vital Signs Date Time Temp Pulse Resp B/P (MAP) Pulse Ox O2 Delivery O2 Flow Rate FiO2 02/28/19 11:08 98.1 74 18 113/72 (86) 99 Room Air 98.1 General: Alert, No acute distress HEENT: Other Lungs: Clear, Other Cardiovascular: S1, S2 Abdomen: Soft, Non-tender Extremities: No Edema Labs Laboratory Tests Test 02/26/19 16:25 02/26/19 17:55 02/26/19 20:45 02/27/19 08:20 White Blood Count 11.2 x10^3/uL (4.0-11.0) Red Blood Count 5.86 x10^6/uL (4.30-5.70) Hemoglobin 17.9 g/dL (13.0-17.5) Hematocrit 54.5 % (39.0-53.0) Mean Corpuscular Volume 93 fL (79-100) Mean Corpuscular Hemoglobin 31 pg (25-35) Mean Corpuscular Hemoglobin Concent 33 g/dL (31-37) Red Cell Distribution Width 15.7 % (11.5-14.5) Platelet Count 186 x10^3/uL (140-400) Neutrophils (%) (Auto) 71 % (31-73) Lymphocytes (%) (Auto) 17 % (24-48) Monocytes (%) (Auto) 9 % (0-9) Eosinophils (%) (Auto) 1 % (0-3) Basophils (%) (Auto) 1 % (0-3) Neutrophils # (Auto) 8.0 x10^3/uL (1.8-7.7) Lymphocytes # (Auto) 1.9 x10^3/uL (1.0-4.8) Monocytes # (Auto) 1.0 x10^3/uL (0.0-1.1) Eosinophils # (Auto) 0.1 x10^3/uL (0.0-0.7) Basophils # (Auto) 0.1 x10^3/uL (0.0-0.2) Sodium Level 138 mmol/L (136-145) Potassium Level 4.4 mmol/L (3.5-5.1) Chloride Level 101 mmol/L (98-107) Carbon Dioxide Level 26 mmol/L (21-32) Anion Gap 11 (6-14) Blood Urea Nitrogen 24 mg/dL (8-26) Creatinine 1.3 mg/dL (0.7-1.3) Estimated GFR (Cockcroft-Gault) 55.8 BUN/Creatinine Ratio 18 (6-20) Glucose Level 162 mg/dL (70-99) Calcium Level 9.0 mg/dL (8.5-10.1) Magnesium Level 1.7 mg/dL (1.8-2.4) Total Bilirubin 0.5 mg/dL (0.2-1.0) Aspartate Amino Transf (AST/SGOT) 23 U/L (15-37) Alanine Aminotransferase (ALT/SGPT) 37 U/L (16-63) Alkaline Phosphatase 70 U/L (46-116) Troponin I Quantitative 0.019 ng/mL (0.000-0.055) < 0.017 ng/mL (0.000-0.055) Total Protein 7.4 g/dL (6.4-8.2) Albumin 2.9 g/dL (3.4-5.0) Albumin/Globulin Ratio 0.6 (1.0-1.7) Lactic Acid Level 0.9 mmol/L (0.4-2.0) Urine Collection Type Unknown Urine Color Yellow Urine Clarity Clear Urine pH 5.5 Urine Specific [place] >=1.030 Urine Protein 30 mg/dL (NEG-TRACE) Urine Glucose (UA) >=1000 mg/dL (NEG) Urine Ketones (Stick) Trace mg/dL (NEG) Urine Blood Negative (NEG) Urine Nitrite Negative (NEG) Urine Bilirubin Negative (NEG) Urine Urobilinogen Dipstick 0.2 mg/dL (0.2 mg/dL) Urine Leukocyte Esterase Negative (NEG) Urine RBC 0 /HPF (0-2) Urine WBC Occ /HPF (0-4) Urine Squamous Epithelial Cells Occ /LPF Urine Bacteria 0 /HPF (0-FEW) Urine Opiates Screen Neg (NEG) Urine Methadone Screen Neg (NEG) Urine Barbiturates Neg (NEG) Urine Phencyclidine Screen Neg (NEG) Urine Amphetamine/Methamphetamine Neg (NEG) Urine Benzodiazepines Screen Neg (NEG) Urine Cocaine Screen Neg (NEG) Urine Cannabinoids Screen Neg (NEG) Urine Ethyl Alcohol Neg (NEG) Test 02/27/19 09:25 02/28/19 08:35 White Blood Count 7.4 x10^3/uL (4.0-11.0) 11.6 x10^3/uL (4.0-11.0) Red Blood Count 4.85 x10^6/uL (4.30-5.70) 4.94 x10^6/uL (4.30-5.70) Hemoglobin 15.2 g/dL (13.0-17.5) 15.1 g/dL (13.0-17.5) Hematocrit 45.2 % (39.0-53.0) 45.8 % (39.0-53.0) Mean Corpuscular Volume 93 fL (79-100) 93 fL (79-100) Mean Corpuscular Hemoglobin 31 pg (25-35) 31 pg (25-35) Mean Corpuscular Hemoglobin Concent 34 g/dL (31-37) 33 g/dL (31-37) Red Cell Distribution Width 15.8 % (11.5-14.5) 16.0 % (11.5-14.5) Platelet Count 163 x10^3/uL (140-400) 153 x10^3/uL (140-400) Neutrophils (%) (Auto) 86 % (31-73) 72 % (31-73) Lymphocytes (%) (Auto) 9 % (24-48) 19 % (24-48) Monocytes (%) (Auto) 6 % (0-9) 7 % (0-9) Eosinophils (%) (Auto) 0 % (0-3) 1 % (0-3) Basophils (%) (Auto) 0 % (0-3) 1 % (0-3) Neutrophils # (Auto) 6.3 x10^3/uL (1.8-7.7) 8.3 x10^3/uL (1.8-7.7) Lymphocytes # (Auto) 0.6 x10^3/uL (1.0-4.8) 2.2 x10^3/uL (1.0-4.8) Monocytes # (Auto) 0.4 x10^3/uL (0.0-1.1) 0.9 x10^3/uL (0.0-1.1) Eosinophils # (Auto) 0.0 x10^3/uL (0.0-0.7) 0.1 x10^3/uL (0.0-0.7) Basophils # (Auto) 0.0 x10^3/uL (0.0-0.2) 0.1 x10^3/uL (0.0-0.2) Segmented Neutrophils % 86 % (35-66) Lymphocytes % 8 % (24-48) Monocytes % 6 % (0-10) Platelet Estimate Adequate (ADEQUATE) Magnesium Level 1.7 mg/dL (1.8-2.4) 1.8 mg/dL (1.8-2.4) Thyroid Stimulating Hormone (TSH) 6.128 uIU/mL (0.358-3.74) Sodium Level 143 mmol/L (136-145) Potassium Level 4.5 mmol/L (3.5-5.1) Chloride Level 105 mmol/L (98-107) Carbon Dioxide Level 28 mmol/L (21-32) Anion Gap 10 (6-14) Blood Urea Nitrogen 20 mg/dL (8-26) Creatinine 1.3 mg/dL (0.7-1.3) Estimated GFR (Cockcroft-Gault) 55.8 Glucose Level 141 mg/dL (70-99) Calcium Level 8.5 mg/dL (8.5-10.1) Laboratory Tests Test 02/28/19 08:35 White Blood Count 11.6 x10^3/uL (4.0-11.0) Red Blood Count 4.94 x10^6/uL (4.30-5.70) Hemoglobin 15.1 g/dL (13.0-17.5) Hematocrit 45.8 % (39.0-53.0) Mean Corpuscular Volume 93 fL (79-100) Mean Corpuscular Hemoglobin 31 pg (25-35) Mean Corpuscular Hemoglobin Concent 33 g/dL (31-37) Red Cell Distribution Width 16.0 % (11.5-14.5) Platelet Count 153 x10^3/uL (140-400) Neutrophils (%) (Auto) 72 % (31-73) Lymphocytes (%) (Auto) 19 % (24-48) Monocytes (%) (Auto) 7 % (0-9) Eosinophils (%) (Auto) 1 % (0-3) Basophils (%) (Auto) 1 % (0-3) Neutrophils # (Auto) 8.3 x10^3/uL (1.8-7.7) Lymphocytes # (Auto) 2.2 x10^3/uL (1.0-4.8) Monocytes # (Auto) 0.9 x10^3/uL (0.0-1.1) Eosinophils # (Auto) 0.1 x10^3/uL (0.0-0.7) Basophils # (Auto) 0.1 x10^3/uL (0.0-0.2) Sodium Level 143 mmol/L (136-145) Potassium Level 4.5 mmol/L (3.5-5.1) Chloride Level 105 mmol/L (98-107) Carbon Dioxide Level 28 mmol/L (21-32) Anion Gap 10 (6-14) Blood Urea Nitrogen 20 mg/dL (8-26) Creatinine 1.3 mg/dL (0.7-1.3) Estimated GFR (Cockcroft-Gault) 55.8 Glucose Level 141 mg/dL (70-99) Calcium Level 8.5 mg/dL (8.5-10.1) Magnesium Level 1.8 mg/dL (1.8-2.4) Medications Active Scripts Medications Dose Route/Sig Max Daily Dose Days Date Category Lovastatin 20 Mg Tablet 1 Tab PO DAILY 30 02/23/19 Rx Metoprolol Tartrate 25 Mg Tablet 12.5 Mg PO BID 30 02/23/19 Rx Isosorbide Mononitrate Er (Isosorbide Mononitrate) 30 Mg Tab.er.24h 30 Mg PO DAILY 30 02/23/19 Rx Hydralazine Hcl 10 Mg Tablet 10 Mg PO TID 30 02/23/19 Rx Amiodarone Hcl 200 Mg Tablet 200 Mg PO DAILY 30 02/23/19 Rx Eliquis (Apixaban) 5 Mg Tablet 5 Mg PO BID 30 02/23/19 Rx Synthroid (Levothyroxine Sodium) 100 Mcg Tablet 100 Mcg PO DAILYAC 02/12/19 Reported Lasix (Furosemide) 20 Mg Tablet 1 Tab PO DAILY 30 02/12/19 Rx [Nicotine 21MG] 1 PATCH Patch 1 Patch TD PRN DAILY PRN 02/12/19 Rx Pepcid (Famotidine) 20 Mg Tablet 20 Mg PO BID 07/17/16 Reported Impression . note dictated agree with current rx will follow KATHLEEN LATHAM MD Feb 28, 2019 11:37
--- NOTE | 2019-02-28 12:00 | NUR ---
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 Patient asymptomatic, comfortable in bed. Paged cardiology, awaiting a call back. Will continue to monitor patient.
[2019-02-28] MEDS: ANTI-COAG MONITOR BY PHARMACY. MC PRN (15:21)
[2019-02-28 15:23] VITALS: BP 123/76
[2019-02-28 15:24] VITALS: BP 123/76
--- NOTE | 2019-02-28 16:06 | NUR ---
Discharge Note: Patient was discharged home with self care. Patients IV's were discontinued without any complications by MARY ALICE. Patient was given discharge summary/instructions, follow-ups, prescriptions and educational material. Patient did not have any further questions or concerns. Patient was taken to the ER entrance with all personal belongings accompanied by MARY ALICE Leach, where patients car was parked.
--- NOTE | 2019-03-03 23:27 | DS ---
DATE OF DISCHARGE: 02/28/2019 ADMISSION DIAGNOSES: Atrial fibrillation and pneumonia. DISCHARGE DIAGNOSES: Resolving atrial fibrillation, resolving pneumonia. HOSPITAL COURSE: The patient is a pleasant elderly male who presented with AFib and pneumonia. He was admitted. We gave him negative chronotropic agents, consulted Cardiology and Pulmonary, gave him breathing treatments and oxygen. Over the next few days, he returned to his baseline. We discharged home. DISPOSITION: Home. ACTIVITY: As tolerated. DIET: Low sodium. MEDICATIONS: Please see MRAD. TOTAL TIME: 35 minutes. DEANDRE CABAN DO DR: LUKE/kate JOB#: [id number] / [id number]
== END 2019-02-28 15:30 | disposition home or self-care (01) | DRG 193 ==
LOC: ER 15:56 → 6 SOUTH 17:30
PROVIDERS: ADMIT Family Medicine; ATTEND Family Medicine
DX: J18.9 Pneumonia, unspecified organism (principal); I50.43 Acute on chronic combined systolic (congestive) and diastolic (congestive) heart failure; I13.0 Hypertensive heart and chronic kidney disease with heart failure and stage 1 through stage 4 chronic kidney disease, or unspecified chronic kidney disease; J44.0 Chronic obstructive pulmonary disease with (acute) lower respiratory infection; J44.1 Chronic obstructive pulmonary disease with (acute) exacerbation; I42.8 Other cardiomyopathies; I48.0 Paroxysmal atrial fibrillation; E03.9 Hypothyroidism, unspecified; E78.5 Hyperlipidemia, unspecified; F15.90 Other stimulant use, unspecified, uncomplicated; F17.210 Nicotine dependence, cigarettes, uncomplicated; F32.9 Major depressive disorder, single episode, unspecified; G47.00 Insomnia, unspecified; I25.10 Atherosclerotic heart disease of native coronary artery without angina pectoris; I25.5 Ischemic cardiomyopathy; K21.9 Gastro-esophageal reflux disease without esophagitis; N18.9 Chronic kidney disease, unspecified; Z90.49 Acquired absence of other specified parts of digestive tract; Z95.5 Presence of coronary angioplasty implant and graft
CPT/HCPCS: 36415; 71046; 80048; 80053; 80307; 81001; 83605; 83735; 84443; 84484; 85007; 85025; 87040; 93005; 94640; 94760; 96361; 96365; 96368; 96375; J0456; J0696; J2543; J2930; J3475; J7030; J7620; 99285-25; G0378

== ENCOUNTER 2019-03-21 13:58 | Emergency (ER) | payer SELFPAY ==
[~2019-03-21] VITALS: Ht 175.3 cm; Wt 80.3 kg
[2019-03-21] MEDS ORDERED: KETOROLAC 60 MG/2 ML VIAL. IM ONE (15:00)
--- NOTE | 2019-03-21 15:37 | RAD ---
EXAM: Lumbar spine, 3 views. HISTORY: Pain. COMPARISON: None. FINDINGS: 3 views of the lumbar spine are obtained. There is mild lumbar levocurvature centered at L4. There is no significant listhesis. There is no fracture. There is degenerative endplate remodeling with facet arthropathy at L5-S1. IMPRESSION: 1. Degenerative change at the lumbosacral junction. 2. No acute osseous finding. Electronically signed by: Linda Branham MD (03/21/2019 3:34 PM) [facility]
[2019-03-21 16:05] LABS: BILIRUBIN,URINE SMALL (NEG); CLARITY,URINE CLEAR; COLOR,URINE YELLOW; NITRITE,URINE NEGATIVE (NEG); PROTEIN,URINE 30 mg/dL (NEG-TRACE); UROBILINOGEN,URINE 0.2 mg/dL (0.2 mg/dL)
[2019-03-21 16:26] LABS: HYALINE CASTS, URINE MODERATE /HPF
[2019-03-21 16:27] LABS: SQUAMOUS EPITHELIAL CELL,UR FEW /LPF
[2019-03-21 16:28] LABS: BACTERIA,URINE 0 /HPF (0-FEW); RBC,URINE 0 /HPF (0-2)
[2019-03-21] MEDS ORDERED: METH4TAB2 PO (17:20)
[2019-03-21] MEDS ORDERED: TRAM50TA PO (17:20)
[2019-03-21 17:34] VITALS: BP 152/92
--- NOTE | 2019-03-24 18:47 | PHYS DOC ---
Past Medical History Past Medical History: A-Fib, COPD, Hypertension, Other Additional Past Medical Histor: INSOMNIA,RVR,METH USE Past Surgical History: Appendectomy, Other Additional Past Surgical Histo: 5TH DISC REMOVAL Alcohol Use: None Drug Use: Methamphetamine Adult General Chief Complaint Chief Complaint: FLANK PAIN HPI HPI Patient is a 63 year old male with history of atrial fibrillation, IV drug abuse who presents with nontraumatic right lower back pain 3 days. Patient states pain is 0-10 at rest but 10 out of 10 with movement and ambulation and trunk rotation. Pain is nonradiating. Denies saddle anesthesia, extremity weakness or loss of sensation. No urinary incontinence. No other acute symptoms or complaints.[] Review of Systems Review of Systems ROS as per HPI All other systems were reviewed and found to be within normal limits, except as documented in this note. Current Medications Current Medications Current Medications Medications (Trade) Dose Ordered Sig/Tarun Start Time Stop Time Status Last Admin Dose Admin Ketorolac Tromethamine (Toradol Im) 60 mg 1X ONCE 03/21/19 15:00 03/21/19 15:01 DC 03/21/19 15:12 60 MG Allergies Allergies Allergies Coded Allergies Type Severity Reaction Last Updated Verified No Known Drug Allergies 06/11/15 No Physical Exam Physical Exam Constitutional: Well developed, well nourished, no acute distress, non-toxic appearance. [] HENT: Normocephalic, atraumatic, bilateral external ears normal, oropharynx moist, no oral exudates, nose normal. [] Eyes: PERRLA, EOMI, conjunctiva normal, no discharge. [] Neck: Normal range of motion. [] Cardiovascular:Heart rate regular rhythm, no murmur [] Lungs & Thorax: Bilateral breath sounds clear to auscultation [] Abdomen: Bowel sounds normal, soft, no tenderness [] Skin: Warm, dry, no erythema. [] Back: No tenderness. [] Extremities: No tenderness, no edema. [] Neurologic: Alert and oriented X 3, normal motor function, normal sensory function, no focal deficits noted. [] Psychologic: Affect normal, judgement normal, mood normal. [] Current Patient Data Vital Signs Vital Signs Date Time Temp Pulse Resp B/P (MAP) Pulse Ox O2 Delivery O2 Flow Rate FiO2 03/21/19 17:34 86 16 152/92 (112) 98 Room Air 03/21/19 15:00 98.3 98.3 Lab Values Laboratory Tests Test 03/21/19 15:58 Urine Collection Type Void Urine Color Yellow Urine Clarity Clear Urine pH 6.0 Urine Specific [place] 1.010 Urine Protein 30 mg/dL (NEG-TRACE) Urine Glucose (UA) Negative mg/dL (NEG) Urine Ketones (Stick) Trace mg/dL (NEG) Urine Blood Negative (NEG) Urine Nitrite Negative (NEG) Urine Bilirubin Small (NEG) Urine Urobilinogen Dipstick 0.2 mg/dL (0.2 mg/dL) Urine Leukocyte Esterase Trace (NEG) Urine RBC 0 /HPF (0-2) Urine WBC 1-4 /HPF (0-4) Urine Squamous Epithelial Cells Few /LPF Urine Bacteria 0 /HPF (0-FEW) Urine Hyaline Casts Moderate /HPF Urine Mucus Slight /LPF Microbiology 03/21/19 Urine Culture - Final, Complete 03/21/19 Urine Culture Result 1 (TA) - Final, Complete EKG EKG [] Radiology/Procedures Radiology/Procedures XR lumbar series: No acute findings per radiology report[] Course & Med Decision Making Course & Med Decision Making Pertinent Labs and Imaging studies reviewed. (See chart for details) [Reproducible back pain. No extremity weakness or loss of sensation. Imaging studies unremarkable. Return precautions reviewed.] Dragon Disclaimer Dragon Disclaimer This electronic medical record was generated, in whole or in part, using a voice recognition dictation system. Departure Departure Impression: Primary Impression: Acute lumbar myofascial strain Disposition: ADMITTED INPATIENT Condition: GOOD Patient Instructions: Back Pain, Adult, [id number] Additional Instructions: Avoid strenuous physical activity and heavy lifting. Take Medrol dose and tramadol as needed for additional relief. Follow-up with your PCP for further evaluation and treatment.. Scripts Methylprednisolone (MEDROL) 4 Mg Tab.ds.pk 1 PKG PO UD, #1 PKG Prov: DELFIN ROB DO 03/21/19 Tramadol Hcl (TRAMADOL HCL) 50 Mg Tablet 50 MG PO Q6H PRN for PAIN for 3 Days, #15 TAB 0 Refills Prov: DELFIN ROB DO 03/21/19 DELFIN ROB DO Mar 24, 2019 18:47
[2019-03-28] MEDS ORDERED: CLOP75TA PO (05:58)
== END 2019-03-21 17:29 | disposition home or self-care (01) ==
LOC: ER 13:58
DX: S39.012A Strain of muscle, fascia and tendon of lower back, initial encounter (principal); I48.91 Unspecified atrial fibrillation; J44.9 Chronic obstructive pulmonary disease, unspecified; I10 Essential (primary) hypertension; Z90.89 Acquired absence of other organs; Z98.890 Other specified postprocedural states; F13.90 Sedative, hypnotic, or anxiolytic use, unspecified, uncomplicated; X58.XXXA Exposure to other specified factors, initial encounter; Y93.89 Activity, other specified; Y92.89 Other specified places as the place of occurrence of the external cause; Y99.8 Other external cause status
CPT/HCPCS: 72100; 81001; 87086; 96372; 99285; J1885

== ENCOUNTER 2019-04-04 12:56 | Emergency (ER) | payer MEDICAID ==
[~2019-04-04] VITALS: Ht 175.3 cm; Wt 80.3 kg
[~2019-04-04 12:56] MED LIST changes: +TRAM50TA PO
[2019-04-04] MEDS ORDERED: methylPREDNISolone SOD SUCC PF 125 MG/2 ML VIAL. IV ONE (13:15)
[2019-04-04] MEDS ORDERED: IPRATRPIUM/ALBUTEROL 0.5/2.5MG 3 ML NEBU. NEB ONE (13:15)
--- NOTE | 2019-04-04 13:29 | RAD ---
EXAM: Chest, single view. HISTORY: Short of breath. COMPARISON: 03/27/2019 FINDINGS: A frontal view of the chest is obtained. There is no infiltrate, pleural effusion or pneumothorax. The heart is normal in size. There is suspected linear scarring within the right mid thorax. There is hyperinflation likely due to emphysema. IMPRESSION: No acute pulmonary finding. Electronically signed by: Linda Branham MD (04/04/2019 1:26 PM) [place] [id number]
[2019-04-04 13:30] LABS: BASO # 0.1 x10^3/uL (0.0-0.2); BASO % 1 % (0-3); EOS # 0.3 x10^3/uL (0.0-0.7); EOS % 4 % (0-3); HEMATOCRIT 45.6 % (39.0-53.0); HEMOGLOBIN 15.4 g/dL (13.0-17.5); LYMPH # 1.8 x10^3/uL (1.0-4.8); LYMPH % 26 % (24-48); MEAN CORPUSCULAR HEMOGLOBIN 31 pg (25-35); MEAN CORPUSCULAR HGB CONC 34 g/dL (31-37); MEAN CORPUSCULAR VOLUME 90 fL (79-100); MONO # 0.7 x10^3/uL (0.0-1.1); MONO % 10 % (0-9); NEUT % 59 % (31-73); PLATELET COUNT 185 x10^3/uL (140-400); RED BLOOD COUNT 5.04 x10^6/uL (4.30-5.70); WHITE BLOOD COUNT 6.8 x10^3/uL (4.0-11.0)
[2019-04-04 13:35] LABS: CREATININE 1.4 mg/dL (0.7-1.3); GFR 51.2; POTASSIUM 3.8 mmol/L (3.5-5.1)
--- NOTE | 2019-04-04 13:38 | EKG ---
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
[2019-04-04 13:42] LABS: ALBUMIN 3.4 g/dL (3.4-5.0); ALBUMIN/GLOBULIN RATIO 0.9 (1.0-1.7); TOTAL BILIRUBIN 0.4 mg/dL (0.2-1.0)
--- NOTE | 2019-04-04 13:43 | PHYS DOC ---
Past Medical History Past Medical History: A-Fib, CAD, COPD, Hypertension, Other Additional Past Medical Histor: INSOMNIA,RVR,METH USE Past Surgical History: Appendectomy, Other Additional Past Surgical Histo: lumbar surgery, cardiac cath with stent Additional Information: pt states he "is down to 4-5 cigarettes a day' Alcohol Use: None Drug Use: Methamphetamine Adult General Chief Complaint Chief Complaint: SHORTNESS OF BREATH HPI HPI Patient is a 63 year old male with history of COPD, A. fib, CAD, methamphetamine abuse who presents with increased shortness of breath today. Shortness breath is at rest and worse with exertion. Patient reports productive cough with white sputum. No fever chills or sweats. Reports chest tightness but denies chest pain. Denies increased leg pain or swelling. States she feels as though sudden weather change has triggered his COPD. Patient does not use routinely use inhalers current smoker. Patient does not currently have a PCP. [] Review of Systems Review of Systems ROS as per HPI All other systems were reviewed and found to be within normal limits, except as documented in this note. Current Medications Current Medications Current Medications Medications (Trade) Dose Ordered Sig/Tarun Start Time Stop Time Status Last Admin Dose Admin Albuterol/ Ipratropium (Duoneb) 3 ml 1X ONCE 04/04/19 13:15 04/04/19 13:16 DC 04/04/19 13:20 3 ML Methylprednisolone Sodium Succinate (SOLU-Medrol 125MG VIAL) 125 mg 1X ONCE 04/04/19 13:15 04/04/19 13:16 DC 04/04/19 13:47 125 MG Allergies Allergies Allergies Coded Allergies Type Severity Reaction Last Updated Verified No Known Drug Allergies 06/11/15 No Physical Exam Physical Exam Constitutional: Well developed, well nourished, no acute distress, non-toxic appearance. [] HENT: Normocephalic, atraumatic, bilateral external ears normal, oropharynx moist, nose normal. [] Eyes: PERRLA, EOMI, conjunctiva normal, no discharge. [] Neck: Normal range of motion, no tenderness, supple, no stridor. [] Cardiovascular:Heart rate regular rhythm, no murmur [] Lungs & Thorax: Respirations labored, coarse diminished breath sounds bilaterally no wheezes or rales [] Abdomen: Bowel sounds normal, soft, no tenderness, no masses, no pulsatile masses. [] Skin: Warm, dry, no erythema, no rash. [] Back: No tenderness, no CVA tenderness. [] Extremities: No tenderness, no edema. [] Neurologic: Alert and oriented X 3, normal motor function, normal sensory function, no focal deficits noted. [] Psychologic: Affect normal, judgement normal, mood normal. [] Current Patient Data Vital Signs Vital Signs Date Time Temp Pulse Resp B/P (MAP) Pulse Ox O2 Delivery O2 Flow Rate FiO2 04/04/19 13:21 94 Room Air 04/04/19 13:02 97.4 64 17 132/88 (103) 97.4 Lab Values Laboratory Tests Test 04/04/19 13:10 White Blood Count 6.8 x10^3/uL (4.0-11.0) Red Blood Count 5.04 x10^6/uL (4.30-5.70) Hemoglobin 15.4 g/dL (13.0-17.5) Hematocrit 45.6 % (39.0-53.0) Mean Corpuscular Volume 90 fL (79-100) Mean Corpuscular Hemoglobin 31 pg (25-35) Mean Corpuscular Hemoglobin Concent 34 g/dL (31-37) Red Cell Distribution Width 16.0 % (11.5-14.5) H Platelet Count 185 x10^3/uL (140-400) Neutrophils (%) (Auto) 59 % (31-73) Lymphocytes (%) (Auto) 26 % (24-48) Monocytes (%) (Auto) 10 % (0-9) H Eosinophils (%) (Auto) 4 % (0-3) H Basophils (%) (Auto) 1 % (0-3) Neutrophils # (Auto) 4.0 x10^3/uL (1.8-7.7) Lymphocytes # (Auto) 1.8 x10^3/uL (1.0-4.8) Monocytes # (Auto) 0.7 x10^3/uL (0.0-1.1) Eosinophils # (Auto) 0.3 x10^3/uL (0.0-0.7) Basophils # (Auto) 0.1 x10^3/uL (0.0-0.2) D-Dimer (Deneen) 0.49 ug/mlFEU (0.00-0.50) Sodium Level 141 mmol/L (136-145) Potassium Level 3.8 mmol/L (3.5-5.1) Chloride Level 105 mmol/L (98-107) Carbon Dioxide Level 31 mmol/L (21-32) Anion Gap 5 (6-14) L Blood Urea Nitrogen 19 mg/dL (8-26) Creatinine 1.4 mg/dL (0.7-1.3) H Estimated GFR (Cockcroft-Gault) 51.2 BUN/Creatinine Ratio 14 (6-20) Glucose Level 162 mg/dL (70-99) H Calcium Level 9.0 mg/dL (8.5-10.1) Total Bilirubin 0.4 mg/dL (0.2-1.0) Aspartate Amino Transferase (AST) 22 U/L (15-37) Alanine Aminotransferase (ALT) 28 U/L (16-63) Alkaline Phosphatase 57 U/L (46-116) Troponin I Quantitative < 0.017 ng/mL (0.000-0.055) OP-Wfr-L-Type Natriuretic Peptide 312 pg/mL (0-124) H Total Protein 7.0 g/dL (6.4-8.2) Albumin 3.4 g/dL (3.4-5.0) Albumin/Globulin Ratio 0.9 (1.0-1.7) L Laboratory Tests 04/04/19 13:10 Laboratory Tests 04/04/19 13:10 EKG EKG Chest x-ray: No acute cardiopulmonary disease per radiology report] Radiology/Procedures Radiology/Procedures [Chest x-ray: Reviewed] Course & Med Decision Making Course & Med Decision Making Pertinent Labs and Imaging studies reviewed. (See chart for details) [Significant improvement with treatment. Will continue supportive treatment with PCP. Return precautions reviewed.] Dragon Disclaimer Dragon Disclaimer This electronic medical record was generated, in whole or in part, using a voice recognition dictation system. Departure Departure Impression: Primary Impression: COPD (chronic obstructive pulmonary disease) Disposition: HOME, SELF-CARE Condition: STABLE Referrals: NO PCP (PCP) Patient Instructions: Chronic Obstructive Pulmonary Disease Exacerbation, [id number] Additional Instructions: Please use inhaler and take steroids as directed. Limit tobacco use and follow- up with local primary care physician in 3-5 days for reevaluation. Return to the ED if new or worsening symptoms. Scripts Albuterol Sulfate (Proair Hfa) 8.5 Gm Hfa.aer.ad 2 PUFF IH PRN Q4-6HRS PRN for wheezing for 21 Days, #1 INHALER 0 Refills Prov: DELFIN ROB DO 04/04/19 Prednisone (PREDNISONE) 50 Mg Tablet 1 TAB PO DAILY, #5 TAB Prov: DELFIN ROB DO 04/04/19 DELFIN ROB DO Apr 04, 2019 13:42
[2019-04-04 15:00] VITALS: BP 137/65
[2019-04-04] MEDS ORDERED: ALBU2.5V8 IH (15:11)
[2019-04-04] MEDS ORDERED: PRED50TA PO (15:11)
== END 2019-04-04 15:20 | disposition home or self-care (01) ==
LOC: ER 12:56
DX: J44.9 Chronic obstructive pulmonary disease, unspecified (principal); I48.91 Unspecified atrial fibrillation; I10 Essential (primary) hypertension; F17.210 Nicotine dependence, cigarettes, uncomplicated; I25.10 Atherosclerotic heart disease of native coronary artery without angina pectoris; Z95.5 Presence of coronary angioplasty implant and graft
CPT/HCPCS: 36415; 71045; 80053; 83880; 84484; 85025; 85379; 93005; 94640; 96374; 99285; J2930; J7620

== ENCOUNTER 2019-05-17 11:20 | Emergency (ER) | payer MEDICAID ==
[~2019-05-17] VITALS: Ht 175.3 cm; Wt 80.0 kg
[~2019-05-17 11:20] MED LIST changes: +ALBU2.5V8 IH; +PRED50TA PO; +VANC500V PO
[2019-05-17] MEDS ORDERED: IV NORMAL SALINE 1000ML BAG 1,000 ML IV ONE ×2 (11:45→14:15)
[2019-05-17] MEDS ORDERED: ONDANSETRON PF 4 MG/2 ML VIAL. IVP ONE (11:45)
[2019-05-17 11:56] LABS: BASO # 0.1 x10^3/uL (0.0-0.2); BASO % 1 % (0-3); EOS # 0.1 x10^3/uL (0.0-0.7); EOS % 0 % (0-3); HEMATOCRIT 45.9 % (39.0-53.0); HEMOGLOBIN 15.7 g/dL (13.0-17.5); LYMPH # 1.6 x10^3/uL (1.0-4.8); LYMPH % 11 % (24-48); MEAN CORPUSCULAR HEMOGLOBIN 31 pg (25-35); MEAN CORPUSCULAR HGB CONC 34 g/dL (31-37); MEAN CORPUSCULAR VOLUME 91 fL (79-100); MONO # 1.2 x10^3/uL (0.0-1.1); MONO % 8 % (0-9); NEUT # 11.5 x10^3/uL (1.8-7.7); NEUT % 80 % (31-73); PLATELET COUNT 235 x10^3/uL (140-400); RED BLOOD COUNT 5.05 x10^6/uL (4.30-5.70); WHITE BLOOD COUNT 14.4 x10^3/uL (4.0-11.0)
--- NOTE | 2019-05-17 11:56 | PHYS DOC ---
Past Medical History Past Medical History: A-Fib, CAD, CHF, COPD, Diabetes-Type II, High Cholesterol, Hypertension, Hypothyroid, SC, Other Additional Past Medical Histor: INSOMNIA,RVR,METH USE,RENAL INSUFF,SYNCOPE Past Surgical History: Angioplasty, Appendectomy, Other Additional Past Surgical Histo: lumbar surgery,cardiac cath with stent Smoking Status: Current Every Day Smoker Alcohol Use: None Drug Use: Methamphetamine Adult General Chief Complaint Chief Complaint: ABDOMINAL PAIN HPI HPI Patient is a 63 year old male who presented to ER today for evaluation of abdominal pain with diarrhea started yesterday. he was evaluated here, admitted on the , and discharged home on 05/02 for C. difficile colitis. Patient was discharged home with vancomycin. Patient said when he got home he felt much better, followed up with his family doctor on Sunday and he was doing okay. Then yesterday he started having abdominal pain with MASSIVE diarrhea again. He denies any chest pain, no trouble breathing. Patient denies any blood in his stool. he has history hypertension, A. fib. He denies any cough, no fever. Review of Systems Review of Systems aLL OTHER ros IS NEGATIVE UNLESS OTHERWISE NOTED IN hpi Current Medications Current Medications Current Medications Medications (Trade) Dose Ordered Sig/Tarun Start Time Stop Time Status Last Admin Dose Admin Ondansetron HCl (Zofran) 4 mg 1X ONCE 05/17/19 11:45 05/17/19 11:46 DC 05/17/19 11:51 4 MG Sodium Chloride 1,000 ml @ 1,000 mls/hr 1X ONCE 05/17/19 14:15 05/17/19 15:14 DC 05/17/19 14:15 1,000 MLS/HR Allergies Allergies Allergies Coded Allergies Type Severity Reaction Last Updated Verified No Known Drug Allergies 06/11/15 No Physical Exam Physical Exam See above Constitutional: Well developed, well nourished, no acute distress, non-toxic appearance. [] HENT: Normocephalic, atraumatic, bilateral external ears normal, oropharynx moist, no oral exudates, nose normal. [] Eyes: PERRLA, EOMI, conjunctiva normal, no discharge. [] Neck: Normal range of motion, no tenderness, supple, no stridor. [] Cardiovascular:Heart rate regular rhythm, no murmur [] Lungs & Thorax: Bilateral breath sounds clear to auscultation [] Abdomen: Bowel sounds normal, soft, Diffuse abdominal tenderness to palpation, no masses, no pulsatile masses. [] Skin: Warm, dry, no erythema, no rash. [] Back: No tenderness, no CVA tenderness. [] Extremities: No tenderness, no cyanosis, no clubbing, ROM intact, no edema. [] Neurologic: Alert and oriented X 3, normal motor function, normal sensory function, no focal deficits noted. [] Psychologic: Affect normal, judgement normal, mood normal. [] Current Patient Data Vital Signs Vital Signs Date Time Temp Pulse Resp B/P (MAP) Pulse Ox O2 Delivery O2 Flow Rate FiO2 05/17/19 14:48 72 16 118/68 (85) 98 Nasal Cannula 3.0 05/17/19 11:30 98.1 98.1 Lab Values Laboratory Tests Test 05/17/19 11:50 05/17/19 12:55 White Blood Count 14.4 x10^3/uL (4.0-11.0) H Red Blood Count 5.05 x10^6/uL (4.30-5.70) Hemoglobin 15.7 g/dL (13.0-17.5) Hematocrit 45.9 % (39.0-53.0) Mean Corpuscular Volume 91 fL (79-100) Mean Corpuscular Hemoglobin 31 pg (25-35) Mean Corpuscular Hemoglobin Concent 34 g/dL (31-37) Red Cell Distribution Width 16.0 % (11.5-14.5) H Platelet Count 235 x10^3/uL (140-400) Neutrophils (%) (Auto) 80 % (31-73) H Lymphocytes (%) (Auto) 11 % (24-48) L Monocytes (%) (Auto) 8 % (0-9) Eosinophils (%) (Auto) 0 % (0-3) Basophils (%) (Auto) 1 % (0-3) Neutrophils # (Auto) 11.5 x10^3/uL (1.8-7.7) H Lymphocytes # (Auto) 1.6 x10^3/uL (1.0-4.8) Monocytes # (Auto) 1.2 x10^3/uL (0.0-1.1) H Eosinophils # (Auto) 0.1 x10^3/uL (0.0-0.7) Basophils # (Auto) 0.1 x10^3/uL (0.0-0.2) Sodium Level 139 mmol/L (136-145) Potassium Level 4.1 mmol/L (3.5-5.1) Chloride Level 101 mmol/L (98-107) Carbon Dioxide Level 27 mmol/L (21-32) Anion Gap 11 (6-14) Blood Urea Nitrogen 21 mg/dL (8-26) Creatinine 1.7 mg/dL (0.7-1.3) H Estimated GFR (Cockcroft-Gault) 40.9 BUN/Creatinine Ratio 12 (6-20) Glucose Level 106 mg/dL (70-99) H Calcium Level 9.4 mg/dL (8.5-10.1) Total Bilirubin 0.9 mg/dL (0.2-1.0) Aspartate Amino Transferase (AST) 18 U/L (15-37) Alanine Aminotransferase (ALT) 23 U/L (16-63) Alkaline Phosphatase 79 U/L (46-116) Total Protein 7.4 g/dL (6.4-8.2) Albumin 3.7 g/dL (3.4-5.0) Albumin/Globulin Ratio 1.0 (1.0-1.7) Lipase 194 U/L (73-393) Urine Collection Type Unknown Urine Color Yellow Urine Clarity Clear Urine pH 5.5 Urine Specific [place] 1.015 Urine Protein 30 mg/dL (NEG-TRACE) Urine Glucose (UA) Negative mg/dL (NEG) Urine Ketones (Stick) Negative mg/dL (NEG) Urine Blood Negative (NEG) Urine Nitrite Negative (NEG) Urine Bilirubin Negative (NEG) Urine Urobilinogen Dipstick 0.2 mg/dL (0.2 mg/dL) Urine Leukocyte Esterase Negative (NEG) Urine RBC 1-2 /HPF (0-2) Urine WBC Occ /HPF (0-4) Urine Squamous Epithelial Cells Few /LPF Urine Bacteria 0 /HPF (0-FEW) Urine Hyaline Casts Few /HPF Urine Mucus Marked /LPF Laboratory Tests 05/17/19 11:50 Laboratory Tests 05/17/19 11:50 EKG EKG [] Radiology/Procedures Radiology/Procedures [][facility] [address] [place] [address] IMAGING REPORT Signed PATIENT: MEMO KINNEYCOUNT: [id number] : 1955 LOCATION: ER AGE: 63 SEX: M EXAM STATUS: REG ER ORD. PHYSICIAN: BRIGHT CLEARY DO REASON: abdominal pain, diarrhea PROCEDURE: CT ABDOMEN PELVIS WO CONTRAST CT ABDOMEN PELVIS WO CONTRAST Indication: Abdominal pain, diarrhea. Exposure: One or more of the following individualized dose reduction techniques were utilized for this examination: 1. Automated exposure control 2. Adjustment of the mA and/or kV according to patient size 3. Use of iterative reconstruction technique. Comparison: None are available. Technique: No intravenous contrast given. No oral contrast per request. Findings: Evaluation of solid viscera, bowel and vasculature is compromised by the noncontrast technique. Small subpleural nodule in the right lung base posteromedially measures 5 mm. Coronary artery calcification. Liver and spleen appear unremarkable. Pancreas unremarkable. No evidence of adrenal mass. Right kidney demonstrates no evidence of hydronephrosis or calculus. Left kidney is severely small and atrophic, only measuring 2.9 cm longitudinal. There may be a few tiny gallstones. Aortoiliac ectasia and calcification. Mild aneurysmal dilatation of the aorta up to 3.3 cm wide. Left common iliac artery aneurysm measuring 2.5 cm. Right common iliac artery measures 1.9 cm. No significant pathologic lymph node enlargement is identified. No evidence of gastric distention. No significant small bowel distention. Colonic diverticulosis. No definite acute colitis is suggested. The appendix is not clearly seen. No evidence of ascites. No evidence of pneumoperitoneum. Urinary bladder is mild wall thickening but that could be due to incomplete distention. Degenerative changes of the spine. No aggressive bone destruction. IMPRESSION: 1. Mild infrarenal abdominal aortic aneurysm, 3.3 cm diameter. 2. Common iliac artery aneurysmal dilatation, 2.5 cm on the left, 1.9 cm on the right. 3. Small subpleural right pulmonary nodule, measuring 5 mm. As per revised Fleischner guidelines, no follow-up is necessary if patient is low risk. If high risk, consider follow-up CT chest in 12 months. 4. Left kidney is severely small and atrophic. 5. Possible several tiny gallstones. Electronically signed by: Memo Osullivan MD (05/17/2019 1:41 PM) [id number] DICTATED and SIGNED BY: MEMO OSULLIVAN MD DATE: 05/17/19 1347 Course & Med Decision Making Course & Med Decision Making Pertinent Labs and Imaging studies reviewed. (See chart for details) Patient was treated for 9 days of vancomycin for C.DIFF COLITIS. Consulted with the hospitalist who discharged patient home two weeks ago, Dr. Erick Caceres, who recommended to put patient on 7 more days of Vancomycin PO, discharged home, follow up with PCP. Dragch[employer] Disclaimer Dragon Disclaimer This electronic medical record was generated, in whole or in part, using a voice recognition dictation system. Departure Departure Impression: Primary Impression: Diarrhea Disposition: , SELF-CARE Condition: IMPROVED Referrals: NO PCP (PCP) FOLLOW UP WITH YOUR DOCTOR NEXT WEEK FOR REEVALUATION Patient Instructions: Diarrhea Additional Instructions: Thank you for visiting our Emergency Department. We appreciate you trusting us with your care. If any additional problems come up don't hesitate to return to visit us. Please follow up with your primary care provider so they can plan additional care if needed and know about the problem that you had. If symptoms worsen come back to the Emergency Department. Any concerning symptoms that start such as chest pain, shortness of air, weakness or numbness on one side of the body, running high fevers or any other concerning symptoms return to the ER. Scripts Vancomycin Hcl (VANCOMYCIN HCL) 500 Mg Vial 125 MG PO QID for c diff for 7 Days, #36 EACH Prov: BRIGHT CLEARY DO 05/17/19 BRIGHT CLEARY DO May 17, 2019 11:56
[2019-05-17 12:11] LABS: CALCIUM 9.4 mg/dL (8.5-10.1); CREATININE 1.7 mg/dL (0.7-1.3); GFR 40.9; POTASSIUM 4.1 mmol/L (3.5-5.1)
[2019-05-17 12:16] LABS: ALBUMIN 3.7 g/dL (3.4-5.0); TOTAL BILIRUBIN 0.9 mg/dL (0.2-1.0); TOTAL PROTEIN 7.4 g/dL (6.4-8.2)
[2019-05-17 13:31] LABS: BILIRUBIN,URINE NEGATIVE (NEG); CLARITY,URINE CLEAR; COLOR,URINE YELLOW; NITRITE,URINE NEGATIVE (NEG); PH,URINE 5.5; PROTEIN,URINE 30 mg/dL (NEG-TRACE); UROBILINOGEN,URINE 0.2 mg/dL (0.2 mg/dL)
[2019-05-17 13:37] LABS: BACTERIA,URINE 0 /HPF (0-FEW); HYALINE CASTS, URINE FEW /HPF; SQUAMOUS EPITHELIAL CELL,UR FEW /LPF; WBC,URINE OCC /HPF (0-4)
--- NOTE | 2019-05-17 13:44 | RAD ---
CT ABDOMEN PELVIS WO CONTRAST Indication: Abdominal pain, diarrhea. Exposure: One or more of the following individualized dose reduction techniques were utilized for this examination: 1. Automated exposure control 2. Adjustment of the mA and/or kV according to patient size 3. Use of iterative reconstruction technique. Comparison: None are available. Technique: No intravenous contrast given. No oral contrast per request. Findings: Evaluation of solid viscera, bowel and vasculature is compromised by the noncontrast technique. Small subpleural nodule in the right lung base posteromedially measures 5 mm. Coronary artery calcification. Liver and spleen appear unremarkable. Pancreas unremarkable. No evidence of adrenal mass. Right kidney demonstrates no evidence of hydronephrosis or calculus. Left kidney is severely small and atrophic, only measuring 2.9 cm longitudinal. There may be a few tiny gallstones. Aortoiliac ectasia and calcification. Mild aneurysmal dilatation of the aorta up to 3.3 cm wide. Left common iliac artery aneurysm measuring 2.5 cm. Right common iliac artery measures 1.9 cm. No significant pathologic lymph node enlargement is identified. No evidence of gastric distention. No significant small bowel distention. Colonic diverticulosis. No definite acute colitis is suggested. The appendix is not clearly seen. No evidence of ascites. No evidence of pneumoperitoneum. Urinary bladder is mild wall thickening but that could be due to incomplete distention. Degenerative changes of the spine. No aggressive bone destruction. IMPRESSION: 1. Mild infrarenal abdominal aortic aneurysm, 3.3 cm diameter. 2. Common iliac artery aneurysmal dilatation, 2.5 cm on the left, 1.9 cm on the right. 3. Small subpleural right pulmonary nodule, measuring 5 mm. As per revised Fleischner guidelines, no follow-up is necessary if patient is low risk. If high risk, consider follow-up CT chest in 12 months. 4. Left kidney is severely small and atrophic. 5. Possible several tiny gallstones. Electronically signed by: Memo Osullivan MD (05/17/2019 1:41 PM) [id number]
[2019-05-17 14:48] VITALS: BP 118/68
[2019-05-17] MEDS ORDERED: VANC500V PO (15:29)
== END 2019-05-17 15:40 | disposition home or self-care (01) ==
LOC: ER 11:20
DX: R19.7 Diarrhea, unspecified (principal); R10.84 Generalized abdominal pain; I11.0 Hypertensive heart disease with heart failure; I50.9 Heart failure, unspecified; I48.91 Unspecified atrial fibrillation; J44.9 Chronic obstructive pulmonary disease, unspecified; E78.00 Pure hypercholesterolemia, unspecified; E03.9 Hypothyroidism, unspecified; Z90.89 Acquired absence of other organs; Z98.890 Other specified postprocedural states; I25.10 Atherosclerotic heart disease of native coronary artery without angina pectoris; I25.2 Old myocardial infarction; Z95.5 Presence of coronary angioplasty implant and graft; F17.200 Nicotine dependence, unspecified, uncomplicated
CPT/HCPCS: 36415; 74176; 80053; 81001; 83690; 85025; 87493; 96361; 96374; 99284; J2405; J7030

== ENCOUNTER → 2019-08-20 | Outpatient (CLI) | payer OTHER ==
[~2019-08-20] MED LIST changes: +CONTRAST GIVEN. MC PRN; +IOHEXOL 300 MG/ML 100ML VIAL. IV ONE; +LEVO-101 PO; -LEVO100T PO
[2019-08-20 13:22] LABS: CREATININE 1.6 mg/dL (0.7-1.3); GFR 43.7
--- NOTE | 2019-08-20 14:45 | RAD ---
Examination: CT CHEST WO CONTRAST History: Reason: F/U LEFT PULMONARY NODULE FROM CT DONE IN JANUARY. / Spl. Instructions: LOW GFR / History: Comparison/Correlation: 07/11/2016 CT chest without contrast, 05/01/2019 CT chest with contrast Findings: Axial images of chest were obtained without contrast. Sagittal and coronal reformatted images were provided. Significant diffuse centrilobular emphysematous involvement of the lung gamez is noted. Bullous emphysematous involvement of the upper lung gamez is especially evident. Tracheobronchial tree is unremarkable. Right hilar calcified lymph nodes are present. Posterior right mid thoracic calcification is present. Previously described anterior right upper lung field opacity has essentially resolved other than residual linear scarring or linear atelectasis. There is a left lower lobe superior segment nodule seen on axial image 44 of series 2 and this measures up to 1.1 cm x 0.5 cm. Subtle calcification within it is seen. It is similar overall upon compression 07/11/2016 CT chest without contrast. No solid suspicious focal nodule or mass. Marked diffuse coronary arterial calcifications present. No suspicious thoracic lymph nodes. Partially visualized upper abdomen is unremarkable. Pulmonary hyperinflation is present. Bony structures are unremarkable for the patient's age. Old left-sided rib fracture is present.. Impression: Minimal residual linear scarring or atelectasis at the anterior right upper lung. No solid suspicious process. No suspicious infiltrate. Left lung nodule is stable since 07/11/2016 compatible with a benign old granulomatous nodule or other benign process. No further follow-up is needed. Severe emphysema. COPD. PQRS Compliance Statement: One or more of the following individualized dose reduction techniques were utilized for this examination: 1. Automated exposure control 2. Adjustment of the mA and/or kV according to patient size 3. Use of iterative reconstruction technique Electronically signed by: Maurizio Escobar MD (08/20/2019 2:42 PM) [id number]
== END | disposition home or self-care (01) ==
LOC: CT 12:22
PROVIDERS: ATTEND Family Medicine
DX: J43.2 Centrilobular emphysema (principal); R91.1 Solitary pulmonary nodule
CPT/HCPCS: 36415; 71250; 82565; 84520